=== PATIENT | female | born 1975 | race African-American/Black ===

== ENCOUNTER 2016-12-26 00:08 | Emergency (ER) | payer OTHER ==
[~2016-12-26] VITALS: Ht 182.9 cm; Wt 124.0 kg
[~2016-12-26 00:08] MED LIST: ALBU1AER5 INH; AZIT250T3 PO; BACT800T5 PO; DARU800T2 PO; DICL75TA PO; DOLU1TAB PO; HYDR-3533 PO; HYDR25TA5 PO; LISI-515 PO; METR-1 PO; RITO100 PO; TRUV200300 PO; ZOFR4TAB3 SL
[2016-12-26 00:09] VITALS: BP 188/111; PULSE 132; RESP 16; TEMP 98.9; O2SAT 99
[2016-12-26 00:20] VITALS: PULSE 109; RESP 18; O2SAT 100
[2016-12-26] MEDS ORDERED: methylPREDNISolone SOD SUCC 125 MG/2 ML VIAL IV PUSH ONE (00:30)
[2016-12-26] MEDS ORDERED: diphenhydrAMINE HCL 50 MG/ML VIAL IV PUSH ONE (00:30)
[2016-12-26] MEDS ORDERED: RESP: ALBUTEROL 2.5 MG/IPRATROPIUM 0.5 MG NEB (SCH) NEB ONE (00:30)
--- NOTE | 2016-12-26 00:33 | PD ---
HPI Chief Complaint: Chest Pain Time Seen by Provider: 00:15 Travel History International Travel<30 days: No Contact w/Intl Traveler<30days: No Traveled to known affect area: No History of Present Illness HPI Patient reports having swelling in the back of her throat and feels her throat is closing she does not know what she could've been exposed to what allergen patient denies having prior episodes of this she is very upset when she comes in the ER and she is phonating and singular ignoring her and acting mildly bizarre she is only been in the ER for about 10 minutes before she becomes very agitated she does have a rattle when she talks but there is no obvious airway compromise at this time does not know what allergen she could've been exposed to PFS Past Medical History Asthma: Yes Autoimmune Disease: Yes Heart Rhythm Problems: No Cardiac Catheterization: No Cardiovascular Problems: Yes (HTN) High Cholesterol: No Congestive Heart Failure: No Diabetes: No Diminished Hearing: No Herniated Disk: Yes (NECK) Hypertension: Yes Immune Disorder: Yes (HIV POS) Renal Failure: Yes Ulcer: Yes PNEUMOCCOCAL Vaccine (Year): 3 ?: Not : 6 Para: 6 Ovarian Cysts: Yes Tubal Ligation: Yes Past Surgical History Coronary Artery Bypass Graft: No Gynecologic Surgery: Yes Social History Alcohol Use: Yes (OCCASSIONALLY) Tobacco Use: Yes (4 TO 6 CIGS A DAY) Substance Use: Yes (MARIJUANA) Allergies-Medications (Allergen,Severity, Reaction): Coded Allergies: acetaminophen (Unverified Allergy, Severe, Itching, 10/04/16) buprenorphine (Unverified Allergy, Severe, 12/26/16) ITCHING, LIP SWELLING oxycodone (Unverified Allergy, Severe, Itching, 12/26/16) Reported Meds & Prescriptions Reported Meds & Active Scripts Active Flagyl (Metronidazole) 500 Mg Tab 500 Mg PO QID Zofran Odt (Ondansetron Odt) 4 Mg Tab 4 Mg SL Q6HR PRN Lortab (Hydrocodone-Acetaminophen) 5-325 Mg Tab 1 Tab PO Q6H PRN Truvada (Emtricitabine-Tenofovir Disoproxil Fumarate) 200-300 Mg Tab 1 Tab PO DAILY Prezista (Darunavir) 800 Mg Tab 800 Mg PO DAILY Tivicay (Dolutegravir Sodium) 50 Mg Tab 50 Mg PO DAILY Lisinopril 20 Mg Tab 20 Mg PO DAILY Diclofenac Sodium DR (Diclofenac Sodium) 75 Mg Tabdr 75 Mg PO BID PRN Bactrim DS (Sulfamethoxazole-Trimethoprim) 800-160 Mg Tab 1 Tab PO BID 7 Days Reported Hydrochlorothiazide 25 Mg Tab 25 Mg PO DAILY Azithromycin 250 Mg Tab 250 Mg PO DAILY Proair Respiclick Inh (Albuterol Sulfate) 90 Mcg/Act Aerp 1 Puff INH Q4H PRN Norvir (Ritonavir) 100 Mg Cap 300 Mg PO BID Review of Systems Except as stated in HPI: all other systems reviewed are Neg HENT: Positive: Sore Throat (throat closing sensation , thinks she was poisoned), Other Physical Exam Narrative initial evaluation of her airway -- it is patent and uvula mild enlarged , tongue normal size She walked out as I went for my stethoscope she was gone , seems slightly paranoid Data Data Last Documented VS Vital Signs Date Time Temp Pulse Resp B/P (MAP) Pulse Ox O2 Delivery O2 Flow Rate FiO2 12/26/16 01:04 12/26/16 00:20 109 18 100 Room Air 12/26/16 00:09 98.9 Orders Orders Methylprednisolone So Succ Inj (Solumedr (12/26/16 00:30) Diphenhydramine Inj (Benadryl Inj) (12/26/16 00:30) Albuterol-Ipratropium Neb (Duoneb Neb) (12/26/16 00:30) MDM Medical Decision Making Medical Screen Exam Complete: Yes Emergency Medical Condition: Yes Differential Diagnosis epiglotitis , bacterial tracheitis, pharyngitis , allergic reaction to airway vs psychogenic Sx Narrative Course I was unable to redirect the pt to stay and I explained to her the need for treatment to assure her throat did not close and risk of airway compromise, she said she would stay but within 4 minutes she walked out Procedures EKG Prior to Arrival: Yes Disposition: 07 AGAINST MEDICAL ADVICE Rick Hardin MD Dec 26, 2016 00:33
== END 2016-12-26 00:21 | disposition left against medical advice (07) ==
LOC: NEPC 00:08
DX: R07.9 Chest pain, unspecified (principal); I10 Essential (primary) hypertension; F17.210 Nicotine dependence, cigarettes, uncomplicated
CPT/HCPCS: 99281

== ENCOUNTER 2016-12-26 00:44 | Inpatient (IN) | payer OTHER ==
[~2016-12-26] VITALS: Ht 182.9 cm; Wt 129.1 kg
[2016-12-26] VITALS (17 sets, daily range): BP systolic 142–187; BP diastolic 81–114; PULSE 64–114; RESP 16–24; TEMP 97.6–98.7; O2SAT 98–100
--- NOTE | 2016-12-26 00:58 | PD ---
HPI Chief Complaint: Chest Pain Time Seen by Provider: 00:55 Travel History International Travel<30 days: No Contact w/Intl Traveler<30days: No Traveled to known affect area: No History of Present Illness HPI The patient is a 41 year old female who presents to the [facility] emergency department with a history of developing a sensation of her throat closing up approximately 2 hours prior to arrival. The patient reports additionally having constant left-sided chest pain associated with left upper quadrant abdominal pain that is been present since March. She reports that she has been seen in the emergency department for this in the past and no particular causes been able to be identified. The patient denies taking any new medications. The patient denies any new food exposures that she is aware of. The patient reports that she did take a Benadryl earlier today for the symptoms. The patient reports having a known history of asthma and COPD. The patient additionally reports having a history of HIV. She reports that she is on retroviral medications. She reports that she last had a CD4 count and viral load done a few months ago, however she does not know the results. She also does not know when she was originally diagnosed with HIV. The patient reports that the pain in her chest and upper abdomen is sharp in character. She reports that she's had a cough with congestion since this morning. She additionally reports that this morning she awoke with a swollen area underneath her chin. She denies having any dental pain. The patient reports having nausea without vomiting. On review of systems otherwise, she denies having any recent known fevers, diarrhea, urinary symptoms, or neurologic symptoms. [facility] Past Medical History Narrative Medical The patient's past medical history is significant for HIV, asthma, COPD, hypertension, chronic renal insufficiency, tobacco use, marijuana use according to the record, history of neck pain related to degenerative disc disease, history of peptic ulcer disease. Asthma: Yes Autoimmune Disease: Yes Heart Rhythm Problems: No Cardiac Catheterization: No Cardiovascular Problems: Yes (HTN) High Cholesterol: No Congestive Heart Failure: No Diabetes: No Diminished Hearing: No Herniated Disk: Yes (NECK) Hypertension: Yes Immune Disorder: Yes (HIV POS) Renal Failure: Yes Ulcer: Yes PNEUMOCCOCAL Vaccine (Year): 3 : 6 Para: 6 Ovarian Cysts: Yes Tubal Ligation: Yes Past Surgical History Narrative Surgical The patient's past surgical history is significant for a bilateral tubal ligation. Coronary Artery Bypass Graft: No Gynecologic Surgery: Yes Social History Alcohol Use: Yes (OCCASSIONALLY) Tobacco Use: Yes (4 TO 6 CIGS A DAY) Substance Use: Yes (MARIJUANA) Allergies-Medications (Allergen,Severity, Reaction): Coded Allergies: acetaminophen (Unverified Allergy, Severe, Itching, 10/04/16) buprenorphine (Unverified Allergy, Severe, 12/26/16) ITCHING, LIP SWELLING oxycodone (Unverified Allergy, Severe, Itching, 12/26/16) Reported Meds & Prescriptions Reported Meds & Active Scripts Active Flagyl (Metronidazole) 500 Mg Tab 500 Mg PO QID Zofran Odt (Ondansetron Odt) 4 Mg Tab 4 Mg SL Q6HR PRN Lortab (Hydrocodone-Acetaminophen) 5-325 Mg Tab 1 Tab PO Q6H PRN Truvada (Emtricitabine-Tenofovir Disoproxil Fumarate) 200-300 Mg Tab 1 Tab PO DAILY Prezista (Darunavir) 800 Mg Tab 800 Mg PO DAILY Tivicay (Dolutegravir Sodium) 50 Mg Tab 50 Mg PO DAILY Lisinopril 20 Mg Tab 20 Mg PO DAILY Diclofenac Sodium DR (Diclofenac Sodium) 75 Mg Tabdr 75 Mg PO BID PRN Bactrim DS (Sulfamethoxazole-Trimethoprim) 800-160 Mg Tab 1 Tab PO BID 7 Days Reported Hydrochlorothiazide 25 Mg Tab 25 Mg PO DAILY Azithromycin 250 Mg Tab 250 Mg PO DAILY Proair Respiclick Inh (Albuterol Sulfate) 90 Mcg/Act Aerp 1 Puff INH Q4H PRN Norvir (Ritonavir) 100 Mg Cap 300 Mg PO BID Review of Systems Except as stated in HPI: all other systems reviewed are Neg General / Constitutional: No: Fever Eyes: No: Visual changes HENT: Positive: Sore Throat, Congestion, No: Headaches, Rhinorrhea Cardiovascular: Positive: Chest Pain or Discomfort Respiratory: Positive: Cough, Shortness of Breath Gastrointestinal: Positive: Nausea, Abdominal Pain, No: Vomiting, Diarrhea Genitourinary: No: Dysuria Musculoskeletal: No: Pain Skin: No Rash Neurologic: No: Weakness Psychiatric: No: Depression Endocrine: No: Polydipsia Hematologic/Lymphatic: No: Easy Bruising Physical Exam Narrative General: The patient is a well-developed well-nourished female in no acute distress. The patient with talking has upper airway congestion noted, sounds of mucus in the upper airway. Head and Neck exam: Head is normocephalic atraumatic. Eyes: EOMI, pupils are equal round and reactive to light. Nose: Midline septum with pink mucous membranes Mouth: Dentition unremarkable. Moist mucus membranes. Posterior oropharynx is mild erythematous with swelling of the uvula consistent with uvulitis. No signs of thrush. No tonsillar hypertrophy. Uvula midline. Airway patent. Following underneath the tongue. Neck: The patient has what palpates to be lymphadenopathy in the anterior cervical chain. No fluctuance. No nuchal rigidity. No thyromegaly. Cardiovascular: Regular rate and rhythm without murmurs, gallops, or rubs. Lungs: Clear to auscultation bilaterally. No wheezes, rhonchi, or rales. The patient has transmission of upper airway sounds with upper airway mucus noted. Abdomen: Soft, with reported tenderness on palpation of the left upper quadrant of the abdomen, no other tenderness on palpation of the other quadrants. No guarding, rebound, or rigidity. Normal bowel sounds are audible. No tenderness on palpation of McBurney's point. Extremities: No clubbing or cyanosis. The patient has trace to 1+ nonpitting edema bilateral lower extremities. 2+ pulses in all 4 extremities. No calf tenderness on palpation. Back: No spinous process tenderness to palpation. No costovertebral angle tenderness to palpation. Neurologic Exam: Grossly nonfocal. Skin Exam: No rash noted. Intact skin that is warm and dry. Data Data Last Documented VS Vital Signs Date Time Temp Pulse Resp B/P (MAP) Pulse Ox O2 Delivery O2 Flow Rate FiO2 12/26/16 03:51 73 16 159/81 (107) 100 Room Air 12/26/16:17 21 12/26/16 00:46 97.6 Orders Orders Electrocardiogram (12/26/16 01:08) Complete Blood Count With Diff (12/26/16 01:08) Comprehensive Metabolic Panel (12/26/16 01:08) Creatine Kinase (Cpk) (12/26/16 01:08) Ckmb (Isoenzyme) Profile (12/26/16 01:08) Troponin I (12/26/16 01:08) B-Type Natriuretic Peptide (12/26/16 01:08) Prothrombin Time / Inr (Pt) (12/26/16 01:08) Act Partial Throm Time (Ptt) (12/26/16 01:08) Lipase (12/26/16 01:08) Urinalysis - C+S If Indicated (12/26/16 01:08) Magnesium (Mg) (12/26/16 01:08) Thyroid Stimulating Hormone (12/26/16 01:08) Chest, Single Ap (12/26/16 01:08) Iv Access Insert/Monitor (12/26/16 01:08) Ecg Monitoring (12/26/16 01:08) Oximetry (12/26/16 01:08) Ed Urine Pregnancytest Poc (12/26/16 01:08) Drug Screen, Random Urine (12/26/16 01:08) Alcohol (Ethanol) (12/26/16 01:08) Ct Soft Tiss Neck W Iv Cont (12/26/16 ) Methylprednisolone So Succ Inj (Solumedr (12/26/16 01:15) Diphenhydramine Inj (Benadryl Inj) (12/26/16 01:15) Famotidine Inj (Pepcid Inj) (12/26/16 01:15) Epinephrine (1:1000) Inj (Adrenalin (1:1 (12/26/16 01:15) Sodium Chlorid 0.9% 500 Ml Inj (Ns 500 M (12/26/16 01:15) Albuterol-Ipratropium Neb (Duoneb Neb) (12/26/16 01:15) CKMB (12/26/16 01:15) CKMB% (12/26/16 01:15) Albuterol-Ipratropium Neb (Duoneb Neb) (12/26/16 02:45) Iohexol 350 Inj (Omnipaque 350 Inj) (12/26/16 02:56) Epinephrine (1:1000) Inj (Adrenalin (1:1 (12/26/16 03:45) Racemic Epinephrine 2.25% Neb (Racepinep (12/26/16 03:45) Admit Order (Ed Use Only) (12/26/16 03:56) Consult Ent (12/26/16 ) Consult General Surgery (12/26/16 ) Labs Laboratory Tests Test 12/26/16 01:15 12/26/16 03:40 White Blood Count 4.5 TH/MM3 Red Blood Count 4.00 MIL/MM3 Hemoglobin 12.1 GM/DL Hematocrit 36.4 % Mean Corpuscular Volume 90.8 FL Mean Corpuscular Hemoglobin 30.1 PG Mean Corpuscular Hemoglobin Concent 33.2 % Red Cell Distribution Width 13.8 % Platelet Count 263 TH/MM3 Mean Platelet Volume 8.7 FL Neutrophils (%) (Auto) 42.3 % Lymphocytes (%) (Auto) 45.9 % Monocytes (%) (Auto) 10.1 % Eosinophils (%) (Auto) 0.9 % Basophils (%) (Auto) 0.8 % Neutrophils # (Auto) 1.9 TH/MM3 Lymphocytes # (Auto) 2.1 TH/MM3 Monocytes # (Auto) 0.5 TH/MM3 Eosinophils # (Auto) 0.0 TH/MM3 Basophils # (Auto) 0.0 TH/MM3 CBC Comment DIFF FINAL Differential Comment Prothrombin Time 10.1 SEC Prothromb Time International Ratio 0.9 RATIO Activated Partial Thromboplast Time 24.0 SEC Blood Urea Nitrogen 13 MG/DL Creatinine 1.04 MG/DL Random Glucose 85 MG/DL Total Protein 9.3 GM/DL Albumin 3.4 GM/DL Calcium Level 8.5 MG/DL Magnesium Level 1.9 MG/DL Alkaline Phosphatase 86 U/L Aspartate Amino Transf (AST/SGOT) 30 U/L Alanine Aminotransferase (ALT/SGPT) 24 U/L Total Bilirubin 0.1 MG/DL Sodium Level 139 MEQ/L Potassium Level 4.1 MEQ/L Chloride Level 107 MEQ/L Carbon Dioxide Level 22.1 MEQ/L Anion Gap 10 MEQ/L Estimat Glomerular Filtration Rate 71 ML/MIN Total Creatine Kinase 136 U/L Creatine Kinase MB 1.3 NG/ML Troponin I LESS THAN 0.02 NG/ML B-Type Natriuretic Peptide 44 PG/ML Lipase 129 U/L Thyroid Stimulating Hormone 3rd Gen 0.998 uIU/ML Ethyl Alcohol Level LESS THAN 3 MG/DL Urine Color YELLOW Urine Turbidity HAZY Urine pH 6.0 Urine Specific [place] 1.014 Urine Protein TRACE mg/dL Urine Glucose (UA) NEG mg/dL Urine Ketones NEG mg/dL Urine Occult Blood SMALL Urine Nitrite NEG Urine Bilirubin NEG Urine Urobilinogen LESS THAN 2.0 MG/DL Urine Leukocyte Esterase TRACE Urine RBC LESS THAN 1 /hpf Urine WBC 1 /hpf Urine Squamous Epithelial Cells 6 /hpf Urine Bacteria RARE /hpf Urine Hyaline Casts 4 /lpf Urine Mucus FEW /lpf Microscopic Urinalysis Comment CULT NOT INDICATED Urine Opiates Screen NEG Urine Barbiturates Screen NEG Urine Amphetamines Screen NEG Urine Benzodiazepines Screen NEG Urine Cocaine Screen NEG Urine Cannabinoids Screen POS MDM Medical Decision Making Medical Screen Exam Complete: Yes Emergency Medical Condition: Yes Medical Record Reviewed: Yes Interpretation(s) Last Impressions Chest X-Ray 12/26/16 0108 Signed Impressions: Service Date/Time: Monday, December 26, 2016 01:16 - CONCLUSION: Cardiomegaly. No acute cardiopulmonary disease. Christiano Harris MD Neck CT 12/26/16 0000 Signed Impressions: Service Date/Time: Monday, December 26, 2016 02:57 - CONCLUSION: 1. Findings of epiglottitis with supraglottic edema and significant narrowing of the glottic and supraglottic airway. The airway is potentially at risk. 2. There is no evidence of abscess but with retropharyngeal effusion Christiano Harris MD Differential Diagnosis Angioedema, versus allergic reaction, versus infectious uvulitis, versus peritonsillar abscess, versus epiglottitis. Narrative Course During the course of the patients emergency department visit, the patients history, examination, and differential diagnosis were reviewed with the patient. The patient was placed on a insulation extruder operator with oximetry and frequent blood pressure monitoring. The patient had IV access obtained and blood work sent for analysis. The patient had an EKG done on arrival. The patient's EKG shows a sinus rhythm without any acute ST segment elevation. A CT scan of the soft tissues of the neck with IV contrast was ordered. Chest x-ray was ordered. The patient was initially provided Solu-Medrol 125 mg IV, famotidine 20 mg IV, Benadryl 25 mg IV, epinephrine 0.3 mg IM. The patient had a DuoNeb 1 administered. The patient was reexamined. The patient's O2 saturations continued to be 97-100 % on room air, however the patient reports continued shortness of breath. The patient's airway was reexamined. The patient's uvula edema appears to be slightly improved. The patient was given a second DuoNeb. The patient again was reexamined and at that point was lying on her side and reported feeling improved. The patients laboratory studies were reviewed and remarkable for a white count of 4.5, hemoglobin 12.1, platelets 263, with a differential remarkable for a lymphocytosis at 45.9, monocytosis at 10.1. CMP is remarkable for creatinine 1.04, total bilirubin 0.1, CPK 136, CK-MB 1.3, troponin I less than 0.02, BNP 44 , total protein 9.3, lipase 129, TSH 0.998, PT 10.1, PTT 24, urine drug screen positive for cannabinoid, alcohol level less than 3, urinalysis shows small occult blood, trace leukocyte esterase, rare bacteria. Radiology studies were reviewed and remarkable for a chest x-ray that shows cardiomegaly, no acute cardiopulmonary disease. CT scan of the soft tissues of the neck shows findings of epiglottitis with supraglottic edema and significant narrowing of the glottic and supraglottic airway. The airway is potentially at risk. There is no evidence of abscess, however retropharyngeal effusion is noted. Lymphadenopathy is noted. A call was emergently placed out to the anesthesiologist conveyor console operator. He requested that I also discussed this with the research and development director conveyor console operator. I spoke to Dr. Michaud regarding this patient's case and he will discuss this further with the anesthesiologist conveyor console operator. Dr. Michaud callback regarding the patient's case. He recommended that a general surgeon be contacted if the patient needs to go to the OR for definitive airway as he would not do a tracheostomy. He recommended continued IV steroids and racemic epinephrine nebulized. Dr. Turner, the anesthesiologist, and I evaluated the patient again at the patient's bedside. At this point, the patient has improved after racemic epinephrine was administered by nebulizer. A call was placed out to the anesthesiologist. Dr. Glover also came and evaluated the patient and the patient appears to be improving according to him as well. He will monitor the patient in the intensive care unit. The patients results were discussed with the patient, including the plan of care. I explained that further testing and/ or monitoring is indicated based on the patients history, examination, and/ or laboratory findings. Therefore, I recommended admission for additional evaluation. The patient expressed understanding and was agreeable with this plan. The patient was admitted to the hospital in guarded condition and sent to a bed under the care of the punchboard stuffer. Critical Care Narrative Aggregate critical care time was 45 minutes. Time to perform other separately billable procedures was not included in the critical care time. My time did not include minutes spent treating any other patients simultaneously or on activities that did not directly contribute to the patient's treatment. The services I provided to this patient were to treat and/or prevent clinically significant deterioration that could result in: Respiratory failure versus cardiovascular collapse I provided critical care services requiring my management, as noted below: Chart data review, documentation time, medication orders and management, vital sign assessments/reviewing monitor data, ordering and reviewing lab tests, ordering and interpreting/reviewing x-rays and diagnostic studies, care of the patient and discussion of the patient with the admitting physicians. Physician Communication Physician Communication The patient's case including history, pertinent physical examination findings, and laboratory studies were discussed with Dr. Glover. It was agreed that the patient would be admitted to the punchboard stuffer service. Diagnosis Primary Impression: Acute epiglottitis Qualified Codes: J05.10 - Acute epiglottitis without obstruction Admitting Information Admitting Physician Requests: Kelsey Perkins MD Dec 26, 2016 00:58
[2016-12-26] MEDS ORDERED: RESP: ALBUTEROL 2.5 MG/IPRATROPIUM 0.5 MG NEB (SCH) NEB ONE ×2 (01:15→02:45)
[2016-12-26] MEDS ORDERED: FAMOTIDINE 20 MG/2 ML VIAL IV PUSH SCH (01:15)
[2016-12-26] MEDS ORDERED: diphenhydrAMINE HCL 50 MG/ML VIAL IV PUSH ONE (01:15)
[2016-12-26] MEDS ORDERED: EPINEPHrine HCL (1:1000) 1 MG/ML VIAL IM ONE ×2 (01:15→03:45)
[2016-12-26] MEDS ORDERED: methylPREDNISolone SOD SUCC 125 MG/2 ML VIAL IV PUSH ONE (01:15)
[2016-12-26] MEDS ORDERED: SODIUM CHLORID 0.9% 500 ML INJ 500 ML IV ONE (01:15)
--- NOTE | 2016-12-26 01:32 | RADRPT ---
EXAM DATE/TIME: 12/26/2016 01:16 [facility] COMPARISON: CHEST SINGLE AP, February 13, 2016, 3:59. INDICATIONS : Chest pain MEDICAL HISTORY : Hypertension. HIV. Renal failure, chronic. SURGICAL HISTORY : Cervical fusion ENCOUNTER: Initial ACUITY: 1 day PAIN SCORE: 8/10 LOCATION: Bilateral chest FINDINGS: The cardiac silhouette is enlarged in transverse diameter. The lungs are free of acute parenchymal op acity. No effusions are identified. Osseous structures are intact. CONCLUSION: Cardiomegaly. No acute cardiopulmonary disease. Christiano Harris MD on December 26, 2016 at 1:30 Board Certified Radiologist. This report was verified electronically.
[2016-12-26 01:41] LABS: AUTOMATED NEUTROPHIL # 1.9 TH/MM3 (1.8-7.7); BASOPHIL % 0.8 % (0.0-2.0); EOSINOPHIL % 0.9 % (0.0-4.0); HEMATOCRIT 36.4 % (35.0-46.0); HEMOGLOBIN 12.1 GM/DL (11.6-15.3); LYMPH % 45.9 % (9.0-44.0); LYMPHOCYTE # 2.1 TH/MM3 (1.0-4.8); MEAN CELL VOLUME 90.8 FL (80.0-100.0); MEAN CORPUSCULAR HEMOGLOBIN 30.1 PG (27.0-34.0); MEAN CORPUSCULAR HGB CONC 33.2 % (32.0-36.0); MEAN PLATELET VOLUME 8.7 FL (7.0-11.0); MONO % 10.1 % (0.0-8.0); MONOCYTE # 0.5 TH/MM3 (0-0.9); NEUT % 42.3 % (16.0-70.0); PLATELET COUNT 263 TH/MM3 (150-450); RED CELL DISTRIBUTION WIDTH 13.8 % (11.6-17.2); WHITE BLOOD COUNT 4.5 TH/MM3 (4.0-11.0)
[2016-12-26 01:58] LABS: INTERNATIONAL NORMALIZED RATIO 0.9 RATIO; PROTHROMBIN TIME - PATIENT 10.1 SEC (9.8-11.6)
[2016-12-26 02:21] LABS: ALKALINE PHOSPHATASE 86 U/L (45-117); ALT (GPT) 24 U/L (10-53); TOTAL BILIRUBIN ADULT 0.1 MG/DL (0.2-1.0); TOTAL PROTEIN 9.3 GM/DL (6.4-8.2); TROPONIN I LESS THAN 0.02 NG/ML (0.02-0.05)
[2016-12-26 02:22] LABS: ALBUMIN 3.4 GM/DL (3.4-5.0); AST (GOT) 30 U/L (15-37); BICARBONATE 22.1 MEQ/L (21.0-32.0); BLOOD UREA NITROGEN 13 MG/DL (7-18); CALCIUM 8.5 MG/DL (8.5-10.1); CHLORIDE 107 MEQ/L (98-107); CREATININE 1.04 MG/DL (0.50-1.00); GLOMERULAR FILTRATION RATE 71 ML/MIN (>89); GLUCOSE,RANDOM 85 MG/DL (74-106); LIPASE 129 U/L (73-393); MAGNESIUM 1.9 MG/DL (1.5-2.5); SODIUM (NA) 139 MEQ/L (136-145)
[2016-12-26] MEDS ORDERED: IOHEXOL 350 MG/ML 10 ML VIAL (for RAD DIAG) IVCONTRAST ONE (02:56)
--- NOTE | 2016-12-26 03:19 | RADRPT ---
EXAM DATE/TIME: 12/26/2016 02:57 [facility] COMPARISON: No previous studies available for comparison. INDICATIONS : Sore throat; possible abscess. IV CONTRAST: 70 cc Omnipaque 350 (iohexol) IV RADIATION DOSE: 20.84 CTDIvol (mGy) MEDICAL HISTORY : Hypertension. HIV. Asthma SURGICAL HISTORY : Tubal ligation. Cervical fusion ENCOUNTER: Initial ACUITY: 1 day PAIN SCALE: 5/10 LOCATION: neck TECHNIQUE: Volumetric scanning of the neck was performed. Using automated exposure control and adjustment of th e mA and/or kV according to patient size, radiation dose was kept as low as reasonably achievable to obtain optimal diagnostic quality images. DICOM format image data is available electronically for r eview and comparison. FINDINGS: No deeply infiltrating mass is identified. The epiglottis is enlarged and there is also edema involvi ng the hypopharynx and glottis in a circumferential fashion. There is edema in the retropharyngeal T here is no evidence of abscess. The thyroid gland demonstrates no abnormality. The lung apices demons trate no abnormality. There is bilateral adenopathy likely reactive in nature. CONCLUSION: 1. Findings of epiglottitis with supraglottic edema and significant narrowing of the glottic and supr aglottic airway. The airway is potentially at risk. 2. There is no evidence of abscess but with retropharyngeal effusion Christiano Harris MD on December 26, 2016 at 3:13 Board Certified Radiologist. This report was verified electronically.
[2016-12-26] MEDS ORDERED: RESP: RACEPINEPHRINE 2.25% 0.5 ML NEB NEB ONE (03:45)
[2016-12-26 04:03] LABS: BACTERIA, URINE RARE /hpf; BILIRUBIN, URINE NEG (NEG); BLOOD, URINE SMALL (NEG); GLUCOSE,URINE NEG (NEG); HYALINE CAST, URINE 4 /lpf (RARE); KETONE, URINE NEG (NEG); MUCUS URINE FEW /lpf (OCC); NITRITE,URINE NEG (NEG); SQUAMOUS EPITHELIAL CELL URINE 6 /hpf (0-5); URINE COLOR YELLOW (YELLW/STRAW); URINE LEUKOCYTE ESTERASE TRACE (NEG)
--- NOTE | 2016-12-26 04:39 | HHI.HP ---
HPI Service Critical Care Medicine Primary Care Physician Unknown Admission Diagnosis Epiglottitis Diagnosis: Travel History International Travel<30 Days: No Contact w/Intl Traveler <30 Da: No Traveled to Known Affected Are: No History of Present Illness 41 year old female presents with a history of developing a sensation of her throat closing up approximately 2 hours prior to arrival. The patient reports additionally having constant left-sided chest pain associated with left upper quadrant abdominal pain that is been present since March. She reports that she has been seen in the emergency department for this in the past and no particular causes been able to be identified. The patient denies taking any new medications. The patient denies any new food exposures that she is aware of. The patient reports that she did take a Benadryl earlier today for the symptoms without any relief or improvement. She has a known history of asthma and COPD. she also reports having a history of HIV and is compliant with her retroviral medications. She had her last CD4 count and viral load done a few months ago, however she does not know the results. She reports that she's had a cough with congestion since this morning. The CT of the neck done in the emergency department showed acute epiglottitis with supra-epiglottic edema. She is admitted to ICU for an airway close monitoring. Review of Systems Constitutional: DENIES: Diaphoretic episodes, Fatigue, Fever, Weight gain, Weight loss, Chills, Dizziness, Change in appetite, Night Sweats Endocrine: DENIES: Abnorml menstrual pattern, Heat/cold intolerance, Polydipsia , Polyuria, Polyphagia Eyes: DENIES: Blurred vision, Diplopia, Eye inflammation, Eye pain, Vision loss , Photosensitivity, Double Vision Ears, nose, mouth, throat: DENIES: Tinnitus, Hearing loss, Vertigo, Nasal discharge, Oral lesions, Throat pain, Hoarseness, Ear Pain, Running Nose, Epistaxis, Sinus Pain, Toothache, Odynophagia Respiratory: DENIES: Apneas, Cough, Snoring, Wheezing, Hemoptysis, Sputum production, Shortness of breath Cardiovascular: DENIES: Chest pain, Palpitations, Syncope, Dyspnea on Exertion , PND, Lower Extremity Edema, Orthopnea, Claudication Gastrointestinal: DENIES: Abdominal pain, Black stools, Bloody stools, Constipation, Diarrhea, Nausea, Vomiting, Difficulty Swallowing, Anorexia Genitourinary: DENIES: Abnormal vaginal bleeding, Dysmenorrhea, Dyspareunia, Sexual dysfunction, Urinary frequency, Urinary incontinence, Urgency, Hematuria , Dysuria, Nocturia, Vaginal discharge Musculoskeletal: DENIES: Joint pain, Muscle aches, Stiffness, Joint Swelling, Back pain, Neck pain Integumentary: DENIES: Abnormal pigmentation, Pruritus, Rash, Nail changes, Breast masses, Breast skin changes, Nipple discharge Hematologic/lymphatic: DENIES: Bruising, Lymphadenopathy Immunologic/allergic: DENIES: Eczema, Urticaria Neurologic: DENIES: Abnormal gait, Headache, Localized weakness, Paresthesias, Seizures, Speech Problems, Tremor, Poor Balance Psychiatric: DENIES: Anxiety, Confusion, Mood changes, Depression, Hallucinations, Agitation, Suicidal Ideation, Homicidal Ideation, Delusions Past Family Social History Allergies: Coded Allergies: acetaminophen (Unverified Allergy, Severe, Itching, 10/04/16) buprenorphine (Unverified Allergy, Severe, 12/26/16) ITCHING, LIP SWELLING oxycodone (Unverified Allergy, Severe, Itching, 12/26/16) Past Medical History HIV, asthma, COPD, hypertension, chronic renal insufficiency, tobacco use, marijuana use according to the record, history of neck pain related to degenerative disc disease, history of peptic ulcer disease. Past Surgical History Tubal ligation Reported Medications Reported Meds & Active Scripts Active Flagyl (Metronidazole) 500 Mg Tab 500 Mg PO QID Zofran Odt (Ondansetron Odt) 4 Mg Tab 4 Mg SL Q6HR PRN Lortab (Hydrocodone-Acetaminophen) 5-325 Mg Tab 1 Tab PO Q6H PRN Truvada (Emtricitabine-Tenofovir Disoproxil Fumarate) 200-300 Mg Tab 1 Tab PO DAILY Prezista (Darunavir) 800 Mg Tab 800 Mg PO DAILY Tivicay (Dolutegravir Sodium) 50 Mg Tab 50 Mg PO DAILY Lisinopril 20 Mg Tab 20 Mg PO DAILY Diclofenac Sodium DR (Diclofenac Sodium) 75 Mg Tabdr 75 Mg PO BID PRN Bactrim DS (Sulfamethoxazole-Trimethoprim) 800-160 Mg Tab 1 Tab PO BID 7 Days Reported Hydrochlorothiazide 25 Mg Tab 25 Mg PO DAILY Azithromycin 250 Mg Tab 250 Mg PO DAILY Proair Respiclick Inh (Albuterol Sulfate) 90 Mcg/Act Aerp 1 Puff INH Q4H PRN Norvir (Ritonavir) 100 Mg Cap 300 Mg PO BID Active Ordered Medications Current Medications Medications (Trade) Dose Ordered Sig/Fiona Route PRN Reason Start Time Stop Time Status Last Admin Dose Admin Famotidine (Pepcid Inj) 20 mg ONCE IV PUSH 12/26/16 01:15 12/26/16 01:30 Azithromycin (Zithromax) 250 mg DAILY PO 12/26/16 09:00 Darunavir (Prezista) 800 mg DAILY PO 12/26/16 09:00 Diclofenac Sodium (Voltaren Dr) 75 mg BID PRN PO PAIN SCALE 1 TO 10 12/26/16 04:45 UNV Emtricitabine/ Tenofovir (Truvada 200-300 Mg) 1 tab DAILY PO 12/26/16 09:00 Acetaminophen/ Hydrocodone Bitart ([place] 5-325 Mg) 1 tab Q6H PRN PO PAIN 12/26/16 04:45 UNV Metronidazole (Flagyl) 500 mg QID PO 12/26/16 09:00 Ritonavir (Norvir) 300 mg BID PO 12/26/16 09:00 Trimethoprim/ Sulfamethoxazole (Bactrim Ds 800-160 Mg) 1 tab BID PO 12/26/16 09:00 Non-Formulary Medication 1 puff Q4H PRN INH SHORTNESS OF BREATH 12/26/16 04:45 UNV Sodium Chloride 1,000 ml @ 84 mls/hr [id number] IV 12/26/16 04:32 Sodium Chloride (NS Flush) 2 ml UNSCH PRN IV FLUSH FLUSH AFTER USING IV ACCESS 12/26/16 04:45 Sodium Chloride (NS Flush) 2 ml BID IV FLUSH 12/26/16 09:00 Acetaminophen (Tylenol) 650 mg Q6H PRN PO PAIN 1-10 AND/OR FEVER >101F 12/26/16 04:45 UNV Famotidine (Pepcid Inj) 20 mg Q12HR IV PUSH 12/26/16 09:00 UNV Ondansetron HCl (Zofran Inj) 4 mg Q6H PRN IV PUSH NAUSEA OR VOMITING 12/26/16 04:45 UNV Albuterol/ Ipratropium (Duoneb Neb) 1 ampule Q6HR NEB INH 12/26/16 10:00 UNV Albuterol/ Ipratropium (Duoneb Neb) 1 ampule Q2HR NEB PRN INH WHEEZING 11/6/17 04:45 UNV Heparin Sodium (Porcine) (Heparin Inj) 5,000 units Q8H SQ 12/26/16 04:45 UNV Miscellaneous Information 1 [id number] XX 12/26/16 04:45 UNV Chlorhexidine Gluconate (Chlorhexidine 2% Cloth) 3 pack Taper DAILY@04 TOP 12/27/16 04:00 12/23/17 03:59 UNV Chlorhexidine Gluconate (Chlorhexidine 2% Cloth) 3 pack UNSCH PRN TOP HYGIENIC CARE 12/26/16 04:45 UNV Senna/Docusate Sodium (Jaylin-Colace) 1 tab BID PO 12/26/16 09:00 UNV Magnesium Hydroxide (Milk Of Magnesia Liq) 30 ml Q12H PRN PO Mild constipation 12/26/16 04:45 UNV Sennosides (Senokot) 17.2 mg Q12H PRN PO Moderate constipation 12/26/16 04:45 UNV Bisacodyl (Dulcolax Supp) 10 mg DAILY PRN RECTAL SEVERE CONSITIPATION 12/26/16 04:45 UNV Lactulose (Lactulose Liq) 30 ml DAILY PRN PO SEVERE CONSITIPATION 12/26/16 04:45 UNV Ceftriaxone Sodium 1000 mg/ Sodium Chloride 100 ml @ 200 mls/hr Q12H IV 12/26/16 04:45 UNV Pharmacy Profile Note 0 ml @ 0 mls/hr UNSCH OTHER 12/26/16 04:45 UNV Vancomycin HCl 1000 mg/Sodium Chloride 250 ml @ 250 mls/hr ONCE ONCE IV 12/26/16 04:45 12/26/16 05:44 UNV Family History No family history significant for early coronary artery disease Social History Smokes medical marijuana Smokes tobacco Denies alcohol or illicit drug abuse Physical Exam Vital Signs Vital Signs Date Time Temp Pulse Resp B/P (MAP) Pulse Ox O2 Delivery O2 Flow Rate FiO2 12/26/16 03:51 73 16 159/81 (107) 100 Room Air 12/26/16 01:29 98 169/109 12/26/16 01:17 100 21 12/26/16 01:01 106 18 178/111 (133) 100 Room Air 12/26/16 00:55 18 100 Room Air 12/26/16 00:46 97.6 110 20 180/109 (132) 100 Physical Exam GENERAL: Well-nourished, well-developed patient. SKIN: Warm and dry. HEAD: Normocephalic. EYES: No scleral icterus. No injection or drainage. NECK: Supple, trachea midline. No JVD or lymphadenopathy. CARDIOVASCULAR: Regular rate and rhythm without murmurs, gallops, or rubs. RESPIRATORY: Breath sounds equal bilaterally. No accessory muscle use. GASTROINTESTINAL: Abdomen soft, non-tender, nondistended. MUSCULOSKELETAL: No cyanosis, or edema. BACK: Nontender without obvious deformity. NEURO EXAM: Mental Status: The patient is alert and oriented to person, place, and time with normal speech. Cranial Nerves: Visual acuity intact bilaterally. Visual scott normal in all quadrants. Pupils are round, reactive to light. Extraocular movements are intact without ptosis. Hearing is normal bilaterally. Voice is normal. Tongue protrudes midline and moves symmetrically. Reflexes: Biceps, patellar, and Achilles are 2/4 bilaterally. No clonus. Laboratory Laboratory Tests Test 12/26/16 01:15 12/26/16 03:40 White Blood Count 4.5 Red Blood Count 4.00 Hemoglobin 12.1 Hematocrit 36.4 Mean Corpuscular Volume 90.8 Mean Corpuscular Hemoglobin 30.1 Mean Corpuscular Hemoglobin Concent 33.2 Red Cell Distribution Width 13.8 Platelet Count 263 Mean Platelet Volume 8.7 Neutrophils (%) (Auto) 42.3 Lymphocytes (%) (Auto) 45.9 Monocytes (%) (Auto) 10.1 Eosinophils (%) (Auto) 0.9 Basophils (%) (Auto) 0.8 Neutrophils # (Auto) 1.9 Lymphocytes # (Auto) 2.1 Monocytes # (Auto) 0.5 Eosinophils # (Auto) 0.0 Basophils # (Auto) 0.0 CBC Comment DIFF FINAL Differential Comment Prothrombin Time 10.1 Prothromb Time International Ratio 0.9 Activated Partial Thromboplast Time 24.0 Blood Urea Nitrogen 13 Creatinine 1.04 Random Glucose 85 Total Protein 9.3 Albumin 3.4 Calcium Level 8.5 Magnesium Level 1.9 Alkaline Phosphatase 86 Aspartate Amino Transf (AST/SGOT) 30 Alanine Aminotransferase (ALT/SGPT) 24 Total Bilirubin 0.1 Sodium Level 139 Potassium Level 4.1 Chloride Level 107 Carbon Dioxide Level 22.1 Anion Gap 10 Estimat Glomerular Filtration Rate 71 Total Creatine Kinase 136 Creatine Kinase MB 1.3 Troponin I LESS THAN 0.02 B-Type Natriuretic Peptide 44 Lipase 129 Thyroid Stimulating Hormone 3rd Gen 0.998 Ethyl Alcohol Level LESS THAN 3 Urine Color YELLOW Urine Turbidity HAZY Urine pH 6.0 Urine Specific [place] 1.014 Urine Protein TRACE Urine Glucose (UA) NEG Urine Ketones NEG Urine Occult Blood SMALL Urine Nitrite NEG Urine Bilirubin NEG Urine Urobilinogen LESS THAN 2.0 Urine Leukocyte Esterase TRACE Urine RBC LESS THAN 1 Urine WBC 1 Urine Squamous Epithelial Cells 6 Urine Bacteria RARE Urine Hyaline Casts 4 Urine Mucus FEW Microscopic Urinalysis Comment CULT NOT INDICATED Urine Opiates Screen NEG Urine Barbiturates Screen NEG Urine Amphetamines Screen NEG Urine Benzodiazepines Screen NEG Urine Cocaine Screen NEG Urine Cannabinoids Screen POS Result Diagram: 12/26/16 0115 12/26/16 0115 Imaging Last 24 hours Impressions Chest X-Ray 12/26/16 0108 Signed Impressions: Service Date/Time: Monday, December 26, 2016 01:16 - CONCLUSION: Cardiomegaly. No acute cardiopulmonary disease. Christiano Harris MD Neck CT 12/26/16 0000 Signed Impressions: Service Date/Time: Monday, December 26, 2016 02:57 - CONCLUSION: 1. Findings of epiglottitis with supraglottic edema and significant narrowing of the glottic and supraglottic airway. The airway is potentially at risk. 2. There is no evidence of abscess but with retropharyngeal effusion MD Halle Butler VTE Risk Assessment Caprini VTE Risk Assessment: Mod/High Risk (score >= 2) Caprini Risk Assessment Model Point Value = 1 Point Value = 2 Point Value = 3 Point Value = 5 Age 41-60 Minor surgery BMI > 25 kg/m2 Swollen legs Varicose veins or History of unexplained or recurrent spontaneous Oral contraceptives or hormone replacement Sepsis (< 1 month) Serious lung disease, including pneumonia (< 1 month) Abnormal pulmonary function Acute myocardial infarction Congestive heart failure (< 1 month) History of inflammatory bowel disease Medical patient at bed rest Age 61-74 Arthroscopic surgery Major open surgery (> 45 min) Laparoscopic surgery (> 45 min) Malignancy Confined to bed (> 72 hours) Immobilizing plaster cast Central venous access Age >= 75 History of VTE Family history of VTE Factor V Leiden Prothrombin [id number] Lupus anticoagulant Anticardiolipin antibodies Elevated serum homocysteine Heparin-induced thrombocytopenia Other congenital or acquired thrombophilia Stroke (< 1 month) Elective arthroplasty Hip, pelvis, or leg fracture Acute spinal cord injury (< 1 month) Prophylaxis Regimen Total Risk Factor Score Risk Level Prophylaxis Regimen 0-1 Low Early ambulation 2 Moderate Order ONE of the following: *Sequential Compression Device (SCD) *Heparin 5000 units SQ BID 3-4 Higher Order ONE of the following medications: *Heparin 5000 units SQ TID *Enoxaparin/Lovenox 40 mg SQ daily (WT < 150 kg, CrCl > 30 mL/min) *Enoxaparin/Lovenox 30 mg SQ daily (WT < 150 kg, CrCl > 10-29 mL/min) *Enoxaparin/Lovenox 30 mg SQ BID (WT < 150 kg, CrCl > 30 mL/min) AND/OR *Sequential Compression Device (SCD) 5 or more Highest Order ONE of the following medications: *Heparin 5000 units SQ TID (Preferred with Epidurals) *Enoxaparin/Lovenox 40 mg SQ daily (WT < 150 kg, CrCl > 30 mL/min) *Enoxaparin/Lovenox 30 mg SQ daily (WT < 150 kg, CrCl > 10-29 mL/min) *Enoxaparin/Lovenox 30 mg SQ BID (WT < 150 kg, CrCl > 30 mL/min) AND *Sequential Compression Device (SCD) Assessment and Plan Assessment and Plan Epiglottitis - Decadron - Ceftriaxone - Vancomycin - Admit to ICU - O2 supplementation HIV - Continue home HAART medication - Infectious disease consultation for epiglottitis immunocompromised patient Asthma - DuoNeb scheduled and when necessary - IV steroid COPD - DuoNeb scheduled and when necessary Hypertension - Hold home hypertensive meds in the settings of acute infection - Resume when hemodynamically stable DVT GI prophylaxis - Teds SCDs - IV Pepcid - Subcutaneous heparin Critical Care: The total critical care time was 35 minutes. Time to perform other separately billable procedures was not included in the critical care time. Mauro Glover MD Dec 26, 2016 04:39
[2016-12-26] MEDS ORDERED: SODIUM CHLORIDE 0.9% FLUSH 10 ML FLUSH IV FLUSH PRN (04:45)
[2016-12-26] MEDS ORDERED: MAGNESIUM HYDROXIDE SUSP 30 ML CUP PO PRN (04:45)
[2016-12-26] MEDS ORDERED: LACTULOSE SYRUP 20 GM/30 ML CUP PO PRN (04:45)
[2016-12-26] MEDS ORDERED: ONDANSETRON HCL 4 MG/2 ML VIAL IV PUSH PRN (04:45)
[2016-12-26] MEDS ORDERED: SENNOSIDES 8.6 MG TAB PO PRN (04:45)
[2016-12-26] MEDS ORDERED: ACETAMINOPHEN 325 MG TAB PO PRN ×2 (04:45→05:30)
[2016-12-26] MEDS ORDERED: MISCELLANEOUS NURSING INFORMATION XX SCH (04:45)
[2016-12-26] MEDS ORDERED: Vancomycin Consult Pharmacy 1 EA OTHER SCH (04:45)
[2016-12-26] MEDS ORDERED: RESP: ALBUTEROL 2.5 MG/IPRATROPIUM 0.5 MG NEB (PRN) INH (04:45)
[2016-12-26] MEDS ORDERED: CHLORHEXIDINE GLUCONATE 2 % 1 PACK (2 CLOTHS) TOP PRN (04:45)
[2016-12-26] MEDS ORDERED: DICLOFENAC SODIUM 75 MG DELAYED RELEASE TAB PO PRN (04:45)
[2016-12-26] MEDS ORDERED: BISACODYL 10 MG SUPP RECTAL PRN (04:45)
[2016-12-26] MEDS ORDERED: VANCOMYCIN INJ 1,000 MG in SODIUM CHLOR 0.9% 250 ML INJ 250 ML IV ONE (04:45)
[2016-12-26] MEDS ORDERED: ACETAMINOPHEN/HYDROcodone 325 MG/5 MG TAB PO PRN (04:45)
[2016-12-26] MEDS: SODIUM CHLOR 0.9% 1000 ML INJ 1,000 ML IV SCH (05:06)
[2016-12-26] MEDS: HEPARIN SODIUM - SQ 10,000 UNITS/ML VIAL SQ SCH ×3 (05:07→20:58)
[2016-12-26] MEDS: cefTRIAXone INJ 1,000 MG in SODIUM CHLORIDE 0.9% INJ 100 ML IV SCH ×2 (05:09→16:53)
[2016-12-26] MEDS ORDERED: ALBUTEROL SULFATE 90 MCG/ACT HFA 8 GM INHALER INH PRN (05:15)
[2016-12-26] MEDS: DEXAMETHASONE SOD PHOS 4 MG/ML VIAL IV PUSH SCH ×4 (05:23→23:38)
[2016-12-26] MEDS ORDERED: VANCOMYCIN INJ 2,000 MG in SODIUM CHLORID 0.9% 500 ML INJ 500 ML IV ONE (06:00)
[2016-12-26] MEDS ORDERED: RESP: RACEPINEPHRINE 2.25% 0.5 ML NEB NEB PRN (06:45)
--- NOTE | 2016-12-26 07:21 | HHI.CCPN ---
Subjective Remarks/Hospital Course 41 year old female presents with a history of developing a sensation of her throat closing up approximately 2 hours prior to arrival. The patient reports additionally having constant left-sided chest pain associated with left upper quadrant abdominal pain that is been present since March. She reports that she has been seen in the emergency department for this in the past and no particular causes been able to be identified. The patient denies taking any new medications. The patient denies any new food exposures that she is aware of. The patient reports that she did take a Benadryl earlier today for the symptoms without any relief or improvement. She has a known history of asthma and COPD. she also reports having a history of HIV and is compliant with her retroviral medications. She had her last CD4 count and viral load done a few months ago, however she does not know the results. She reports that she's had a cough with congestion since this morning. The CT of the neck done in the emergency department showed acute epiglottitis with supra-epiglottic edema. She is admitted to ICU for an airway close monitoring. 12/26: Airway patent and breathing without struggling. Auscultation of neck has no stridor, just mildly accelerated flow. Voice is clearer. Improved after racemic epi, decadron, antibiotics. Will hold lisinopril in case this is a form of angioedema, substitute hydralazine. Objective Vital Signs Date Time Temp Pulse Resp B/P (MAP) Pulse Ox O2 Delivery O2 Flow Rate FiO2 12/26/16 06:30 Room Air 12/26/16 06:30 98.3 64 22 177/114 (135) 100 12/26/16 01:17 21 Intake and Output 12/26/16 12/26/16 12/27/16 08:00 16:00 00:00 Intake Total 600 ml Balance 600 ml Result Diagram: 12/26/16 0115 12/26/16 0115 Imaging Last 24 hours Impressions Chest X-Ray 12/26/16 0108 Signed Impressions: Service Date/Time: Monday, December 26, 2016 01:16 - CONCLUSION: Cardiomegaly. No acute cardiopulmonary disease. Christiano Harris MD Neck CT 12/26/16 0000 Signed Impressions: Service Date/Time: Monday, December 26, 2016 02:57 - CONCLUSION: 1. Findings of epiglottitis with supraglottic edema and significant narrowing of the glottic and supraglottic airway. The airway is potentially at risk. 2. There is no evidence of abscess but with retropharyngeal effusion Christiano Harris MD Objective Remarks GENERAL: Calm patient. SKIN: Warm and dry. HEAD: Normocephalic. EYES: No scleral icterus. No injection or drainage. NECK: Supple, trachea midline. Airway patent without stridor or high-grade obstruction. CARDIOVASCULAR: Regular rate and rhythm without murmurs, gallops, or rubs. No JVD. RESPIRATORY: Breath sounds equal bilaterally. No accessory muscle use. GASTROINTESTINAL: Abdomen soft, non-tender, nondistended. BS active. MUSCULOSKELETAL: No cyanosis, or edema. Well perfused. BACK: Nontender without obvious deformity. NEURO EXAM: O X 3, alert, comfortable. BONITA. Moves 4 limbs. A/P Assessment and Plan Epiglottitis - Decadron - Ceftriaxone - Vancomycin - Admit to ICU - O2 supplementation - Racemic epi 2.25% HIV - Continue home HAART medication - Infectious disease consultation for epiglottitis immunocompromised patient Asthma - DuoNeb scheduled and when necessary - IV steroid COPD - DuoNeb scheduled and when necessary Hypertension - Hold home hypertensive meds in the settings of acute infection - Resume when hemodynamically stable DVT GI prophylaxis - Teds SCDs - IV Pepcid - Subcutaneous heparin Overall impression: Airway is much improved after initial treatment. No signs of high grade obstruction. Ralph Rasheed MD Dec 26, 2016 07:21
--- NOTE | 2016-12-26 08:18 | EKG ---
Date Performed: 12/26/2016 Time Performed: 00:23:30 PTAGE: 41 years EKG: SINUS TACHYCARDIA POSSIBLE LEFT ATRIAL ENLARGEMENT ABNORMAL RHYTHM ECG PREVIOUS TRACING : 02/09/2016 10.18 No significant change from previous tracing noted. DOCTOR: Leighton Gilliland Interpretating Date/Time 12/26/2016 08:18:25
[2016-12-26] MEDS ORDERED: cloNIDine HCL 0.1 MG TAB PO PRN (08:30)
[2016-12-26] MEDS ORDERED: hydrALAZINE HCL 20 MG/ML VIAL IV PUSH PRN (08:30)
[2016-12-26] MEDS: RESP: ALBUTEROL 2.5 MG/IPRATROPIUM 0.5 MG NEB (SCH) INH ×3 (08:39→20:24)
[2016-12-26] MEDS: SODIUM CHLORIDE 0.9% FLUSH 10 ML FLUSH IV FLUSH SCH ×2 (09:00→20:59)
[2016-12-26] MEDS: RITONAVIR 100 MG TAB PO SCH ×2 (09:10→20:58)
[2016-12-26] MEDS: DARUNAVIR 800 MG TAB PO SCH (09:11)
[2016-12-26] MEDS: FAMOTIDINE 20 MG/2 ML VIAL IV PUSH SCH ×2 (09:11→20:59)
[2016-12-26] MEDS: DOCUSATE SODIUM 50 MG/SENNA 8.6 MG TAB PO SCH ×2 (09:11→20:58)
[2016-12-26] MEDS: SULFAMETHOXAZOLE-TRIMETHOPRIM DS 800-160 MG TAB PO SCH ×2 (09:11→20:58)
[2016-12-26] MEDS: EMTRICITABINE/TENOFOVIR 200 MG/300 MG TAB PO SCH (09:11)
[2016-12-26] MEDS: metroNIDAZOLE 500 MG TAB PO SCH ×4 (09:11→20:59)
[2016-12-26] MEDS: AZITHROMYCIN 250 MG TAB PO SCH (09:11)
[2016-12-26] MEDS: DOLUTEGRAVIR SODIUM 50 MG TAB PO SCH (09:11)
[2016-12-26] MEDS: HYDROCHLOROTHIAZIDE 25 MG TAB PO SCH (09:12)
[2016-12-26] MEDS: hydrALAZINE HCL 50 MG TAB PO SCH ×2 (09:12→16:54)
--- NOTE | 2016-12-26 13:43 | MB ---
cc: EDMUNDO TABOR M.D. DATE OF CONSULTATION: 12/26/2016 REASON FOR CONSULTATION 1. Angioedema. 2. Notification for possibility of emergency tracheostomy. HISTORY OF PRESENT ILLNESS Ms. Rodriguez is a 41-year-old -[place] female who [facility] complaining of a sensation that her throat was closing up. She was seen and evaluated by Dr. Kelsey Mae where she was worked up. She underwent a CT scan of the head and neck which demonstrated some adenopathy and some epiglottitis. She does have a history of HIV. She denies any new medications. She denies any recent shellfish ingestion. She was seen and evaluated by Dr. Mae who gave her some racemic epinephrine and some steroids and apparently she improved. A surgical consultation was requested by Anesthesia and Critical Care in case the patient needed an urgent tracheostomy. It should be noted the patient was not in any respiratory distress while she was in the emergency department. She was on room air according to Dr. Mae. Again, after racemic epinephrine and nebulizer she clinically improved. Apparently while she is in the emergency apartment the nursing staff reports that she was eating a Cinn[place] against their advice that she had smuggled in with her purse. She apparently was swallowing this just fine and had no problems with shortness of breath while she was eating the Cinnabon. PAST MEDICAL HISTORY 1. HIV. 2. Asthma. 3. COPD. 4. Hypertension. 5. Renal insufficiency. 6. Chronic neck pain. PAST SURGICAL HISTORY Tubal ligation. MEDICATIONS Her medication list is documented in the chart and is quite extensive. ALLERGIES 1. ACETAMINOPHEN. 2. BUPRENORPHINE. SOCIAL HISTORY She smokes, she drinks and she uses marijuana. FAMILY HISTORY Noncontributory. PHYSICAL EXAMINATION VITAL SIGNS: Temperature 98, pulse 70, blood pressure 180/90, respiratory rate 20. O2 saturation is 100% on room air. GENERAL: In general this is a pleasant obese -[place] female watching TV in the ICU, in no distress whatsoever. HEENT: Pupils are equal and react to light. Sclera white. Oropharynx is clear and moist. I do not see any significant edema in her oral airway. She is able to swallow quite fine on my exam. She has no wheezing. No coarse upper airway sounds. NECK: Supple, nontender. There is no significant swelling I can appreciate by physical exam. LUNGS: Clear to auscultation bilaterally. HEART: S1, S2. No murmur. ABDOMEN: Soft, nontender. EXTREMITIES: Free range of motion x4. NEUROLOGIC: She is alert and oriented x3. IMAGING CT scan shows epiglottitis with edema. No evidence of abscess. No evidence of significant adenopathy. IMPRESSION Upper airway edema and adenopathy of undetermined etiology. PLAN At this point the patient seems to be doing clinically well with medical treatment. I have advised the nursing staff in the ICU that if she becomes short of breath or has any problems breathing to please notify us immediately and we would consider emergent tracheostomy. At this point I think the patient is clinically stable and can be managed nonoperatively. MD PRESTON Chino/NEY /1:24 PM /1:36 PM
--- NOTE | 2016-12-26 13:43 | MB ---
cc: EDMUNDO TABOR M.D. DATE OF CONSULTATION: 12/26/2016 REASON FOR CONSULTATION 1. Angioedema. 2. Notification for possibility of emergency tracheostomy. HISTORY OF PRESENT ILLNESS Ms. Rodriguez is a 41-year-old -Iranian female who came to the emergency department [facility] the emergency room this morning complaining of a sensation that her throat was closing up. She was seen and evaluated by Dr. Kelsey Mae where she was worked up. She underwent a CT scan of the head and neck which demonstrated some adenopathy and some epiglottitis. She does have a history of HIV. She denies any new medications. She denies any recent shellfish ingestion. She was seen and evaluated by Dr. Mae who gave her some racemic epinephrine and some steroids and apparently she improved. A surgical consultation was requested by Anesthesia and Critical Care in case the patient needed an urgent tracheostomy. It should be noted the patient was not in any respiratory distress while she was in the emergency department. She was on room air according to Dr. Mae. Again, after racemic epinephrine and nebulizer she clinically improved. Apparently while she is in the emergency apartment the nursing staff reports that she was eating a Cinnabon against their advice that she had smuggled in with her purse. She apparently was swallowing this just fine and had no problems with shortness of breath while she was eating the Cinnabon. PAST MEDICAL HISTORY 1. HIV. 2. Asthma. 3. COPD. 4. Hypertension. 5. Renal insufficiency. 6. Chronic neck pain. PAST SURGICAL HISTORY Tubal ligation. MEDICATIONS Her medication list is documented in the chart and is quite extensive. ALLERGIES 1. ACETAMINOPHEN. 2. BUPRENORPHINE. SOCIAL HISTORY She smokes, she drinks and she uses marijuana. FAMILY HISTORY Noncontributory. PHYSICAL EXAMINATION VITAL SIGNS: Temperature 98, pulse 70, blood pressure 180/90, respiratory rate 20. O2 saturation is 100% on room air. GENERAL: In general this is a pleasant obese -Iranian female watching TV in the ICU, in no distress whatsoever. HEENT: Pupils are equal and react to light. Sclera white. Oropharynx is clear and moist. I do not see any significant edema in her oral airway. She is able to swallow quite fine on my exam. She has no wheezing. No coarse upper airway sounds. NECK: Supple, nontender. There is no significant swelling I can appreciate by physical exam. LUNGS: Clear to auscultation bilaterally. HEART: S1, S2. No murmur. ABDOMEN: Soft, nontender. EXTREMITIES: Free range of motion x4. NEUROLOGIC: She is alert and oriented x3. IMAGING CT scan shows epiglottitis with edema. No evidence of abscess. No evidence of significant adenopathy. IMPRESSION Upper airway edema and adenopathy of undetermined etiology. PLAN At this point the patient seems to be doing clinically well with medical treatment. I have advised the nursing staff in the ICU that if she becomes short of breath or has any problems breathing to please notify us immediately and we would consider emergent tracheostomy. At this point I think the patient is clinically stable and can be managed nonoperatively. MD PRESOTN Chino/NEY /1:24 PM /1:36 PM
--- NOTE | 2016-12-26 13:43 | MB ---
cc: EDMUNDO TABOR M.D. DATE OF CONSULTATION: 12/26/2016 REASON FOR CONSULTATION 1. Angioedema. 2. Notification for possibility of emergency tracheostomy. HISTORY OF PRESENT ILLNESS Ms. Rodriguez is a 41-year-old -Maltese female who came to the emergency department [facility] the emergency room this morning complaining of a sensation that her throat was closing up. She was seen and evaluated by Dr. Kelsey Mae where she was worked up. She underwent a CT scan of the head and neck which demonstrated some adenopathy and some epiglottitis. She does have a history of HIV. She denies any new medications. She denies any recent shellfish ingestion. She was seen and evaluated by Dr. Mae who gave her some racemic epinephrine and some steroids and apparently she improved. A surgical consultation was requested by Anesthesia and Critical Care in case the patient needed an urgent tracheostomy. It should be noted the patient was not in any respiratory distress while she was in the emergency department. She was on room air according to Dr. Mae. Again, after racemic epinephrine and nebulizer she clinically improved. Apparently while she is in the emergency apartment the nursing staff reports that she was eating a Cinnabon against their advice that she had smuggled in with her purse. She apparently was swallowing this just fine and had no problems with shortness of breath while she was eating the Cinnabon. PAST MEDICAL HISTORY 1. HIV. 2. Asthma. 3. COPD. 4. Hypertension. 5. Renal insufficiency. 6. Chronic neck pain. PAST SURGICAL HISTORY Tubal ligation. MEDICATIONS Her medication list is documented in the chart and is quite extensive. ALLERGIES 1. ACETAMINOPHEN. 2. BUPRENORPHINE. SOCIAL HISTORY She smokes, she drinks and she uses marijuana. FAMILY HISTORY Noncontributory. PHYSICAL EXAMINATION VITAL SIGNS: Temperature 98, pulse 70, blood pressure 180/90, respiratory rate 20. O2 saturation is 100% on room air. GENERAL: In general this is a pleasant obese -Maltese female watching TV in the ICU, in no distress whatsoever. HEENT: Pupils are equal and react to light. Sclera white. Oropharynx is clear and moist. I do not see any significant edema in her oral airway. She is able to swallow quite fine on my exam. She has no wheezing. No coarse upper airway sounds. NECK: Supple, nontender. There is no significant swelling I can appreciate by physical exam. LUNGS: Clear to auscultation bilaterally. HEART: S1, S2. No murmur. ABDOMEN: Soft, nontender. EXTREMITIES: Free range of motion x4. NEUROLOGIC: She is alert and oriented x3. IMAGING CT scan shows epiglottitis with edema. No evidence of abscess. No evidence of significant adenopathy. IMPRESSION Upper airway edema and adenopathy of undetermined etiology. PLAN At this point the patient seems to be doing clinically well with medical treatment. I have advised the nursing staff in the ICU that if she becomes short of breath or has any problems breathing to please notify us immediately and we would consider emergent tracheostomy. At this point I think the patient is clinically stable and can be managed nonoperatively. MD PRESTON Chino/NEY /1:24 PM /1:36 PM
--- NOTE | 2016-12-26 15:43 | PD.ID.CON ---
History of Present Illness Service ID Consult Requested By Reason for Consult Evaluation and Mment of Epiglottitis in HIV positive pt. Primary Care Physician Unknown Diagnoses: History of Present Illness is a 41 y/o AAF with PMHx significant for self reported history of HIV. Patient does not remember name of her ID doctor and was not forth coming with information. She was actually annoyed when I asked her name of ID physician in community. She was asking me what is the relevance to her current problem. I explained to her that the HIV is an infectious disease condition that affects her immune system and also has senior living chronic effects like accelerated CAD and this is important given her h/o chest pain. She brushed the CP history and said it is likely nothing. I then asked her last CD4 count, last Viral load and last date of follow up. She could not provide me any details and thinks it has been more than a week since last taken her HIV meds. She says she needs to find new ID physician but does not want to go to health dept. With this background, patient presents with a history of developing a sensation of her throat closing up approximately 2 hours prior to arrival. She reports earlier in the day prior to ER visit she noticed neck fullness and soreness. The patient reports additionally having constant left-sided chest pain associated with left upper quadrant abdominal pain that is been present since March. She reports that she has been seen in the emergency department for this in the past and no particular causes been able to be identified. The patient denies taking any new medications. When asked about bactrim she reports it is for UTI but not PCP prophylaxis. She does not know why she is on flagyl or azithro. The patient denies any new food exposures that she is aware of. The patient reports that she did take a Benadryl earlier today for the symptoms without any relief or improvement. She has a known history of asthma and COPD. She reports that she's had a cough with congestion since this morning. The CT of the neck done in the emergency department showed acute epiglottitis with supra-epiglottic edema. She is admitted to ICU for an airway close monitoring. Gen surgery has evaluated patient and non operative management was recommended with no need for emergent tracheostomy. ID was consulted for evaluation and Mment of Epiglottitis in a pt with HIV. Past Family Social History Allergies: Coded Allergies: buprenorphine (Unverified Allergy, Severe, 12/26/16) ITCHING, LIP SWELLING oxycodone (Unverified Allergy, Severe, Itching, 12/26/16) Past Medical History HIV, asthma, COPD, hypertension, chronic renal insufficiency, tobacco use, marijuana use according to the record, history of neck pain related to degenerative disc disease, history of peptic ulcer disease. Past Surgical History Tubal ligation Reported Medications Reported Meds & Active Scripts Active Flagyl (Metronidazole) 500 Mg Tab 500 Mg PO QID Zofran Odt (Ondansetron Odt) 4 Mg Tab 4 Mg SL Q6HR PRN Lortab (Hydrocodone-Acetaminophen) 5-325 Mg Tab 1 Tab PO Q6H PRN Truvada (Emtricitabine-Tenofovir Disoproxil Fumarate) 200-300 Mg Tab 1 Tab PO DAILY Prezista (Darunavir) 800 Mg Tab 800 Mg PO DAILY Tivicay (Dolutegravir Sodium) 50 Mg Tab 50 Mg PO DAILY Lisinopril 20 Mg Tab 20 Mg PO DAILY Diclofenac Sodium DR (Diclofenac Sodium) 75 Mg Tabdr 75 Mg PO BID PRN Bactrim DS (Sulfamethoxazole-Trimethoprim) 800-160 Mg Tab 1 Tab PO BID 7 Days Reported Hydrochlorothiazide 25 Mg Tab 25 Mg PO DAILY Azithromycin 250 Mg Tab 250 Mg PO DAILY Proair Respiclick Inh (Albuterol Sulfate) 90 Mcg/Act Aerp 1 Puff INH Q4H PRN Norvir (Ritonavir) 100 Mg Cap 300 Mg PO BID Active Ordered Medications Current Medications Medications (Trade) Dose Ordered Sig/Fiona Route Start Time Stop Time Status Last Admin (Pepcid Inj) 20 mg ONCE IV PUSH 12/26/16 01:15 12/26/16 01:30 (Zithromax) 250 mg DAILY PO 12/26/16 09:00 12/26/16 09:11 (Prezista) 800 mg DAILY PO 12/26/16 09:00 12/26/16 09:11 (Voltaren Dr) 75 mg BID PRN PO 12/26/16 04:45 (Truvada 200-300 Mg) 1 tab DAILY PO 12/26/16 09:00 12/26/16 09:11 (Nicasio 5-325 Mg) 1 tab Q6H PRN PO 12/26/16 04:45 (Flagyl) 500 mg QID PO 12/26/16 09:00 12/26/16 16:54 (Norvir) 300 mg BID PO 12/26/16 09:00 12/26/16 09:10 (Bactrim Ds 800-160 Mg) 1 tab BID PO 12/26/16 09:00 12/26/16 09:11 (Proair Hfa Inh) 1 puff Q4H PRN INH 12/26/16 05:15 Sodium Chloride 1,000 ml @ 50 mls/hr Q20H IV 12/26/16 04:32 12/26/16 05:06 (NS Flush) 2 ml UNSCH PRN IV FLUSH 12/26/16 04:45 (NS Flush) 2 ml BID IV FLUSH 12/26/16 09:00 12/26/16 09:00 (Pepcid Inj) 20 mg Q12HR IV PUSH 12/26/16 09:00 12/26/16 09:11 (Zofran Inj) 4 mg Q6H PRN IV PUSH 12/26/16 04:45 (Duoneb Neb) 1 ampule Q6HR NEB INH 12/26/16 10:00 12/26/16 16:29 (Duoneb Neb) 1 ampule Q2HR NEB PRN INH 12/26/16 04:45 (Heparin Inj) 5,000 units Q8H SQ 12/26/16 05:00 12/26/16 11:55 Miscellaneous Information 1 Q361D XX 12/26/16 04:45 (Chlorhexidine 2% Cloth) 3 pack Taper DAILY@04 TOP 12/27/16 04:00 12/23/17 03:59 (Chlorhexidine 2% Cloth) 3 pack UNSCH PRN TOP 12/26/16 04:45 (Jaylin-Colace) 1 tab BID PO 12/26/16 09:00 12/26/16 09:11 (Milk Of Magnesia Liq) 30 ml Q12H PRN PO 12/26/16 04:45 (Senokot) 17.2 mg Q12H PRN PO 12/26/16 04:45 (Dulcolax Supp) 10 mg DAILY PRN RECTAL 12/26/16 04:45 (Lactulose Liq) 30 ml DAILY PRN PO 12/26/16 04:45 Ceftriaxone Sodium 1000 mg/ Sodium Chloride 100 ml @ 200 mls/hr Q12H IV 12/26/16 05:00 12/26/16 16:53 Pharmacy Profile Note 0 ml @ 0 mls/hr UNSCH OTHER 12/26/16 04:45 (Decadron Inj) 4 mg Q6HR IV PUSH 12/26/16 06:00 12/26/16 16:53 (Tylenol) 650 mg Q6H PRN PO 12/26/16 05:30 (Racepinephrine 2.25% Neb) 0.5 ml Q1HR NEB PRN NEB 12/26/16 06:45 (Hydrodiuril) 25 mg DAILY PO 12/26/16 09:00 12/26/16 09:12 (Apresoline) 50 mg Q8H PO 12/26/16 09:00 12/26/16 16:54 (Apresoline Inj) 20 mg Q2H PRN IV PUSH 12/26/16 08:30 (Catapres) 0.1 mg Q6H PRN PO 12/26/16 08:30 Vancomycin HCl 2000 mg/Sodium Chloride 520 ml @ 250 mls/hr Q12H IV 12/26/16 18:00 Miscellaneous Information SPECIFIC LAB TO BE GISELA... ONCE ONCE .XX 12/27/16 17:45 12/27/16 17:46 Family History No family history significant for early coronary artery disease Social History Smokes medical marijuana Smokes tobacco Denies alcohol or illicit drug abuse Physical Exam Vital Signs Vital Signs Date Time Temp Pulse Resp B/P (MAP) Pulse Ox O2 Delivery O2 Flow Rate FiO2 12/26/16 14:00 90 12/26/16 12:00 98.2 95 24 148/93 (111) 100 12/26/16 12:00 95 12/26/16 10:00 93 12/26/16 08:39 100 12/26/16 08:00 72 12/26/16 08:00 98.7 72 24 187/97 (127) 98 12/26/16 07:00 99 Room Air 12/26/16 06:30 Room Air 12/26/16 06:30 98.3 64 22 177/114 (135) 100 12/26/16 06:09 68 16 172/99 (123) 100 12/26/16 05:26 71 16 179/90 (119) 100 Room Air 12/26/16 03:51 73 16 159/81 (107) 100 Room Air 12/26/16 01:29 98 169/109 12/26/16 01:17 100 21 12/26/16 01:01 106 18 178/111 (133) 100 Room Air 12/26/16 00:55 18 100 Room Air 12/26/16 00:46 97.6 110 20 180/109 (132) 100 Physical Exam GENERAL: This is a well-nourished, well-developed patient, in no apparent distress. SKIN: No rashes, ecchymoses or lesions. Cool and dry. HEAD: Atraumatic. Normocephalic. No temporal or scalp tenderness. EYES: Pupils equal round and reactive. Extraocular motions intact. No scleral icterus. No injection or drainage. ENT: Nose without bleeding, purulent drainage or septal hematoma. Throat without erythema, tonsillar hypertrophy or exudate. Uvula midline. Airway patent. NECK: Trachea midline. No JVD or lymphadenopathy. Supple, nontender, no meningeal signs. Large neck, small airway. CARDIOVASCULAR: Regular rate and rhythm without murmurs, gallops, or rubs. RESPIRATORY: Clear to auscultation. Breath sounds equal bilaterally. No wheezes , rales, or rhonchi. GASTROINTESTINAL: Abdomen soft, non-tender, nondistended. No hepato-splenomegaly , or palpable masses. No guarding. MUSCULOSKELETAL: Extremities without clubbing, cyanosis, or edema. No joint tenderness, effusion, or edema noted. No calf tenderness. Negative Homans sign bilaterally. NEUROLOGICAL: Awake and alert. Cranial nerves II through XII intact. Motor and sensory grossly within normal limits. Five out of 5 muscle strength in all muscle groups. Normal speech. Psych: not very forth coming with info but overall cooperative, flat affect but denies Suicidal ideations. IV line sites with no e.o infection. Laboratory Laboratory Tests Test 12/26/16 01:15 12/26/16 03:40 12/26/16 06:25 White Blood Count 4.5 Red Blood Count 4.00 Hemoglobin 12.1 Hematocrit 36.4 Mean Corpuscular Volume 90.8 Mean Corpuscular Hemoglobin 30.1 Mean Corpuscular Hemoglobin Concent 33.2 Red Cell Distribution Width 13.8 Platelet Count 263 Mean Platelet Volume 8.7 Neutrophils (%) (Auto) 42.3 Lymphocytes (%) (Auto) 45.9 Monocytes (%) (Auto) 10.1 Eosinophils (%) (Auto) 0.9 Basophils (%) (Auto) 0.8 Neutrophils # (Auto) 1.9 Lymphocytes # (Auto) 2.1 Monocytes # (Auto) 0.5 Eosinophils # (Auto) 0.0 Basophils # (Auto) 0.0 CBC Comment DIFF FINAL Differential Comment Prothrombin Time 10.1 Prothromb Time International Ratio 0.9 Activated Partial Thromboplast Time 24.0 Blood Urea Nitrogen 13 Creatinine 1.04 Random Glucose 85 Total Protein 9.3 Albumin 3.4 Calcium Level 8.5 Magnesium Level 1.9 Alkaline Phosphatase 86 Aspartate Amino Transf (AST/SGOT) 30 Alanine Aminotransferase (ALT/SGPT) 24 Total Bilirubin 0.1 Sodium Level 139 Potassium Level 4.1 Chloride Level 107 Carbon Dioxide Level 22.1 Anion Gap 10 Estimat Glomerular Filtration Rate 71 Total Creatine Kinase 136 Creatine Kinase MB 1.3 Troponin I LESS THAN 0.02 B-Type Natriuretic Peptide 44 Lipase 129 Thyroid Stimulating Hormone 3rd Gen 0.998 Ethyl Alcohol Level LESS THAN 3 Urine Color YELLOW Urine Turbidity HAZY Urine pH 6.0 Urine Specific [place] 1.014 Urine Protein TRACE Urine Glucose (UA) NEG Urine Ketones NEG Urine Occult Blood SMALL Urine Nitrite NEG Urine Bilirubin NEG Urine Urobilinogen LESS THAN 2.0 Urine Leukocyte Esterase TRACE Urine RBC LESS THAN 1 Urine WBC 1 Urine Squamous Epithelial Cells 6 Urine Bacteria RARE Urine Hyaline Casts 4 Urine Mucus FEW Microscopic Urinalysis Comment CULT NOT INDICATED Urine Opiates Screen NEG Urine Barbiturates Screen NEG Urine Amphetamines Screen NEG Urine Benzodiazepines Screen NEG Urine Cocaine Screen NEG Urine Cannabinoids Screen POS Nasal Screen MRSA (PCR) MRSA NOT DETECTED Date/Time Source Procedure Growth Status 12/26/16 04:50 Blood Peripheral Aerobic Blood Culture Pending Received 12/26/16 04:50 Blood Peripheral Anaerobic Blood Culture Pending Received Result Diagram: 12/26/1611412/26/16114 Imaging Last Impressions Chest X-Ray 12/26/16 0108 Signed Impressions: Service Date/Time: Monday, December 26, 2016 01:16 - CONCLUSION: Cardiomegaly. No acute cardiopulmonary disease. Christiano Harris MD Neck CT 12/26/16 0000 Signed Impressions: Service Date/Time: Monday, December 26, 2016 02:57 - CONCLUSION: 1. Findings of epiglottitis with supraglottic edema and significant narrowing of the glottic and supraglottic airway. The airway is potentially at risk. 2. There is no evidence of abscess but with retropharyngeal effusion Christiano Harris MD Assessment and Plan Assessment and Plan Acute epiglottitis (H.influ,Strep, Staph or MRSA likely causative organisms. Lisinopril can cause angioedema and on hold. Immune compromised host HIV on HAART ? compliance. Multiple antibiotics and antivirals prior to admission. recs continue ceftriaxone IV Continue Vanco IV (target 10-15) Follow cultures Follow clinically. Check CD4 Check VL Obtain records from her ID physician in community for assessment of appropriateness of HIV regimen in hospital. d/w pt at length, answered all her questions. Mayela Pittman MD Dec 26, 2016 15:43
[2016-12-26] MEDS: VANCOMYCIN INJ 2,000 MG in SODIUM CHLORID 0.9% 500 ML INJ 500 ML IV SCH (18:00)
[2016-12-27] VITALS (8 sets, daily range): BP systolic 141–169; BP diastolic 78–94; PULSE 89–112; RESP 20–26; TEMP 98.3–98.7; O2SAT 98–100
[2016-12-27] MEDS: hydrALAZINE HCL 50 MG TAB PO SCH ×3 (00:44→16:18)
[2016-12-27] MEDS: SODIUM CHLOR 0.9% 1000 ML INJ 1,000 ML IV SCH (01:06)
[2016-12-27] MEDS: RESP: ALBUTEROL 2.5 MG/IPRATROPIUM 0.5 MG NEB (SCH) INH ×3 (03:22→15:12)
[2016-12-27] MEDS ORDERED: CHLORHEXIDINE GLUCONATE 2 % 1 PACK (2 CLOTHS) TOP SCH (04:00)
[2016-12-27 05:11] LABS: AUTOMATED NEUTROPHIL # 14.6 TH/MM3 (1.8-7.7); BASOPHIL % 0.1 % (0.0-2.0); HEMATOCRIT 32.2 % (35.0-46.0); HEMOGLOBIN 10.4 GM/DL (11.6-15.3); LYMPH % 5.2 % (9.0-44.0); LYMPHOCYTE # 0.8 TH/MM3 (1.0-4.8); MEAN CORPUSCULAR HEMOGLOBIN 29.5 PG (27.0-34.0); MEAN CORPUSCULAR HGB CONC 32.4 % (32.0-36.0); MEAN PLATELET VOLUME 8.7 FL (7.0-11.0); MONO % 1.2 % (0.0-8.0); MONOCYTE # 0.2 TH/MM3 (0-0.9); NEUT % 93.5 % (16.0-70.0); PLATELET COUNT 242 TH/MM3 (150-450); RED BLOOD COUNT 3.54 MIL/MM3 (4.00-5.30); RED CELL DISTRIBUTION WIDTH 13.9 % (11.6-17.2); WHITE BLOOD COUNT 15.7 TH/MM3 (4.0-11.0)
[2016-12-27 05:45] LABS: ALBUMIN 3.1 GM/DL (3.4-5.0); ALKALINE PHOSPHATASE 77 U/L (45-117); ALT (GPT) 17 U/L (10-53); AST (GOT) 16 U/L (15-37); BICARBONATE 18.4 MEQ/L (21.0-32.0); BLOOD UREA NITROGEN 15 MG/DL (7-18); CALCIUM 8.8 MG/DL (8.5-10.1); CHLORIDE 106 MEQ/L (98-107); CREATININE 1.05 MG/DL (0.50-1.00); GLOMERULAR FILTRATION RATE 70 ML/MIN (>89); GLUCOSE,RANDOM 151 MG/DL (74-106); PHOSPHORUS 1.8 MG/DL (2.5-4.9); SODIUM (NA) 137 MEQ/L (136-145); TOTAL BILIRUBIN ADULT 0.1 MG/DL (0.2-1.0); TOTAL PROTEIN 8.5 GM/DL (6.4-8.2)
[2016-12-27] MEDS: VANCOMYCIN INJ 2,000 MG in SODIUM CHLORID 0.9% 500 ML INJ 500 ML IV SCH (05:49)
[2016-12-27] MEDS: cefTRIAXone INJ 1,000 MG in SODIUM CHLORIDE 0.9% INJ 100 ML IV SCH ×2 (05:50→16:18)
[2016-12-27] MEDS: HEPARIN SODIUM - SQ 10,000 UNITS/ML VIAL SQ SCH ×2 (05:51→11:15)
[2016-12-27] MEDS: DEXAMETHASONE SOD PHOS 4 MG/ML VIAL IV PUSH SCH ×2 (05:51→11:15)
[2016-12-27] MEDS: SODIUM CHLORIDE 0.9% FLUSH 10 ML FLUSH IV FLUSH SCH (07:33)
[2016-12-27] MEDS: DOCUSATE SODIUM 50 MG/SENNA 8.6 MG TAB PO SCH ×2 (07:33→07:52)
[2016-12-27] MEDS: EMTRICITABINE/TENOFOVIR 200 MG/300 MG TAB PO SCH (07:50)
[2016-12-27] MEDS: DARUNAVIR 800 MG TAB PO SCH (07:50)
[2016-12-27] MEDS: FAMOTIDINE 20 MG/2 ML VIAL IV PUSH SCH (07:51)
[2016-12-27] MEDS: RITONAVIR 100 MG TAB PO SCH (07:51)
[2016-12-27] MEDS: SULFAMETHOXAZOLE-TRIMETHOPRIM DS 800-160 MG TAB PO SCH (07:51)
[2016-12-27] MEDS: AZITHROMYCIN 250 MG TAB PO SCH (07:51)
[2016-12-27] MEDS: metroNIDAZOLE 500 MG TAB PO SCH ×2 (07:52→11:16)
[2016-12-27] MEDS: DOLUTEGRAVIR SODIUM 50 MG TAB PO SCH (07:52)
[2016-12-27] MEDS: HYDROCHLOROTHIAZIDE 25 MG TAB PO SCH (07:52)
[2016-12-27 09:01] LABS: HEPATITIS A AB IGM NEGATIVE (NEGATIVE); HEPATITIS B SURFACE ANTIGEN NEGATIVE (NEGATIVE); HEPATITIS C AB IgG NEGATIVE (NEGATIVE)
--- NOTE | 2016-12-27 10:29 | HHI.PR ---
Subjective Subjective Notes Resting in bed Doesn't want to talk much Normal phonation No issues breathing Objective Vitals/I&O Vital Signs Date Time Temp Pulse Resp B/P (MAP) Pulse Ox O2 Delivery O2 Flow Rate FiO2 12/27/16 08:13 98 21 12/27/16 08:00 98.3 94 23 141/78 (99) 12/27/16 07:00 Room Air Labs Laboratory Tests Test 12/26/16 21:56 12/27/16 04:41 C-Reactive Protein LESS THAN 0.29 Hepatitis A IgM Antibody NEGATIVE Hepatitis B Surface Antigen NEGATIVE Hepatitis B Core IgM Antibody NEGATIVE Hepatitis C Antibody NEGATIVE Monoscreen NEG White Blood Count 15.7 Red Blood Count 3.54 Hemoglobin 10.4 Hematocrit 32.2 Mean Corpuscular Volume 91.0 Mean Corpuscular Hemoglobin 29.5 Mean Corpuscular Hemoglobin Concent 32.4 Red Cell Distribution Width 13.9 Platelet Count 242 Mean Platelet Volume 8.7 Neutrophils (%) (Auto) 93.5 Lymphocytes (%) (Auto) 5.2 Monocytes (%) (Auto) 1.2 Eosinophils (%) (Auto) 0.0 Basophils (%) (Auto) 0.1 Neutrophils # (Auto) 14.6 Lymphocytes # (Auto) 0.8 Monocytes # (Auto) 0.2 Eosinophils # (Auto) 0.0 Basophils # (Auto) 0.0 CBC Comment DIFF FINAL Differential Comment Blood Urea Nitrogen 15 Creatinine 1.05 Random Glucose 151 Total Protein 8.5 Albumin 3.1 Calcium Level 8.8 Phosphorus Level 1.8 Magnesium Level 2.0 Alkaline Phosphatase 77 Aspartate Amino Transf (AST/SGOT) 16 Alanine Aminotransferase (ALT/SGPT) 17 Total Bilirubin 0.1 Sodium Level 137 Potassium Level 3.0 Chloride Level 106 Carbon Dioxide Level 18.4 Anion Gap 13 Estimat Glomerular Filtration Rate 70 Date/Time Source Procedure Growth Status 12/26/16 04:50 Blood Peripheral Aerobic Blood Culture Pending Received 12/26/16 04:50 Blood Peripheral Anaerobic Blood Culture Pending Received Cardiovascular: Regular Lungs: Clear Abdomen: Non-distended, Non-tender Extremities: No edema A/P Assessment and Plan 41 year old female with angioedema -Tolerating regular diet without any issues -on RA; no respiratory issues or distress overnight -No acute GS issues at this time; Please call if needed -Discussed with RN Dianelys Seen on rounds with LOREE , tolerating diet, no respiratory issues DW Dr Lyon - no need for airway intervention will sign off, please call if needed EDMUNDO TABOR MD FACS Kaitlyn Perez Dec 27, 2016 10:29 Edmundo Tabor MD Dec 28, 2016 20:22
--- NOTE | 2016-12-27 10:53 | HHI.PR ---
Subjective Remarks resting comfortably with no distress. no sob. no fever. d/w the RN and no acute issues over night. Objective Vitals Vital Signs Date Time Temp Pulse Resp B/P (MAP) Pulse Ox O2 Delivery O2 Flow Rate FiO2 12/27/16 08:13 98 21 12/27/16 08:00 98.3 94 23 141/78 (99) 100 12/27/16 08:00 94 12/27/16 07:00 100 Room Air 12/27/16 06:00 112 12/27/16 04:00 100 12/27/16 04:00 98.6 100 26 169/86 (113) 100 12/27/16 02:00 98 12/27/16 00:00 89 12/27/16 00:00 98.7 89 26 156/86 (109) 100 12/26/16 22:00 114 12/26/16 20:25 100 21 12/26/16 20:00 101 12/26/16 20:00 98.7 101 24 142/93 (109) 100 12/26/16 19:00 100 Room Air 21 12/26/16 18:00 75 12/26/16 16:00 75 12/26/16 16:00 98.7 75 20 168/85 (112) 100 12/26/16 14:00 90 12/26/16 12:00 98.2 95 24 148/93 (111) 100 12/26/16 12:00 95 I/O 12/26/16 12/26/16 12/26/16 12/27/16 12/27/16 12/27/16 07:00 15:00 23:00 07:00 15:00 23:00 Intake Total 1120 ml 480 ml 1000 ml Balance 1120 ml 480 ml 1000 ml Intake Oral 480 ml IV Total 1120 ml 1000 ml # Voids 2 3 # Bowel Movements 0 0 Result Diagram: 12/27/1644012/27/16440 Imaging Last Impressions Chest X-Ray 12/26/16 0108 Signed Impressions: Service Date/Time: Monday, December 26, 2016 01:16 - CONCLUSION: Cardiomegaly. No acute cardiopulmonary disease. Christiano Harris MD Neck CT 12/26/16 0000 Signed Impressions: Service Date/Time: Monday, December 26, 2016 02:57 - CONCLUSION: 1. Findings of epiglottitis with supraglottic edema and significant narrowing of the glottic and supraglottic airway. The airway is potentially at risk. 2. There is no evidence of abscess but with retropharyngeal effusion Christiano Harris MD Objective Remarks GENERAL: This is a well-nourished, well-developed patient, in no apparent distress. CARDIOVASCULAR: Regular rate and regular rhythm without murmurs, gallops, or rubs. RESPIRATORY: Clear to auscultation. Breath sounds equal bilaterally. No wheezes , rales, or rhonchi. GASTROINTESTINAL: Abdomen soft, non-tender, nondistended. Normal, active bowel sounds MUSCULOSKELETAL: Extremities without clubbing, cyanosis, or edema. NEURO: Alert & Oriented x4 to person, place, time, situation. Moves all ext x4 Medications and IVs Current Medications Methylprednisolone Sodium Succinate (SoluMEDROL INJ) 125 mg ONCE ONCE IV PUSH Last administered on 12/26/16 01:29; Start 12/26/16 at 01:15; Stop 12/26/16 at 01:16; Status DC Diphenhydramine HCl (Benadryl Inj) 25 mg ONCE ONCE IV PUSH Last administered on 12/26/16 01:30; Start 12/26/16 at 01:15; Stop 12/26/16 at 01:16; Status DC Famotidine (Pepcid Inj) 20 mg ONCE IV PUSH Last administered on 12/26/16 01:30 ; Start 12/26/16 at 01:15 Epinephrine HCl (Adrenalin (1:1000) Inj) 0.3 mg ONCE ONCE IM Last administered on 12/26/16 01:29; Start 12/26/16 at 01:15; Stop 12/26/16 at 01:16 ; Status DC Sodium Chloride 500 ml @ 500 mls/hr BOLUS ONCE IV Last administered on 01:15; Start 12/26/16 at 01:15; Stop 12/26/16 at 02:14; Status DC Albuterol/ Ipratropium (Duoneb Neb) 1 ampule ONCE ONCE NEB Last administered on 12/26/16 01:15; Start 12/26/16 at 01:15; Stop 12/26/16 at 01:16; Status DC Albuterol/ Ipratropium (Duoneb Neb) 1 ampule ONCE ONCE NEB Last administered on 12/26/16 02:36; Start 12/26/16 at 02:45; Stop 12/26/16 at 02:46; Status DC Iohexol (Omnipaque 350 Inj) 70 ml STK-MED ONCE IVCONTRAST Last administered on 12/26/16 02:56; Start 12/26/16 at 02:56; Stop 12/26/16 at 02:57; Status DC Epinephrine HCl (Adrenalin (1:1000) Inj) 0.3 mg ONCE ONCE IM ; Start 12/26/16 at 03:45; Stop 12/26/16 at 03:45; Status DC Racepinephrine (Racepinephrine 2.25% Neb) 0.5 ml ONCE ONCE NEB Last administered on 12/26/16 03:47; Start 12/26/16 at 03:45; Stop 12/26/16 at 03:46 ; Status DC Azithromycin (Zithromax) 250 mg DAILY PO Last administered on 12/27/16 07:51; Start 12/26/16 at 09:00 Darunavir (Prezista) 800 mg DAILY PO Last administered on 12/27/16 07:50; Start 12/26/16 at 09:00 Diclofenac Sodium (Voltaren Dr) 75 mg BID PRN PO PAIN SCALE 1 TO 10 Last administered on 12/27/16 03:25; Start 12/26/16 at 04:45 Emtricitabine/ Tenofovir (Truvada 200-300 Mg) 1 tab DAILY PO Last administered on 12/27/16 07:50; Start 12/26/16 at 09:00 Acetaminophen/ Hydrocodone Bitart ([place] 5-325 Mg) 1 tab Q6H PRN PO SEE LABEL COMMENTS; Start 12/26/16 at 04:45 Metronidazole (Flagyl) 500 mg QID PO Last administered on 12/27/16 07:52; Start 12/26/16 at 09:00 Ritonavir (Norvir) 300 mg BID PO Last administered on 12/27/16 07:51; Start 12/26/16 at 09:00 Trimethoprim/ Sulfamethoxazole (Bactrim Ds 800-160 Mg) 1 tab BID PO Last administered on 12/27/16 07:51; Start 12/26/16 at 09:00 Albuterol Sulfate (Proair Hfa Inh) 1 puff Q4H PRN INH SHORTNESS OF BREATH; Start 12/26/16 at 05:15 Sodium Chloride 1,000 ml @ 50 mls/hr Q20H IV Last administered on 12/27/16 01 :06; Start 12/26/16 at 04:32 Sodium Chloride (NS Flush) 2 ml UNSCH PRN IV FLUSH FLUSH AFTER USING IV ACCESS ; Start 12/26/16 at 04:45 Sodium Chloride (NS Flush) 2 ml BID IV FLUSH Last administered on 12/27/16 07: 33; Start 12/26/16 at 09:00 Acetaminophen (Tylenol) 650 mg Q6H PRN PO FEVER >101F; Start 12/26/16 at 04:45 ; Status Cancel Famotidine (Pepcid Inj) 20 mg Q12HR IV PUSH Last administered on 12/27/16 07: 51; Start 12/26/16 at 09:00 Ondansetron HCl (Zofran Inj) 4 mg Q6H PRN IV PUSH NAUSEA OR VOMITING; Start at 04:45 Albuterol/ Ipratropium (Duoneb Neb) 1 ampule Q6HR NEB INH Last administered on 12/27/16 08:12; Start 12/26/16 at 10:00 Albuterol/ Ipratropium (Duoneb Neb) 1 ampule Q2HR NEB PRN INH WHEEZING; Start 12/26/16 at 04:45 Heparin Sodium (Porcine) (Heparin Inj) 5,000 units Q8H SQ Last administered on 12/27/16 05:51; Start 12/26/16 at 05:00 Miscellaneous Information 1 Q361D XX ; Start 12/26/16 at 04:45 Chlorhexidine Gluconate (Chlorhexidine 2% Cloth) 3 pack Taper DAILY@04 TOP Last administered on 12/27/16 04:00; Start 12/27/16 at 04:00; Stop 12/23/17 at 03:59 Chlorhexidine Gluconate (Chlorhexidine 2% Cloth) 3 pack UNSCH PRN TOP HYGIENIC CARE; Start 12/26/16 at 04:45 Senna/Docusate Sodium (Jaylin-Colace) 1 tab BID PO Last administered on 07:52; Start 12/26/16 at 09:00 Magnesium Hydroxide (Milk Of Magnesia Liq) 30 ml Q12H PRN PO Mild constipation ; Start 12/26/16 at 04:45 Sennosides (Senokot) 17.2 mg Q12H PRN PO Moderate constipation; Start 12/26/16 at 04:45 Bisacodyl (Dulcolax Supp) 10 mg DAILY PRN RECTAL SEVERE CONSITIPATION; Start 12/26/16 at 04:45 Lactulose (Lactulose Liq) 30 ml DAILY PRN PO SEVERE CONSITIPATION; Start at 04:45 Ceftriaxone Sodium 1000 mg/ Sodium Chloride 100 ml @ 200 mls/hr Q12H IV Last administered on 12/27/16 05:50; Start 12/26/16 at 05:00 Pharmacy Profile Note 0 ml @ 0 mls/hr UNSCH OTHER ; Start 12/26/16 at 04:45 Vancomycin HCl 1000 mg/Sodium Chloride 250 ml @ 250 mls/hr ONCE ONCE IV ; Start 12/26/16 at 04:45; Stop 12/26/16 at 05:44; Status Cancel Dexamethasone Sodium Phosphate (Decadron Inj) 4 mg Q6HR IV PUSH Last administered on 12/27/16 05:51; Start 12/26/16 at 06:00 Vancomycin HCl 2000 mg/Sodium Chloride 520 ml @ 250 mls/hr ONCE ONCE IV Last administered on 12/26/16 05:44; Start 12/26/16 at 06:00; Stop 12/26/16 at 08:04 ; Status DC Acetaminophen (Tylenol) 650 mg Q6H PRN PO FEVER >101F; Start 12/26/16 at 05:30 Racepinephrine (Racepinephrine 2.25% Neb) 0.5 ml Q1HR NEB PRN NEB Stridor; Start 12/26/16 at 06:45 Hydrochlorothiazide (Hydrodiuril) 25 mg DAILY PO Last administered on 07:52; Start 12/26/16 at 09:00 Hydralazine HCl (Apresoline) 50 mg Q8H PO Last administered on 12/27/16 07:50 ; Start 12/26/16 at 09:00 Hydralazine HCl (Apresoline Inj) 20 mg Q2H PRN IV PUSH SBP > 160, DBP > 100; Start 12/26/16 at 08:30 Clonidine (Catapres) 0.1 mg Q6H PRN PO SBP > 170; Start 12/26/16 at 08:30 Vancomycin HCl 2000 mg/Sodium Chloride 520 ml @ 250 mls/hr Q12H IV Last administered on 12/27/16t 05:49; Start 12/26/16 at 18:00 Miscellaneous Information SPECIFIC LAB TO BE ... ONCE ONCE .XX ; Start 12/27 at 17:45; Stop 12/27/16 at 17:46 A/P Assessment and Plan A/P Epiglottitis - Decadron - Ceftriaxone - Vancomycin - O2 supplementation - surgery follow-up appreciated. -ENT/ ID consulted. HIV - Continue home HAART medication - Infectious disease consult appreciated. -CD4 count pending. Asthma - DuoNeb scheduled and when necessary - IV steroid COPD - continue neb treatment. Hypertension - will resume BP meds soon. DVT GI prophylaxis - Teds SCDs - IV Pepcid - Subcutaneous heparin for transfer to floor. d/w the RN. Brandon Jacobson MD Dec 27, 2016 10:53
[2016-12-27] MEDS ORDERED: POTASSIUM CHLORIDE 10 MEQ CONTROLLED RELEASE TAB PO ONE (11:15)
--- NOTE | 2016-12-27 14:53 | HHI.IDPN ---
Subjective Subjective Remarks is a 41 y/o AAF with PMHx significant for self reported history of HIV. Patient does not remember name of her ID doctor and was not forth coming with information. She was actually annoyed when I asked her name of ID physician in community. She was asking me what is the relevance to her current problem. I explained to her that the HIV is an infectious disease condition that affects her immune system and also has long term care administrator chronic effects like accelerated CAD and this is important given her h/o chest pain. She brushed the CP history and said it is likely nothing. I then asked her last CD4 count, last Viral load and last date of follow up. She could not provide me any details and thinks it has been more than a week since last taken her HIV meds. She says she needs to find new ID physician but does not want to go to health dept. With this background, patient presents with a history of developing a sensation of her throat closing up approximately 2 hours prior to arrival. She reports earlier in the day prior to ER visit she noticed neck fullness and soreness. The patient reports additionally having constant left-sided chest pain associated with left upper quadrant abdominal pain that is been present since March. She reports that she has been seen in the emergency department for this in the past and no particular causes been able to be identified. The patient denies taking any new medications. When asked about bactrim she reports it is for UTI but not PCP prophylaxis. She does not know why she is on flagyl or azithro. The patient denies any new food exposures that she is aware of. The patient reports that she did take a Benadryl earlier today for the symptoms without any relief or improvement. She has a known history of asthma and COPD. She reports that she's had a cough with congestion since this morning. The CT of the neck done in the emergency department showed acute epiglottitis with supra-epiglottic edema. She is admitted to ICU for an airway close monitoring. Gen surgery has evaluated patient and non operative management was recommended with no need for emergent tracheostomy. ID was consulted for evaluation and Mment of Epiglottitis in a pt with HIV. Overnight events reviewed No fevers no rash No diarrhea Antibiotics Ceftriaxone IV Vanco IV Lines Line sites with no e.o infection Past Medical History reviewed Allergies: Coded Allergies: buprenorphine (Unverified Allergy, Severe, 12/26/16) ITCHING, LIP SWELLING oxycodone (Unverified Allergy, Severe, Itching, 12/26/16) Objective . Vital Signs Date Time Temp Pulse Resp B/P (MAP) Pulse Ox O2 Delivery O2 Flow Rate FiO2 12/27/16 12:00 110 12/27/16 12:00 98.4 110 26 146/94 (111) 100 12/27/16 08:13 98 21 12/27/16 08:00 98.3 94 23 141/78 (99) 100 12/27/16 08:00 94 12/27/16 07:00 100 Room Air 12/27/16 06:00 112 12/27/16 04:00 100 12/27/16 04:00 98.6 100 26 169/86 (113) 100 12/27/16 02:00 98 12/27/16 00:00 89 12/27/16 00:00 98.7 89 26 156/86 (109) 100 12/26/16 22:00 114 12/26/16 20:25 100 21 12/26/16 20:00 101 12/26/16 20:00 98.7 101 24 142/93 (109) 100 12/26/16 19:00 100 Room Air 21 12/26/16 18:00 75 12/26/16 16:00 75 12/26/16 16:00 98.7 75 20 168/85 (112) 100 . Laboratory Tests Test 12/26/16 01:15 12/27/16 04:41 White Blood Count 4.5 TH/MM3 15.7 TH/MM3 Red Blood Count 4.00 MIL/MM3 3.54 MIL/MM3 Hemoglobin 12.1 GM/DL 10.4 GM/DL Hematocrit 36.4 % 32.2 % Mean Corpuscular Volume 90.8 FL 91.0 FL Mean Corpuscular Hemoglobin 30.1 PG 29.5 PG Mean Corpuscular Hemoglobin Concent 33.2 % 32.4 % Red Cell Distribution Width 13.8 % 13.9 % Platelet Count 263 TH/MM3 242 TH/MM3 Mean Platelet Volume 8.7 FL 8.7 FL Neutrophils (%) (Auto) 42.3 % 93.5 % Lymphocytes (%) (Auto) 45.9 % 5.2 % Monocytes (%) (Auto) 10.1 % 1.2 % Eosinophils (%) (Auto) 0.9 % 0.0 % Basophils (%) (Auto) 0.8 % 0.1 % Neutrophils # (Auto) 1.9 TH/MM3 14.6 TH/MM3 Lymphocytes # (Auto) 2.1 TH/MM3 0.8 TH/MM3 Monocytes # (Auto) 0.5 TH/MM3 0.2 TH/MM3 Eosinophils # (Auto) 0.0 TH/MM3 0.0 TH/MM3 Basophils # (Auto) 0.0 TH/MM3 0.0 TH/MM3 CBC Comment DIFF FINAL DIFF FINAL Differential Comment Laboratory Tests Test 12/26/16 01:15 12/26/16 21:56 12/27/16 04:41 Blood Urea Nitrogen 13 MG/DL 15 MG/DL Creatinine 1.04 MG/DL 1.05 MG/DL Random Glucose 85 MG/DL 151 MG/DL Total Protein 9.3 GM/DL 8.5 GM/DL Albumin 3.4 GM/DL 3.1 GM/DL Calcium Level 8.5 MG/DL 8.8 MG/DL Magnesium Level 1.9 MG/DL 2.0 MG/DL Alkaline Phosphatase 86 U/L 77 U/L Aspartate Amino Transf (AST/SGOT) 30 U/L 16 U/L Alanine Aminotransferase (ALT/SGPT) 24 U/L 17 U/L Total Bilirubin 0.1 MG/DL 0.1 MG/DL Sodium Level 139 MEQ/L 137 MEQ/L Potassium Level 4.1 MEQ/L 3.0 MEQ/L Chloride Level 107 MEQ/L 106 MEQ/L Carbon Dioxide Level 22.1 MEQ/L 18.4 MEQ/L Anion Gap 10 MEQ/L 13 MEQ/L Estimat Glomerular Filtration Rate 71 ML/MIN 70 ML/MIN Total Creatine Kinase 136 U/L Creatine Kinase MB 1.3 NG/ML Troponin I LESS THAN 0.02 NG/ML B-Type Natriuretic Peptide 44 PG/ML Lipase 129 U/L Thyroid Stimulating Hormone 3rd Gen 0.998 uIU/ML C-Reactive Protein LESS THAN 0.29 MG/DL Phosphorus Level 1.8 MG/DL Microbiology Date/Time Source Procedure Growth Status 12/26/16 04:50 Blood Peripheral Aerobic Blood Culture - Preliminary NO GROWTH IN 1 DAY Resulted 12/26/16 04:50 Blood Peripheral Anaerobic Blood Culture - Preliminary NO GROWTH IN 1 DAY Resulted 12/26/16 04:50 Blood Peripheral Aerobic Blood Culture - Preliminary NO GROWTH IN 1 DAY Resulted 12/26/16 04:50 Blood Peripheral Anaerobic Blood Culture - Preliminary NO GROWTH IN 1 DAY Resulted Imaging Last Impressions Chest X-Ray 12/26/16 0108 Signed Impressions: Service Date/Time: Monday, December 26, 2016 01:16 - CONCLUSION: Cardiomegaly. No acute cardiopulmonary disease. Christiano Harris MD Neck CT 12/26/16 0000 Signed Impressions: Service Date/Time: Monday, December 26, 2016 02:57 - CONCLUSION: 1. Findings of epiglottitis with supraglottic edema and significant narrowing of the glottic and supraglottic airway. The airway is potentially at risk. 2. There is no evidence of abscess but with retropharyngeal effusion Christiano Harris MD Physical Exam GENERAL: This is a well-nourished, well-developed patient, in no apparent distress. SKIN: No rashes, ecchymoses or lesions. Cool and dry. HEAD: Atraumatic. Normocephalic. No temporal or scalp tenderness. EYES: Pupils equal round and reactive. Extraocular motions intact. No scleral icterus. No injection or drainage. ENT: Nose without bleeding, purulent drainage or septal hematoma. Throat without erythema, tonsillar hypertrophy or exudate. Uvula midline. Airway patent. NECK: Trachea midline. No JVD or lymphadenopathy. Supple, nontender, no meningeal signs. Large neck, small airway. CARDIOVASCULAR: Regular rate and rhythm without murmurs, gallops, or rubs. RESPIRATORY: Clear to auscultation. Breath sounds equal bilaterally. No wheezes , rales, or rhonchi. GASTROINTESTINAL: Abdomen soft, non-tender, nondistended. No hepato-splenomegaly , or palpable masses. No guarding. MUSCULOSKELETAL: Extremities without clubbing, cyanosis, or edema. No joint tenderness, effusion, or edema noted. No calf tenderness. Negative Homans sign bilaterally. NEUROLOGICAL: Awake and alert. Cranial nerves II through XII intact. Motor and sensory grossly within normal limits. Five out of 5 muscle strength in all muscle groups. Normal speech. Psych: Cooperative, flat affect but denies Suicidal ideations. IV line sites with no e.o infection. Assessment & Plan Remarks Acute epiglottitis (H.influ,Strep, Staph or MRSA likely causative organisms. Lisinopril can cause angioedema and on hold. Immune compromised host HIV on HAART ? compliance. Multiple antibiotics and antivirals prior to admission. recs continue ceftriaxone IV Continue Vanco IV (target 10-15) Follow cultures Follow clinically. Check CD4 Check VL Obtain records from her ID physician in community for assessment of appropriateness of HIV regimen in hospital. d/w pt at length, answered all her questions. Mayela Pittman MD Dec 27, 2016 14:53
[2016-12-27] MEDS ORDERED: POTASSIUM CHLORIDE 20 MEQ CONTROLLED RELEASE TAB PO ONE (15:00)
[2016-12-27] MEDS ORDERED: PHARMACY ORDERED LAB ONE (17:45)
== END 2016-12-27 17:57 | disposition left against medical advice (07) | DRG 153 ==
LOC: NEPE 00:44 → NEDA 03:59 → N03B 06:21
PROVIDERS: ADMIT Internal Medicine; ATTEND Internal Medicine
DX: J05.10 Acute epiglottitis without obstruction (principal); I12.9 Hypertensive chronic kidney disease with stage 1 through stage 4 chronic kidney disease, or unspecified chronic kidney disease; J44.9 Chronic obstructive pulmonary disease, unspecified; Z21 Asymptomatic human immunodeficiency virus [HIV] infection status; M54.2 Cervicalgia; F17.210 Nicotine dependence, cigarettes, uncomplicated; N18.9 Chronic kidney disease, unspecified; G89.29 Other chronic pain; R10.12 Left upper quadrant pain; R59.1 Generalized enlarged lymph nodes
CPT/HCPCS: 70491; 71010; 76937; 80053; 80074; 80307; 81001; 82550; 82552; 83690; 83735; 83880; 84100; 84443; 84484; 84703; 85025; 85610; 85730; 86140; 86308; 86355; 86357; 86359; 86360; 87040; 87535; 87641; 93005; 94640; 94664; 96361; 96372; 96374; 96375; J0171; J0696; J1100; J1200; J1644; J2930; J3370; J7030; J7040; Q9967

== ENCOUNTER 2017-05-14 15:53 | Emergency (ER) | payer OTHER ==
[~2017-05-14] VITALS: Ht 182.9 cm; Wt 121.0 kg
[2017-05-14 16:00] VITALS: BP 180/91; PULSE 91; RESP 20; TEMP 97.7; O2SAT 98
--- NOTE | 2017-05-14 16:38 | RADRPT ---
EXAM DATE/TIME: 05/14/2017 16:28 [facility] COMPARISON: POC ULTRASOUND VASCULAR ACCESS TEAM, December 27, 2016, 8:02. POC ULTRASOUND VASCULAR ACCESS TEAM, N ov2016, 8:58. INDICATIONS : Second digit left hand pain and swelling for one week. Patient states there could be a glass foreign body. MEDICAL HISTORY : None. SURGICAL HISTORY : None. ENCOUNTER: Initial ACUITY: 1 week PAIN SCORE: 10/10 LOCATION: Left second digit FINDINGS: Marked soft tissue swelling second digit with radiolucent foreign body seen just above the PIP joint. No fracture. No osteo-myelitis CONCLUSION: Soft tissue swelling with foreign body. Linus Rocha MD FACR on May 14, 2017 at 16:34 Board Certified Radiologist. This report was verified electronically.
[2017-05-14] MEDS ORDERED: LIDOCAINE 1%/EPINEPHrine 1:100,000 SOLN 20 ML VIAL INFIL ONE (17:45)
--- NOTE | 2017-05-14 18:20 | PD ---
HPI Chief Complaint: Skin Problem Time Seen by Provider: 17:34 Travel History International Travel<30 days: No Contact w/Intl Traveler<30days: No Traveled to known affect area: No History of Present Illness HPI 41-year-old female presents emergency department with worsening swelling and pain in the left index finger. Patient states she received a cut from a broken glass from a broken cell phone last week. She was seen and placed on Keflex and Bactrim on Monday. Patient states the last 2 days the pain has gotten much worse, and swelling as well. She denies fever, chills, or spontaneous drainage. She is unable to bend the fingers secondary to the edema. Pain is 9 out of 10. She is allergic to. Buprenorphine and oxycodone. PFSH Past Medical History Asthma: Yes Autoimmune Disease: Yes Heart Rhythm Problems: No Cardiac Catheterization: No Cardiovascular Problems: Yes (HTN) High Cholesterol: No Congestive Heart Failure: No COPD: Yes Diabetes: No Diminished Hearing: No Headaches: Yes Herniated Disk: Yes (NECK) Hypertension: Yes Immune Disorder: Yes (HIV POS) Respiratory: Yes Renal Failure: Yes Ulcer: Yes Tetanus Vaccination: > 5 Years Influenza Vaccination: No PNEUMOCCOCAL Vaccine (Year): 3 ?: Not LMP: 04/30/17 : 6 Para: 6 Ovarian Cysts: Yes Tubal Ligation: Yes Past Surgical History Coronary Artery Bypass Graft: No Gynecologic Surgery: Yes Social History Alcohol Use: Yes (OCCASSIONALLY) Tobacco Use: Yes (4 TO 6 CIGS A DAY) Substance Use: Yes (MARIJUANA) Allergies-Medications (Allergen,Severity, Reaction): Coded Allergies: buprenorphine (Unverified Allergy, Severe, 12/26/16) ITCHING, LIP SWELLING oxycodone (Unverified Allergy, Severe, Itching, 12/26/16) Reported Meds & Prescriptions Reported Meds & Active Scripts Active Tramadol (Tramadol HCl) 50 Mg Tab 50 Mg PO Q6H PRN Truvada (Emtricitabine-Tenofovir Disoproxil Fumarate) 200-300 Mg Tab 1 Tab PO DAILY Prezista (Darunavir) 800 Mg Tab 800 Mg PO DAILY Tivicay (Dolutegravir Sodium) 50 Mg Tab 50 Mg PO DAILY Lisinopril 20 Mg Tab 20 Mg PO DAILY Reported Hydrochlorothiazide 25 Mg Tab 25 Mg PO DAILY Proair Respiclick Inh (Albuterol Sulfate) 90 Mcg/Act Aerp 1 Puff INH Q4H PRN Norvir (Ritonavir) 100 Mg Cap 300 Mg PO BID Review of Systems Except as stated in HPI: all other systems reviewed are Neg General / Constitutional: No: Fever Eyes: No: Visual changes HENT: No: Headaches Cardiovascular: No: Chest Pain or Discomfort Respiratory: No: Shortness of Breath Gastrointestinal: No: Abdominal Pain Genitourinary: No: Dysuria Musculoskeletal: No: Pain Skin: Positive Lesions (See history of present illness per), No Rash Neurologic: No: Weakness Psychiatric: No: Depression Endocrine: No: Polydipsia Hematologic/Lymphatic: No: Easy Bruising Physical Exam Narrative GENERAL: Patient appears in mild distress. SKIN: Warm and dry. Normal color. Normal turgor. Patient is obvious swelling and abscess to the left index finger from the PIP joint to the tip of the finger. There is a healed superficial laceration to the tip. There is induration and tenderness. There is increased warmth. There is no streaking however approximately HEAD: Atraumatic. Normocephalic. EYES: Pupils equal and round. No scleral icterus. No injection or drainage. ENT: No nasal bleeding or discharge. Mucous membranes pink and moist. Pharynx is clear. Airways patent NECK: Trachea midline. Supple and nontender per CARDIOVASCULAR: Regular rate and rhythm. RESPIRATORY: No accessory muscle use. Clear to auscultation. Breath sounds equal bilaterally. MUSCULOSKELETAL: Extremities without clubbing, cyanosis, or edema. No obvious deformities. NEUROLOGICAL: Awake and alert. No obvious cranial nerve deficits. Motor grossly within normal limits. Five out of 5 muscle strength in the arms and legs. Normal speech. PSYCHIATRIC: Appropriate mood and affect; insight and judgment normal. Data Data Last Documented VS Vital Signs Date Time Temp Pulse Resp B/P (MAP) Pulse Ox O2 Delivery O2 Flow Rate FiO2 05/14/17 16:51 86 18 05/14/17 16:00 97.7 180/91 (120) 98 Orders Orders Finger (Cco6lmw) (05/14/17 ) Lidocai-Epi 1%-1:100,000 Inj (Xylocaine- (05/14/17 17:45) Wound Culture And Gram Stain (05/14/17 18:15) MDM Medical Decision Making Medical Screen Exam Complete: Yes Emergency Medical Condition: Yes Differential Diagnosis Cellulitis. Abscess. MRSA. [place] Narrative Course Patient is medically stable at time of exam. I&D of the left index finger is performed. See my procedure note. Patient is to continue her antibiotic as previously prescribed Patient is given tramadol 50 mg 1 every 6 hours as needed pain #20. Patient is to follow with Dr. Barrera, the hand surgeon as discussed. Patient can return to emergency department as needed. Procedures Procedure Narrative After the risks and benefits were discussed the following procedure was performed: INCISION AND DRAINAGE OF ABSCESS: The area was prepped and was sterilely draped. Digital block of 1% Xylocaine with a total number 3 mL was used to anesthetize the area. The area was properly anesthetized. A number 11 scalpel was used to make a 0.5-cm incision across the area of the abscess. Cultures were obtained. The abscess was drained an irrigated with normal saline. Sterile dressing applied. Patient advised to follow-up with a hand surgeon as discussed. Diagnosis Primary Impression: Abscess of left index finger Referrals: Bryan Barrera III, MD call for appointment Patient Instructions: Abscess Incision and Drainage (DC), General Instructions Additional Instructions: I&D of the left index finger is performed. Patient is to continue her antibiotic as previously prescribed Patient is given tramadol 50 mg 1 every 6 hours as needed pain #20. Patient is to follow with Dr. Barrera, the hand surgeon as discussed. Patient can return to emergency department as needed. Med/Other Pt SpecificInfo: Prescription(s) given Scripts Tramadol (Tramadol) 50 Mg Tab 50 MG PO Q6H Y for PAIN, #20 TAB 0 Refills Prov: Ismael Pichardo MD 05/14/17 Disposition: 01 DISCHARGE HOME Condition: Stable Artemio Granados May 14, 2017 18:20
[2017-05-14] MEDS ORDERED: TRAM50TA PO (18:27)
== END 2017-05-14 19:18 | disposition home or self-care (01) ==
LOC: NEPD 15:53
DX: L02.512 Cutaneous abscess of left hand (principal); I12.9 Hypertensive chronic kidney disease with stage 1 through stage 4 chronic kidney disease, or unspecified chronic kidney disease; N18.9 Chronic kidney disease, unspecified; J44.9 Chronic obstructive pulmonary disease, unspecified; F17.210 Nicotine dependence, cigarettes, uncomplicated; F12.90 Cannabis use, unspecified, uncomplicated; Z21 Asymptomatic human immunodeficiency virus [HIV] infection status
CPT/HCPCS: 10060; 73140

== ENCOUNTER 2017-07-03 02:05 | Emergency (ER) | payer OTHER ==
[~2017-07-03] VITALS: Ht 182.9 cm; Wt 120.0 kg
[~2017-07-03 02:05] MED LIST changes: -AZIT250T3 PO; -BACT800T5 PO; -DICL75TA PO; -HYDR-3533 PO; -METR-1 PO; +TRAM50TA PO; -ZOFR4TAB3 SL
[2017-07-03 02:13] VITALS: BP 175/99; PULSE 92; RESP 18; TEMP 98.3; O2SAT 100
[2017-07-03] MEDS ORDERED: SODIUM CHLOR 0.9% 1000 ML INJ 1,000 ML IV SCH (02:33)
[2017-07-03] MEDS ORDERED: SODIUM CHLORIDE 0.9% FLUSH 10 ML FLUSH IV FLUSH PRN (02:45)
--- NOTE | 2017-07-03 03:10 | RADRPT ---
EXAM DATE/TIME: 07/03/2017 02:55 [facility] COMPARISON: No previous studies available for comparison. INDICATIONS : Chest pain. MEDICAL HISTORY : Hypertension. HIV. Asthma SURGICAL HISTORY : Tubal ligation. Fusion, cervical. ENCOUNTER: Initial ACUITY: 1 day PAIN SCORE: 3/10 LOCATION: Bilateral chest FINDINGS: A single view of the chest demonstrates the lungs to be symmetrically aerated without evidence of mas s, infiltrate or effusion. The cardiomediastinal contours are unremarkable. Osseous structures are intact. CONCLUSION: No acute disease. Raleigh Rodas MD on July 03, 2017 at 3:07 Board Certified Radiologist. This report was verified electronically.
[2017-07-03 03:43] LABS: AUTOMATED NEUTROPHIL # 2.1 TH/MM3 (1.8-7.7); BASOPHIL % 0.7 % (0.0-2.0); EOSINOPHIL # 0.1 TH/MM3 (0-0.4); EOSINOPHIL % 1.3 % (0.0-4.0); HEMATOCRIT 30.1 % (35.0-46.0); HEMOGLOBIN 9.8 GM/DL (11.6-15.3); LYMPH % 40.5 % (9.0-44.0); LYMPHOCYTE # 1.9 TH/MM3 (1.0-4.8); MEAN CELL VOLUME 86.1 FL (80.0-100.0); MEAN CORPUSCULAR HEMOGLOBIN 28.1 PG (27.0-34.0); MEAN CORPUSCULAR HGB CONC 32.7 % (32.0-36.0); MEAN PLATELET VOLUME 8.1 FL (7.0-11.0); MONO % 12.8 % (0.0-8.0); MONOCYTE # 0.6 TH/MM3 (0-0.9); NEUT % 44.7 % (16.0-70.0); PLATELET COUNT 285 TH/MM3 (150-450); RED BLOOD COUNT 3.49 MIL/MM3 (4.00-5.30); RED CELL DISTRIBUTION WIDTH 15.9 % (11.6-17.2); WHITE BLOOD COUNT 4.7 TH/MM3 (4.0-11.0)
[2017-07-03 03:44] LABS: BILIRUBIN, URINE NEG (NEG); BLOOD, URINE MOD (NEG); GLUCOSE,URINE NEG (NEG); KETONE, URINE NEG (NEG); MUCUS URINE FEW /lpf (OCC); NITRITE,URINE NEG (NEG); PH, URINE 6.5 (5.0-8.5); SQUAMOUS EPITHELIAL CELL URINE 2 /hpf (0-5); URINE COLOR YELLOW (YELLW/STRAW); URINE LEUKOCYTE ESTERASE LARGE (NEG); WHITE BLOOD CELL CLUMPS RARE
[2017-07-03] MEDS ORDERED: CIPR250T52 PO (03:49)
--- NOTE | 2017-07-03 03:49 | PD ---
HPI Chief Complaint: Abdominal Pain Time Seen by Provider: 02:33 Travel History International Travel<30 days: No Contact w/Intl Traveler<30days: No Traveled to known affect area: No History of Present Illness HPI 41-year-old female arrives to the ER with complaint of left upper quadrant abdominal pain, left chest and left back pain, a sensation of mucus collecting in the stomach, discolored lesions on the legs, pores in the skin releasing a bad odor which she notices in her room when she wakes up at night. No fever. No vomiting. Patient reports wheezing. Duration of symptoms are variable depending on complaints offered. She states her possible complaint is left upper quadrant discomfort at the conclusion of the discussion. PFSH Past Medical History Asthma: Yes Autoimmune Disease: Yes Heart Rhythm Problems: No Cardiac Catheterization: No Cardiovascular Problems: Yes (HTN) High Cholesterol: No Congestive Heart Failure: No COPD: Yes Diabetes: No Diminished Hearing: No Headaches: Yes Herniated Disk: Yes (NECK) Hypertension: Yes Immune Disorder: Yes (HIV POS) Respiratory: Yes Renal Failure: Yes Ulcer: Yes Tetanus Vaccination: Unknown Influenza Vaccination: No PNEUMOCCOCAL Vaccine (Year): 3 ?: Not LMP: 06/30/2017 : 6 Para: 6 Ovarian Cysts: Yes Tubal Ligation: Yes Past Surgical History Coronary Artery Bypass Graft: No Gynecologic Surgery: Yes Social History Alcohol Use: Yes (OCCASSIONALLY) Tobacco Use: Yes (4 TO 6 CIGS A DAY) Substance Use: No (denies) Allergies-Medications (Allergen,Severity, Reaction): Coded Allergies: buprenorphine (Unverified Allergy, Severe, 07/03/17) ITCHING, LIP SWELLING oxycodone (Unverified Allergy, Severe, Itching, 07/03/17) Reported Meds & Prescriptions Reported Meds & Active Scripts Active Cipro (Ciprofloxacin HCl) 250 Mg Tab 250 Mg PO BID 3 Days Tramadol (Tramadol HCl) 50 Mg Tab 50 Mg PO Q6H PRN Truvada (Emtricitabine-Tenofovir Disoproxil Fumarate) 200-300 Mg Tab 1 Tab PO DAILY Prezista (Darunavir) 800 Mg Tab 800 Mg PO DAILY Tivicay (Dolutegravir Sodium) 50 Mg Tab 50 Mg PO DAILY Lisinopril 20 Mg Tab 20 Mg PO DAILY Reported Hydrochlorothiazide 25 Mg Tab 25 Mg PO DAILY Proair Respiclick Inh (Albuterol Sulfate) 90 Mcg/Act Aerp 1 Puff INH Q4H PRN Norvir (Ritonavir) 100 Mg Cap 300 Mg PO BID Review of Systems Except as stated in HPI: all other systems reviewed are Neg General / Constitutional: No: Fever Physical Exam Narrative GENERAL: 41-year-old female, no acute distress, BMI 36 Vital Signs Date Time Temp Pulse Resp B/P (MAP) Pulse Ox O2 Delivery O2 Flow Rate FiO2 07/03/17 02:13 98.3 92 18 175/99 (124) 100 SKIN: Warm and dry. Patient has occasional nonspecific lesions but the lower extremity consistent with healing wounds of various sorts none of which appears infected. HEAD: Atraumatic. Normocephalic. EYES: Pupils equal and round. No scleral icterus. No injection or drainage. ENT: No nasal bleeding or discharge. Mucous membranes pink and moist. NECK: Trachea midline. No JVD. CARDIOVASCULAR: Regular rate and rhythm. RESPIRATORY: No accessory muscle use. Clear to auscultation. Breath sounds equal bilaterally. GASTROINTESTINAL: Abdomen soft, non-tender, nondistended. Hepatic and splenic margins not palpable. MUSCULOSKELETAL: Extremities without clubbing, cyanosis, or edema. No obvious deformities. NEUROLOGICAL: Awake and alert. No obvious cranial nerve deficits. Motor grossly within normal limits. Five out of 5 muscle strength in the arms and legs. Normal speech. PSYCHIATRIC: Appropriate mood and affect; insight and judgment normal. Data Data Last Documented VS Vital Signs Date Time Temp Pulse Resp B/P (MAP) Pulse Ox O2 Delivery O2 Flow Rate FiO2 07/03/17 02:13 98.3 92 18 175/99 (124) 100 Orders Orders Complete Blood Count With Diff (07/03/17 02:33) Comprehensive Metabolic Panel (07/03/17 02:33) Lipase (07/03/17 02:33) Urinalysis - C+S If Indicated (07/03/17 02:33) Iv Access Insert/Monitor (07/03/17 02:33) Ecg Monitoring (07/03/17 02:33) Oximetry (07/03/17 02:33) Sodium Chlor 0.9% 1000 Ml Inj (Ns 1000 M (07/03/17 02:33) Sodium Chloride 0.9% Flush (Ns Flush) (07/03/17 02:45) Chest, Single Ap (07/03/17 02:33) Ed Urine Pregnancytest Poc (07/03/17 02:33) Urine Culture (07/03/17 03:30) Ciprofloxacin (Cipro) (07/03/17 04:00) Ed Discharge Order (07/03/17 05:23) Labs Laboratory Tests Test 07/03/17 03:30 07/03/17 04:53 White Blood Count 4.7 TH/MM3 Red Blood Count 3.49 MIL/MM3 Hemoglobin 9.8 GM/DL Hematocrit 30.1 % Mean Corpuscular Volume 86.1 FL Mean Corpuscular Hemoglobin 28.1 PG Mean Corpuscular Hemoglobin Concent 32.7 % Red Cell Distribution Width 15.9 % Platelet Count 285 TH/MM3 Mean Platelet Volume 8.1 FL Neutrophils (%) (Auto) 44.7 % Lymphocytes (%) (Auto) 40.5 % Monocytes (%) (Auto) 12.8 % Eosinophils (%) (Auto) 1.3 % Basophils (%) (Auto) 0.7 % Neutrophils # (Auto) 2.1 TH/MM3 Lymphocytes # (Auto) 1.9 TH/MM3 Monocytes # (Auto) 0.6 TH/MM3 Eosinophils # (Auto) 0.1 TH/MM3 Basophils # (Auto) 0.0 TH/MM3 CBC Comment DIFF FINAL Differential Comment Urine Color YELLOW Urine Turbidity HAZY Urine pH 6.5 Urine Specific [place] 1.026 Urine Protein TRACE mg/dL Urine Glucose (UA) NEG mg/dL Urine Ketones NEG mg/dL Urine Occult Blood MOD Urine Nitrite NEG Urine Bilirubin NEG Urine Urobilinogen 2.0 MG/DL Urine Leukocyte Esterase LARGE Urine RBC 47 /hpf Urine WBC 70 /hpf Urine WBC Clumps RARE Urine Squamous Epithelial Cells 2 /hpf Urine Mucus FEW /lpf Microscopic Urinalysis Comment CULTURE INDICATED Blood Urea Nitrogen 12 MG/DL Creatinine 0.92 MG/DL Random Glucose 84 MG/DL Total Protein 7.3 GM/DL Albumin 2.8 GM/DL Calcium Level 7.8 MG/DL Alkaline Phosphatase 82 U/L Aspartate Amino Transf (AST/SGOT) 21 U/L Alanine Aminotransferase (ALT/SGPT) 17 U/L Total Bilirubin LESS THAN 0.1 MG/DL Sodium Level 141 MEQ/L Potassium Level 4.0 MEQ/L Chloride Level 113 MEQ/L Carbon Dioxide Level 22.9 MEQ/L Anion Gap 5 MEQ/L Estimat Glomerular Filtration Rate 81 ML/MIN Lipase 243 U/L [facility] Medical Decision Making Medical Screen Exam Complete: Yes Emergency Medical Condition: Yes Medical Record Reviewed: Yes Differential Diagnosis UTI, pneumonia, anemia Narrative Course CBC & BMP Diagram 07/03/17 03:30 07/03/17 04:53 Total Protein 7.3, Albumin 2.8 L, Calcium Level 7.8 L, Alkaline Phosphatase 82, Aspartate Amino Transf (AST/SGOT) 21, Alanine Aminotransferase (ALT/SGPT) 17, Total Bilirubin LESS THAN 0.1 L Urinalysis shows UTI The patient is resting comfortably and feels better, is alert and in no distress. The patients results and examination findings were discussed. The repeat examination is unremarkable and benign. The history, exam, diagnostic testing, and current condition do not suggest any significant pathology to warrant further testing, continued ED treatment, admission, or surgical evaluation at this point. The vital signs have been stable. The patient does not have uncontrollable pain, intractable vomiting, or other significant symptoms. The patient's condition is stable and appropriate for discharge. The patient will pursue further outpatient evaluation with a primary care physician or other designated or consulting physician as indicated in the discharge instructions. The patient expressed understanding and was agreeable with this plan. Diagnosis Primary Impression: UTI (urinary tract infection) Qualified Codes: N30.01 - Acute cystitis with hematuria Referrals: Primary Care Physician call for appointment Med/Other Pt SpecificInfo: Prescription(s) given Scripts Ciprofloxacin (Cipro) 250 Mg Tab 250 MG PO BID for Infection for 3 Days, #6 TAB 0 Refills Prov: Bal Smiley MD 07/03/17 Disposition: 01 DISCHARGE HOME Condition: Stable Bal Smiley MD July 03, 2017 03:49
[2017-07-03] MEDS ORDERED: CIPROFLOXACIN 500 MG TAB PO ONE (04:00)
[2017-07-03 05:20] LABS: ALBUMIN 2.8 GM/DL (3.4-5.0); ALT (GPT) 17 U/L (10-53); AST (GOT) 21 U/L (15-37); BICARBONATE 22.9 MEQ/L (21.0-32.0); BLOOD UREA NITROGEN 12 MG/DL (7-18); CALCIUM 7.8 MG/DL (8.5-10.1); CHLORIDE 113 MEQ/L (98-107); CREATININE 0.92 MG/DL (0.50-1.00); GLOMERULAR FILTRATION RATE 81 ML/MIN (>89); GLUCOSE,RANDOM 84 MG/DL (74-106); SODIUM (NA) 141 MEQ/L (136-145)
[2017-07-03 05:21] LABS: ALKALINE PHOSPHATASE 82 U/L (45-117); TOTAL BILIRUBIN ADULT LESS THAN 0.1 MG/DL (0.2-1.0); TOTAL PROTEIN 7.3 GM/DL (6.4-8.2)
[2017-07-03] MEDS ORDERED: LISI-515 PO (06:22)
== END 2017-07-03 06:32 | disposition home or self-care (01) ==
LOC: NEPC 02:05
DX: B20 Human immunodeficiency virus [HIV] disease (principal); N30.01 Acute cystitis with hematuria; F17.210 Nicotine dependence, cigarettes, uncomplicated; I10 Essential (primary) hypertension
CPT/HCPCS: 71045; 80053; 81001; 83690; 84703; 85025; 87086; 96360; 96361; 99284; J7030

== ENCOUNTER 2017-07-13 02:41 | Emergency (ER) | payer OTHER ==
[~2017-07-13] VITALS: Ht 182.9 cm; Wt 125.0 kg
[~2017-07-13 02:41] MED LIST changes: +CIPR250T52 PO
[2017-07-13 02:57] VITALS: BP 159/93; PULSE 92; RESP 18; O2SAT 100
--- NOTE | 2017-07-13 03:20 | PD ---
HPI Chief Complaint: Abdominal Pain Time Seen by Provider: 03:08 Travel History International Travel<30 days: No Contact w/Intl Traveler<30days: No Traveled to known affect area: No History of Present Illness HPI 41yo F with PMH of HTN, HIV on medications but unknown CD4 count here with c/o left lower abdominal pain since last night. Said pain is sharp, nonradiating and constant. Denies any fever, chest pain, sob, n/v, dysuria, hematuria, vaginal bleeding or discharge. Pt also noted bilateral foot swelling for a few days. Denies any trauma, focal weakness or numbness. PFSH Past Medical History Asthma: Yes Autoimmune Disease: Yes Heart Rhythm Problems: No Cardiac Catheterization: No Cardiovascular Problems: Yes (HTN) High Cholesterol: No Congestive Heart Failure: No COPD: Yes Diabetes: No Diminished Hearing: No Headaches: Yes Heparin Induced Thrombocytopen: No Herniated Disk: Yes (NECK) Hypertension: Yes Immune Disorder: Yes (HIV POS) Respiratory: Yes Renal Failure: Yes Ulcer: Yes PNEUMOCCOCAL Vaccine (Year): 3 ?: Not : 6 Para: 6 Ovarian Cysts: Yes Tubal Ligation: Yes Past Surgical History Coronary Artery Bypass Graft: No Gynecologic Surgery: Yes Other Surgery: Yes Social History Alcohol Use: Yes (OCCASSIONALLY) Tobacco Use: Yes (4 TO 6 CIGS A DAY) Substance Use: No (denies) Allergies-Medications (Allergen,Severity, Reaction): Coded Allergies: buprenorphine (Unverified Allergy, Severe, 07/13/17) ITCHING, LIP SWELLING oxycodone (Unverified Allergy, Severe, Itching, 07/13/17) Reported Meds & Prescriptions Reported Meds & Active Scripts Active Lisinopril 20 Mg Tab 20 Mg PO DAILY Cipro (Ciprofloxacin HCl) 250 Mg Tab 250 Mg PO BID 3 Days Tramadol (Tramadol HCl) 50 Mg Tab 50 Mg PO Q6H PRN Truvada (Emtricitabine-Tenofovir Disoproxil Fumarate) 200-300 Mg Tab 1 Tab PO DAILY Prezista (Darunavir) 800 Mg Tab 800 Mg PO DAILY Tivicay (Dolutegravir Sodium) 50 Mg Tab 50 Mg PO DAILY Reported Hydrochlorothiazide 25 Mg Tab 25 Mg PO DAILY Proair Respiclick Inh (Albuterol Sulfate) 90 Mcg/Act Aerp 1 Puff INH Q4H PRN Norvir (Ritonavir) 100 Mg Cap 300 Mg PO BID Review of Systems Except as stated in HPI: all other systems reviewed are Neg Physical Exam Narrative GENERAL: 41yo F in mild distress. SKIN: Focused skin assessment warm/dry. HEAD: Atraumatic. Normocephalic. EYES: Pupils equal and round. No scleral icterus. No injection or drainage. ENT: No nasal bleeding or discharge. Mucous membranes pink and moist. NECK: Trachea midline. No JVD. CARDIOVASCULAR: Regular rate and rhythm. No murmur appreciated. RESPIRATORY: No accessory muscle use. Clear to auscultation. Breath sounds equal bilaterally. GASTROINTESTINAL: Abdomen soft, Mild ttp periumbilical and LLQ. +TTP suprapubic region. No rebound tenderness or guarding. MUSCULOSKELETAL: No obvious deformities. No clubbing. No cyanosis. +Bilateral lower extremity edema. NEUROLOGICAL: Awake and alert. No obvious cranial nerve deficits. Motor grossly within normal limits. Normal speech. PSYCHIATRIC: Appropriate mood and affect; insight and judgment normal. Data Data Last Documented VS Vital Signs Date Time Temp Pulse Resp B/P (MAP) Pulse Ox O2 Delivery O2 Flow Rate FiO2 07/13/17 04:59 97.9 07/13/17 02:57 92 18 159/93 (115) 100 Orders Orders Complete Blood Count With Diff (07/13/17 03:15) Comprehensive Metabolic Panel (07/13/17 03:15) Lipase (07/13/17 03:15) Urinalysis - C+S If Indicated (07/13/17 03:15) Ct Abd/Pel W Iv Contrast(Rout) (07/13/17 03:15) Urine Culture (07/13/17 03:28) Iohexol 350 Inj (Omnipaque 350 Inj) (07/13/17 04:29) Ketorolac Inj (Toradol Inj) (07/13/17 05:45) Sulfamet-Trimeth Ds 800-160 Mg (Bactrim (07/13/17 05:45) Ondansetron Odt (Zofran Odt) (07/13/17 06:00) Labs Laboratory Tests Test 07/13/17 03:28 White Blood Count 2.7 TH/MM3 Red Blood Count 3.63 MIL/MM3 Hemoglobin 10.2 GM/DL Hematocrit 31.2 % Mean Corpuscular Volume 86.0 FL Mean Corpuscular Hemoglobin 28.0 PG Mean Corpuscular Hemoglobin Concent 32.6 % Red Cell Distribution Width 15.1 % Platelet Count 274 TH/MM3 Mean Platelet Volume 8.5 FL Neutrophils (%) (Auto) 29.6 % Lymphocytes (%) (Auto) 54.9 % Monocytes (%) (Auto) 14.2 % Eosinophils (%) (Auto) 0.4 % Basophils (%) (Auto) 0.9 % Neutrophils # (Auto) 0.8 TH/MM3 Lymphocytes # (Auto) 1.5 TH/MM3 Monocytes # (Auto) 0.4 TH/MM3 Eosinophils # (Auto) 0.0 TH/MM3 Basophils # (Auto) 0.0 TH/MM3 CBC Comment AUTO DIFF Differential Total Cells Counted 100 Neutrophils % (Manual) 21 % Band Neutrophils % 2 % Lymphocytes % 58 % Monocytes % 7 % Basophils % 2 % Neutrophils # (Manual) 0.6 TH/MM3 Differential Comment FINAL DIFF MANUAL Atypical Lymphocytes 10 % Platelet Estimate NORMAL Platelet Morphology Comment NORMAL Red Cell Morphology Comment NORMAL Urine Color YELLOW Urine Turbidity HAZY Urine pH 5.5 Urine Specific [place] 1.013 Urine Protein NEG mg/dL Urine Glucose (UA) NEG mg/dL Urine Ketones NEG mg/dL Urine Occult Blood MOD Urine Nitrite NEG Urine Bilirubin NEG Urine Urobilinogen LESS THAN 2.0 MG/DL Urine Leukocyte Esterase LARGE Urine RBC 12 /hpf Urine WBC 21 /hpf Urine Squamous Epithelial Cells 8 /hpf Urine Transitional Epithelial Cells <1 /hpf Urine Bacteria RARE /hpf Urine Mucus FEW /lpf Microscopic Urinalysis Comment CULTURE INDICATED Blood Urea Nitrogen 6 MG/DL Creatinine 0.89 MG/DL Random Glucose 75 MG/DL Total Protein 8.5 GM/DL Albumin 3.1 GM/DL Calcium Level 8.2 MG/DL Alkaline Phosphatase 92 U/L Aspartate Amino Transf (AST/SGOT) 25 U/L Alanine Aminotransferase (ALT/SGPT) 18 U/L Total Bilirubin 0.2 MG/DL Sodium Level 139 MEQ/L Potassium Level 3.6 MEQ/L Chloride Level 107 MEQ/L Carbon Dioxide Level 25.5 MEQ/L Anion Gap 7 MEQ/L Estimat Glomerular Filtration Rate 85 ML/MIN Lipase 100 U/L [facility] Medical Decision Making Medical Screen Exam Complete: Yes Emergency Medical Condition: Yes Differential Diagnosis Diverticulitis vs. cystitis vs. gastroenteritis vs. liver disease vs. kidney disease vs. venous insufficiency Narrative Course 41yo well appearing female here with abdominal pain. Pt was just evaluated on for abdominal pain and was discharge with ciprofloxacin for UTI. No CT scan was done at that time. Urine culture was mixed gram positive heather likely contaminants. Labs reviewed, WBC is low at 2.7. Pt is HIV positive but is on medication for it. H/H low at 10.2/31.2 which is at baseline. CMP unremarkable. Lipase normal. UA showed large large leukocyte. WBC 21. This may again be contaminants but will still treat. Pt given zofran, toradol and bactrim. Pt reevaluated at bedside and feels better. CT a/p showed unremarkable bowel gas pattern with no inflammatory change. Stable small periumbilical hernia containing omental fat. Return precautions given. Diagnosis Primary Impression: UTI (urinary tract infection) Qualified Codes: N39.0 - Urinary tract infection, site not specified; R31.9 - Hematuria, unspecified Patient Instructions: General Instructions Departure Forms: Tests/Procedures Additional Instructions: Please follow up with your primary care physician in 2-3 days. Return to the ED if symptoms worsen. Med/Other Pt SpecificInfo: Prescription(s) given Scripts Cephalexin (Cephalexin) 500 Mg Cap 500 MG PO Q12H for Infection for 7 Days, #14 CAP 0 Refills Prov: Neli Galindo 07/13/17 Disposition: 01 DISCHARGE HOME Condition: Stable Neli Galindo DO July 13, 2017 03:20
[2017-07-13 04:01] LABS: AUTOMATED NEUTROPHIL # 0.8 TH/MM3 (1.8-7.7); BASOPHIL % 0.9 % (0.0-2.0); EOSINOPHIL % 0.4 % (0.0-4.0); HEMATOCRIT 31.2 % (35.0-46.0); HEMOGLOBIN 10.2 GM/DL (11.6-15.3); LYMPH % 54.9 % (9.0-44.0); LYMPHOCYTE # 1.5 TH/MM3 (1.0-4.8); MEAN CORPUSCULAR HGB CONC 32.6 % (32.0-36.0); MEAN PLATELET VOLUME 8.5 FL (7.0-11.0); MONO % 14.2 % (0.0-8.0); MONOCYTE # 0.4 TH/MM3 (0-0.9); NEUT % 29.6 % (16.0-70.0); PLATELET COUNT 274 TH/MM3 (150-450); RED BLOOD COUNT 3.63 MIL/MM3 (4.00-5.30); RED CELL DISTRIBUTION WIDTH 15.1 % (11.6-17.2); WHITE BLOOD COUNT 2.7 TH/MM3 (4.0-11.0)
[2017-07-13 04:06] LABS: ALKALINE PHOSPHATASE 92 U/L (45-117); TOTAL BILIRUBIN ADULT 0.2 MG/DL (0.2-1.0); TOTAL PROTEIN 8.5 GM/DL (6.4-8.2)
[2017-07-13 04:10] LABS: ALBUMIN 3.1 GM/DL (3.4-5.0); ALT (GPT) 18 U/L (10-53); AST (GOT) 25 U/L (15-37); BICARBONATE 25.5 MEQ/L (21.0-32.0); BLOOD UREA NITROGEN 6 MG/DL (7-18); CALCIUM 8.2 MG/DL (8.5-10.1); CHLORIDE 107 MEQ/L (98-107); CREATININE 0.89 MG/DL (0.50-1.00); GLOMERULAR FILTRATION RATE 85 ML/MIN (>89); GLUCOSE,RANDOM 75 MG/DL (74-106); SODIUM (NA) 139 MEQ/L (136-145)
[2017-07-13 04:17] LABS: BACTERIA, URINE RARE /hpf; BILIRUBIN, URINE NEG (NEG); BLOOD, URINE MOD (NEG); GLUCOSE,URINE NEG (NEG); KETONE, URINE NEG (NEG); MUCUS URINE FEW /lpf (OCC); NITRITE,URINE NEG (NEG); PH, URINE 5.5 (5.0-8.5); SQUAMOUS EPITHELIAL CELL URINE 8 /hpf (0-5); TRANSITIONAL EPI CELLS, URINE <1 /hpf; URINE COLOR YELLOW (YELLW/STRAW); URINE LEUKOCYTE ESTERASE LARGE (NEG)
[2017-07-13] MEDS ORDERED: IOHEXOL 350 MG/ML 10 ML VIAL (for RAD DIAG) IVCONTRAST ONE (04:29)
[2017-07-13 04:54] LABS: ATYPICAL LYMPHOCYTES 10 % (0-0); BANDS 2 % (0-6); BASOPHILS 2 % (0-2); LYMPHOCYTES 58 % (9-44); MONOCYTES 7 % (0-8); NEUTROPHIL # MANUAL DIFF 0.6 TH/MM3 (1.8-7.7); POLYS (SEG NEUTROPHILS) 21 % (16-70)
[2017-07-13 04:59] VITALS: TEMP 97.9
--- NOTE | 2017-07-13 05:25 | RADRPT ---
EXAM DATE: 07/13/2017 4:45 AM EDT AGE/SEX: 41 years / Female INDICATIONS: Left lower quadrant pain. CLINICAL DATA: This is the patient's initial encounter. Patient reports that signs and symptoms have been present for 1 day and indicates a pain score of 6/10. MEDICAL/SURGICAL HISTORY: Hypertension. Ulcers. Renal failure. HIV. COPD. Ovarian cysts. Tuba l ligation. ORAL CONTRAST: No oral contrast ingested. RADIATION DOSE: 20.61 CTDI (mGy) COMPARISON: [facility] – [place], CT ABDOMEN & PELVIS W CONTRAST, 02/13/2016. . TECHNIQUE: Multiple contiguous axial images were obtained through the abdomen and pelvis following b olus infusion of 100 ml Omnipaque 350 (iohexol) nonionic water-soluble contrast as a single exam do se. No oral contrast ingested. Using automated exposure control and adjustment of the mA and/or kV a ccording to patient size, the radiation dose was kept as low as reasonably achievable to obtain optim al diagnostic quality images. FINDINGS: Lower Lungs: The visualized lower lungs are clear. Liver: The liver has a homogeneous density without space-occupying lesion. There is no dilation of th e biliary tree. Spleen: Homogeneous density without enlargement. Pancreas: Unremarkable without mass or calcification. Kidneys: Normal in size and shape. No evidence of mass or hydronephrosis. Adrenal Glands: Unremarkable. Aorta: The aorta and proximal iliac vessels are grossly unremarkable without aneurysmal dilation. Bowel/Mesentery: No oral contrast was given limiting the sensitivity the exam. The bowel loops are g rossly unremarkable. The cecum and sigmoid colon have a normal configuration. There is a normal appen faye. Abdominal Wall: Stable appearance with small fat-containing periumbilical hernia. Retroperitoneum: No evidence of adenopathy in the retrocrural, para-aortic, or deep pelvic regions. Bladder: Contours are smooth. Reproductive Organs: No abnormal masses or calcifications seen. Inguinal: The inguinal region is unremarkable without evidence of adenopathy. Bony Structures: Unremarkable. CONCLUSION: 1. Unremarkable bowel gas pattern with no inflammatory change. 2. Stable small periumbilical hernia containing omental fat. Electronically signed by: Cesario Jarquin MD 07/13/2017 5:23 AM EDT
[2017-07-13] MEDS ORDERED: SULFAMETHOXAZOLE-TRIMETHOPRIM DS 800-160 MG TAB PO ONE (05:45)
[2017-07-13] MEDS ORDERED: KETOROLAC TROMETHAMINE 30 MG/ML (IVP) VIAL IV PUSH ONE (05:45)
[2017-07-13] MEDS ORDERED: CEPH500C PO (05:56)
[2017-07-13] MEDS ORDERED: ONDANSETRON ODT 4 MG TAB PO ONE (06:00)
[2017-07-13] MEDS ORDERED: CEPHALEXIN MONOHYDRATE 500 MG CAP PO ONE (06:00)
== END 2017-07-13 07:09 | disposition home or self-care (01) ==
LOC: NEPC 02:41
DX: N39.0 Urinary tract infection, site not specified (principal); K42.9 Umbilical hernia without obstruction or gangrene; M79.89 Other specified soft tissue disorders; I10 Essential (primary) hypertension; B20 Human immunodeficiency virus [HIV] disease; J45.909 Unspecified asthma, uncomplicated; J44.9 Chronic obstructive pulmonary disease, unspecified; N19 Unspecified kidney failure; F17.210 Nicotine dependence, cigarettes, uncomplicated
CPT/HCPCS: 74177; 80053; 81001; 83690; 85007; 85027; 87086; 96374; 99284; J1885; Q9967

== ENCOUNTER 2017-07-17 04:48 | Observation (INO) | payer OTHER ==
[~2017-07-17] VITALS: Ht 172.7 cm; Wt 125.0 kg
[~2017-07-17 04:48] MED LIST changes: +CEPH500C PO
[2017-07-17 04:51] VITALS: BP 159/89; PULSE 100; RESP 20; TEMP 98.8; O2SAT 100
[2017-07-17] MEDS ORDERED: ASPIRIN 81 MG CHEW TAB CHEW ONE (05:30)
[2017-07-17] MEDS ORDERED: SODIUM CHLOR 0.9% 1000 ML INJ 1,000 ML IV SCH (05:30)
[2017-07-17] MEDS ORDERED: NITROGLYCERIN 0.4 MG SL 25 TABS/BTL SL PRN ×2 (05:30→08:15)
--- NOTE | 2017-07-17 05:46 | RADRPT ---
EXAM DATE: 07/17/2017 5:42 AM EDT AGE/SEX: 41 years / Female INDICATIONS: Chest pain. CLINICAL DATA: This is the patient's initial encounter. Patient reports that signs and symptoms have been present for 1 day and indicates a pain score of 9/10. MEDICAL/SURGICAL HISTORY: Hypertension. Chronic obstructive pulmonary disease. Smoker. None. COMPARISON: [facility] [place], CHEST SINGLE AP, 07/03/2017. . FINDINGS: The lungs are clear without infiltrate, nodule, or mass. There is no appreciable pleural effusion for technique. Heart and mediastinum are unremarkable. CONCLUSION: No acute cardiopulmonary disease. Electronically signed by: Lucien Huerta MD 07/17/2017 5:44 AM EDT
[2017-07-17 05:53] LABS: AUTOMATED NEUTROPHIL # 1.8 TH/MM3 (1.8-7.7); BASOPHIL % 0.6 % (0.0-2.0); EOSINOPHIL # 0.1 TH/MM3 (0-0.4); EOSINOPHIL % 1.2 % (0.0-4.0); HEMATOCRIT 32.5 % (35.0-46.0); HEMOGLOBIN 10.5 GM/DL (11.6-15.3); LYMPH % 47.7 % (9.0-44.0); LYMPHOCYTE # 2.3 TH/MM3 (1.0-4.8); MEAN CELL VOLUME 85.2 FL (80.0-100.0); MEAN CORPUSCULAR HEMOGLOBIN 27.4 PG (27.0-34.0); MEAN CORPUSCULAR HGB CONC 32.2 % (32.0-36.0); MEAN PLATELET VOLUME 8.5 FL (7.0-11.0); MONO % 13.6 % (0.0-8.0); MONOCYTE # 0.7 TH/MM3 (0-0.9); NEUT % 36.9 % (16.0-70.0); PLATELET COUNT 256 TH/MM3 (150-450); RED BLOOD COUNT 3.82 MIL/MM3 (4.00-5.30); RED CELL DISTRIBUTION WIDTH 15.2 % (11.6-17.2); WHITE BLOOD COUNT 4.9 TH/MM3 (4.0-11.0)
--- NOTE | 2017-07-17 06:09 | PD ---
HPI Chief Complaint: Chest Pain Time Seen by Provider: 05:25 Travel History International Travel<30 days: No Contact w/Intl Traveler<30days: No Traveled to known affect area: No History of Present Illness HPI 41-year-old female presents to the emergency department by private transportation for evaluation of left-sided chest pain radiating into the left upper extremity. Symptoms have been present for approximately 2-1/2 hours. Patient denies sweats nausea vomiting or shortness of breath. Patient denies history of CAD diabetes or high cholesterol but does have history of hypertension COPD tobaccoism and family history of heart disease in mother with at age 53. Patient did not take any aspirin prior to arrival to the emergency department. Patient did take additional dose of blood pressure medication. Patient rates her pain 10/10 intensity. Patient's had no recent illness or febrile illness. Patient has had no recent long distance travel protracted bedrest or surgical procedure. Patient has noted some mild swelling of her lower extremity bilaterally. Patient does not report orthopnea or PND. Patient denies any personal history of clotting disorder. PFSH Past Medical History Narrative Medical Asthma hypertension COPD Asthma: Yes Autoimmune Disease: Yes Heart Rhythm Problems: No Cardiac Catheterization: No Cardiovascular Problems: Yes (HTN) High Cholesterol: No Congestive Heart Failure: No COPD: Yes Diabetes: No Diminished Hearing: No Headaches: Yes Heparin Induced Thrombocytopen: No Herniated Disk: Yes (NECK) Hypertension: Yes Immune Disorder: Yes (HIV POS) Respiratory: Yes Immunizations Current: Yes Renal Failure: Yes Ulcer: Yes Influenza Vaccination: Yes PNEUMOCCOCAL Vaccine (Year): 3 ?: Not : 6 Para: 6 Ovarian Cysts: Yes Tubal Ligation: Yes Past Surgical History Coronary Artery Bypass Graft: No Gynecologic Surgery: Yes Other Surgery: Yes Social History Alcohol Use: Yes (OCCASSIONALLY) Tobacco Use: Yes (4 TO 6 CIGS A DAY) Substance Use: No (denies) Allergies-Medications (Allergen,Severity, Reaction): Coded Allergies: buprenorphine (Unverified Allergy, Severe, 07/13/17) ITCHING, LIP SWELLING oxycodone (Unverified Allergy, Severe, Itching, 07/13/17) Reported Meds & Prescriptions Reported Meds & Active Scripts Active Cephalexin 500 Mg Cap 500 Mg PO Q12H 7 Days Lisinopril 20 Mg Tab 20 Mg PO DAILY Cipro (Ciprofloxacin HCl) 250 Mg Tab 250 Mg PO BID 3 Days Tramadol (Tramadol HCl) 50 Mg Tab 50 Mg PO Q6H PRN Truvada (Emtricitabine-Tenofovir Disoproxil Fumarate) 200-300 Mg Tab 1 Tab PO DAILY Prezista (Darunavir) 800 Mg Tab 800 Mg PO DAILY Tivicay (Dolutegravir Sodium) 50 Mg Tab 50 Mg PO DAILY Reported Hydrochlorothiazide 25 Mg Tab 25 Mg PO DAILY Proair Respiclick Inh (Albuterol Sulfate) 90 Mcg/Act Aerp 1 Puff INH Q4H PRN Norvir (Ritonavir) 100 Mg Cap 300 Mg PO BID Review of Systems Except as stated in HPI: all other systems reviewed are Neg Physical Exam Narrative GENERAL: Well-developed well-nourished female no acute distress no respiratory distress SKIN: Warm and dry. HEAD: Normocephalic. EYES: No scleral icterus. No injection or drainage. NECK: Supple, trachea midline. No JVD or lymphadenopathy. CARDIOVASCULAR: Regular rate and rhythm without murmurs, gallops, or rubs. RESPIRATORY: Breath sounds equal bilaterally. No accessory muscle use. GASTROINTESTINAL: Abdomen soft, non-tender, nondistended. MUSCULOSKELETAL: No cyanosis, or edema. BACK: Nontender without obvious deformity. No CVA tenderness. Data Data Last Documented VS Vital Signs Date Time Temp Pulse Resp B/P (MAP) Pulse Ox O2 Delivery O2 Flow Rate FiO2 07/17/17 06:36 84 18 140/78 (98) 100 Room Air 07/17/17 04:51 98.8 Orders Orders Electrocardiogram (07/17/17 04:59) Complete Blood Count With Diff (07/17/17 04:59) Basic Metabolic Panel (Bmp) (07/17/17 04:59) Ckmb (Isoenzyme) Profile (07/17/17 04:59) Troponin I (07/17/17 04:59) Chest, Single Ap (07/17/17 04:59) Iv Access Insert/Monitor (07/17/17 04:59) Ecg Monitoring (07/17/17 04:59) Oxygen Administration (07/17/17 04:59) Oximetry (07/17/17 04:59) Aspirin Chew (Aspirin Chew) (07/17/17 05:30) Nitroglycerin Sl (Nitrostat Sl) (07/17/17 05:30) Sodium Chlor 0.9% 1000 Ml Inj (Ns 1000 M (07/17/17 05:30) CKMB (07/17/17 05:10) CKMB% (07/17/17 05:10) Admit Order (Ed Use Only) (07/17/17 ) Barrel Ribs Solderer / Telemetry BRIDGETTE.Q8H (07/17/17 08:02) Diet Heart Healthy (07/17/17 Breakfast) Activity Oob With Assistance (07/17/17 08:02) Notify Dr: Other (07/17/17 08:02) Activity Bed Rest With Brp (07/17/17 08:02) Vital Signs (Adult) Q4H (07/17/17 08:02) Cardiac Rhythm .As Directed (07/17/17 08:02) Notify Dr: Other .PRN (07/17/17 08:02) Notify Parameters (07/17/17 08:02) Resp Oxygen Nasal Cannula (07/17/17 ) Ckmb (Isoenzyme) Profile (07/17/17 08:10) Ckmb (Isoenzyme) Profile (07/17/17 11:10) Troponin I (07/17/17 08:10) Troponin I (07/17/17 11:10) Electrocardiogram (07/17/17 08:10) Electrocardiogram (07/17/17 11:10) ^ Obtain (07/17/17 08:02) Sodium Chloride 0.9% Flush (Ns Flush) (07/17/17 08:15) Sodium Chloride 0.9% Flush (Ns Flush) (07/17/17 09:00) Nitroglycerin Sl (Nitrostat Sl) (07/17/17 08:15) Aspirin (Aspirin) (07/17/17 09:00) Alprazolam (Xanax) (07/17/17 08:15) Barrel Ribs Solderer / Telemetry BRIDGETTE.Q8H (07/17/17 08:02) Labs Laboratory Tests Test 07/17/17 05:10 White Blood Count 4.9 TH/MM3 Red Blood Count 3.82 MIL/MM3 Hemoglobin 10.5 GM/DL Hematocrit 32.5 % Mean Corpuscular Volume 85.2 FL Mean Corpuscular Hemoglobin 27.4 PG Mean Corpuscular Hemoglobin Concent 32.2 % Red Cell Distribution Width 15.2 % Platelet Count 256 TH/MM3 Mean Platelet Volume 8.5 FL Neutrophils (%) (Auto) 36.9 % Lymphocytes (%) (Auto) 47.7 % Monocytes (%) (Auto) 13.6 % Eosinophils (%) (Auto) 1.2 % Basophils (%) (Auto) 0.6 % Neutrophils # (Auto) 1.8 TH/MM3 Lymphocytes # (Auto) 2.3 TH/MM3 Monocytes # (Auto) 0.7 TH/MM3 Eosinophils # (Auto) 0.1 TH/MM3 Basophils # (Auto) 0.0 TH/MM3 CBC Comment DIFF FINAL Differential Comment Blood Urea Nitrogen 12 MG/DL Creatinine 0.83 MG/DL Random Glucose 84 MG/DL Calcium Level 8.2 MG/DL Sodium Level 139 MEQ/L Potassium Level 3.2 MEQ/L Chloride Level 107 MEQ/L Carbon Dioxide Level 22.1 MEQ/L Anion Gap 10 MEQ/L Estimat Glomerular Filtration Rate 92 ML/MIN Total Creatine Kinase 138 U/L Creatine Kinase MB 1.0 NG/ML Troponin I LESS THAN 0.02 NG/ML MDM Medical Decision Making Medical Screen Exam Complete: Yes Emergency Medical Condition: Yes Medical Record Reviewed: Yes Interpretation(s) EKG normal sinus rhythm rate 90 left atrial enlargement no acute ST elevation injury pattern or ectopy noted Last Impressions Chest X-Ray 07/17/17 3779 Signed Impressions: CONCLUSION: No acute cardiopulmonary disease. CBC & BMP Diagram 07/17/17 05:10 Calcium Level 8.2 L Vital Signs Date Time Temp Pulse Resp B/P (MAP) Pulse Ox O2 Delivery O2 Flow Rate FiO2 07/17/17 06:36 84 18 140/78 (98) 100 Room Air 07/17/17 04:51 98.8 100 20 159/89 (112) 100 Differential Diagnosis Chest pain atypical chest pain [place] pneumonia pleurisy costochondritis muscular skeletal pain Narrative Course 21-year-old female presents to the emergency department with history of hypertension tobacco use and premature onset heart disease in her mother with at age 53 from [place]. Patient's had left-sided chest pain that radiates into her left upper extremity no shortness of breath no sweats no nausea no vomiting. Patient denies dyslipidemia or diabetes. At this time patient's EKG shows no acute injury pattern first set of cardiac enzymes are normal range however risk factor profile is sufficient that she needs to have further evaluation and recommendation for observation admission chest pain center admission is made to the patient with which she agrees. Physician Communication Physician Communication Chest pain center per protocol Diagnosis Primary Impression: Chest pain Admitting Information Admitting Physician Requests: Observation Pricilla Nova MD July 17, 2017 06:09
[2017-07-17 06:24] LABS: BICARBONATE 22.1 MEQ/L (21.0-32.0); BLOOD UREA NITROGEN 12 MG/DL (7-18); CALCIUM 8.2 MG/DL (8.5-10.1); CHLORIDE 107 MEQ/L (98-107); CREATININE 0.83 MG/DL (0.50-1.00); GLOMERULAR FILTRATION RATE 92 ML/MIN (>89); GLUCOSE,RANDOM 84 MG/DL (74-106); SODIUM (NA) 139 MEQ/L (136-145)
[2017-07-17 06:28] LABS: TROPONIN I LESS THAN 0.02 NG/ML (0.02-0.05)
[2017-07-17 06:36] VITALS: BP 140/78; PULSE 84; RESP 18; O2SAT 100
--- NOTE | 2017-07-17 07:52 | EKG ---
Date Performed: 07/17/2017 Time Performed: 05:15:36 PTAGE: 41 years EKG: Sinus rhythm POSSIBLE LEFT ATRIAL ENLARGEMENT NONSPECIFIC ST ABNORMALITY BORDERLINE ECG PREVIOUS TRACING : 12/26/2016 00.23 No significant change from previous tracing noted. DOCTOR: Leighton Gilliland Interpretating Date/Time 07/17/2017 07:50:44
[2017-07-17 08:11] VITALS: O2SAT 98
[2017-07-17] MEDS ORDERED: ALPRAZolam 0.25 MG TAB PO PRN (08:15)
[2017-07-17] MEDS ORDERED: SODIUM CHLORIDE 0.9% FLUSH 10 ML FLUSH IV FLUSH PRN (08:15)
[2017-07-17] MEDS ORDERED: ONDANSETRON HCL 4 MG/2 ML VIAL IV PUSH PRN (08:30)
[2017-07-17] MEDS ORDERED: ONDANSETRON ODT 4 MG TAB PO PRN (08:30)
[2017-07-17] MEDS ORDERED: ACETAMINOPHEN 500 MG CPLT PO PRN (08:30)
[2017-07-17 08:36] VITALS: BP 141/78; PULSE 74; RESP 24; O2SAT 100
[2017-07-17 09:00] VITALS: BP 134/72; PULSE 76; RESP 18; TEMP 98.3; O2SAT 95
[2017-07-17] MEDS ORDERED: SODIUM CHLORIDE 0.9% FLUSH 10 ML FLUSH IV FLUSH SCH (09:00)
[2017-07-17] MEDS ORDERED: ASPIRIN 325 MG TAB PO SCH (09:00)
[2017-07-17 09:23] LABS: TROPONIN I LESS THAN 0.02 NG/ML (0.02-0.05)
--- NOTE | 2017-07-17 09:29 | HHI.HP ---
HPI Primary Care Physician [facility] Chief Complaint Chest pain History of Present Illness 41-year-old female history of HIV, hypertension, asthma, and current smoker presents emergency room for further evaluation of chest pain. Onset 2 AM. Location left anterior chest. Characterized as tightness. Radiation to left shoulder and left upper arm. Left shoulder described as sharp pain. Severity moderate. Duration constant. No associated symptoms of nausea, dyspnea, or diaphoresis. Endorses 1 nonbloody emesis. Movement from laying to sitting position and moving left arm makes pain worse. Denies similar pain in the past. No recent injury. Bilateral lower extremities edema x3 days. Denies any recent illness. Review of Systems General: No fatigue, weakness, fever, chills, recent illness, or change in appetite. Has been her general state of health. HEENT: No [place], no vision changes, no nasal congestion or drainage, no dysphasia, or history of acid reflux CV: Continues to have chest tightness as stated above. No palpitations, intermittent leg pain, or dizziness. RESP: No SOB, cough, hemoptysis, or recent URI. History of asthma, use of as needed inhalers rarely required. GI: No nausea, vomiting, or bowel changes. Chronic mild constipation. No pain, distention, melena, or blood in the stool. No unintentional weight gain or weight loss : No dysuria, urgency, frequency, frequent UTIs, or history of kidney stones. LMP 06/30/17. EXT: Bilateral lower leg edema x3 days, no paraesthesias MS: No recent injury, trauma, or change in ROM NEURO: No difficulty with balance, LOC, motor/sensory deficits PSYCH: No anxiety, depression, or suicidal ideation SKIN: No rashes, no concerning lesions Past Family Social History Allergies: Coded Allergies: buprenorphine (Unverified Allergy, Severe, 07/13/17) ITCHING, LIP SWELLING oxycodone (Unverified Allergy, Severe, Itching, 07/13/17) Past Medical History HIV, asthma, hypertension, renal insufficiency, peptic ulcer disease Past Surgical History Tubal ligation, cervical fusion (2010), Left hand surgery Reported Medications Reported Meds & Active Scripts Active Please note patient is unaware of names of medications she takes. List may not reflect accurate medication list. Cephalexin 500 Mg Cap 500 Mg PO Q12H 7 Days Lisinopril 20 Mg Tab 20 Mg PO DAILY Cipro (Ciprofloxacin HCl) 250 Mg Tab 250 Mg PO BID 3 Days Tramadol (Tramadol HCl) 50 Mg Tab 50 Mg PO Q6H PRN Truvada (Emtricitabine-Tenofovir Disoproxil Fumarate) 200-300 Mg Tab 1 Tab PO DAILY Prezista (Darunavir) 800 Mg Tab 800 Mg PO DAILY Tivicay (Dolutegravir Sodium) 50 Mg Tab 50 Mg PO DAILY Hydrochlorothiazide 25 Mg Tab 25 Mg PO DAILY Proair Respiclick Inh (Albuterol Sulfate) 90 Mcg/Act Aerp 1 Puff INH Q4H PRN Norvir (Ritonavir) 100 Mg Cap 300 Mg PO BID Active Ordered Medications Current Medications Medications (Trade) Dose Ordered Sig/Fiona Route Start Time Stop Time Status Last Admin Sodium Chloride 1,000 ml @ 100 mls/hr Q10H IV 07/17/17 05:30 07/17/17 06:33 (NS Flush) 2 ml UNSCH PRN IV FLUSH 07/17/17 08:15 (NS Flush) 2 ml BID IV FLUSH 07/17/17 09:00 (Nitrostat Sl) 0.4 mg Q5M PRN SL 07/17/17 08:15 (Aspirin) 325 mg DAILY PO 07/17/17 09:00 (Xanax) 0.25 mg Q8H PRN PO 07/17/17 08:15 (Tylenol) 500 mg Q4H PRN PO 07/17/17 08:30 (Zofran Inj) 4 mg Q6H PRN IV PUSH 07/17/17 08:30 (Zofran Odt) 4 mg Q6H PRN PO 07/17/17 08:30 Family History Noncontributory for early onset cardiovascular disease. Social History Known hypertension. No known CAD, hyperlipidemia, or diabetes Current smoker, currently smoke 2-3 cigarettes daily, this is decreased from 1/ 2 pack daily. Rare alcohol use. Denies use of illegal drugs. Single. Unemployed. Endorses sedentary lifestyle. Past cardiac testing None Physical Exam Vital Signs Vital Signs Date Time Temp Pulse Resp B/P (MAP) Pulse Ox O2 Delivery O2 Flow Rate FiO2 07/17/17 08:51 07/17/17 08:36 74 24 141/78 (99) 100 Room Air 5/28/18 08:11 98 21 07/17/17 06:36 84 18 140/78 (98) 100 Room Air 07/17/17 04:51 98.8 100 20 159/89 (112) 100 Physical Exam GENERAL: Alert WN, WD, NAD, -Salvadorean, moderately obese female HEAD: NC, AT CV: RRR, without murmur, rub, gallop, no JVD, S1-S2 no S3-S4. Left anterior chest pain reproduced with palpation. RESP: Expiratory wheeze throughout, diminished bases, no crackles or rhonchi. Symmetrical chest rise, nonlabored, able to speak in full sentences ABD: Soft, NT, ND, no masses, positive bowel tones EXT: Pulses +2x4, bilateral calf and ankle dependent edema +2 MS: Left shoulder and left upper arm discomfort reproduced with palpation. Normal tone x4 extremities, no obvious deformities, full range of motion NEURO: CN II through CN XII grossly intact, motor strength 5/5 PSYCH: A+O x3, flat affect, appropriate speech, insight and judgment SKIN: Normal turgor, normal texture, no lesions, no rashes, posterior cervical surgical scar Laboratory Laboratory Tests Test 07/17/17 05:10 07/17/17 08:44 White Blood Count 4.9 Red Blood Count 3.82 Hemoglobin 10.5 Hematocrit 32.5 Mean Corpuscular Volume 85.2 Mean Corpuscular Hemoglobin 27.4 Mean Corpuscular Hemoglobin Concent 32.2 Red Cell Distribution Width 15.2 Platelet Count 256 Mean Platelet Volume 8.5 Neutrophils (%) (Auto) 36.9 Lymphocytes (%) (Auto) 47.7 Monocytes (%) (Auto) 13.6 Eosinophils (%) (Auto) 1.2 Basophils (%) (Auto) 0.6 Neutrophils # (Auto) 1.8 Lymphocytes # (Auto) 2.3 Monocytes # (Auto) 0.7 Eosinophils # (Auto) 0.1 Basophils # (Auto) 0.0 CBC Comment DIFF FINAL Differential Comment Blood Urea Nitrogen 12 Creatinine 0.83 Random Glucose 84 Calcium Level 8.2 Sodium Level 139 Potassium Level 3.2 Chloride Level 107 Carbon Dioxide Level 22.1 Anion Gap 10 Estimat Glomerular Filtration Rate 92 Total Creatine Kinase 138 Creatine Kinase MB 1.0 Troponin I LESS THAN 0.02 Result Diagram: 07/17/1750907/17/17 05 Imaging Last 48 hours Impressions Chest X-Ray 07/17/17 2236 Signed Impressions: CONCLUSION: No acute cardiopulmonary disease. Course EKG NSR, no st t segment changes Caprini VTE Risk Assessment Caprini VTE Risk Assessment: No/Low Risk (score <= 1) Caprini Risk Assessment Model Point Value = 1 Point Value = 2 Point Value = 3 Point Value = 5 Age 41-60 Minor surgery BMI > 25 kg/m2 Swollen legs Varicose veins or History of unexplained or recurrent spontaneous Oral contraceptives or hormone replacement Sepsis (< 1 month) Serious lung disease, including pneumonia (< 1 month) Abnormal pulmonary function Acute myocardial infarction Congestive heart failure (< 1 month) History of inflammatory bowel disease Medical patient at bed rest Age 61-74 Arthroscopic surgery Major open surgery (> 45 min) Laparoscopic surgery (> 45 min) Malignancy Confined to bed (> 72 hours) Immobilizing plaster cast Central venous access Age >= 75 History of VTE Family history of VTE Factor V Leiden Prothrombin [id number] Lupus anticoagulant Anticardiolipin antibodies Elevated serum homocysteine Heparin-induced thrombocytopenia Other congenital or acquired thrombophilia Stroke (< 1 month) Elective arthroplasty Hip, pelvis, or leg fracture Acute spinal cord injury (< 1 month) Prophylaxis Regimen Total Risk Factor Score Risk Level Prophylaxis Regimen 0-1 Low Early ambulation 2 Moderate Order ONE of the following: *Sequential Compression Device (SCD) *Heparin 5000 units SQ BID 3-4 Higher Order ONE of the following medications: *Heparin 5000 units SQ TID *Enoxaparin/Lovenox 40 mg SQ daily (WT < 150 kg, CrCl > 30 mL/min) *Enoxaparin/Lovenox 30 mg SQ daily (WT < 150 kg, CrCl > 10-29 mL/min) *Enoxaparin/Lovenox 30 mg SQ BID (WT < 150 kg, CrCl > 30 mL/min) AND/OR *Sequential Compression Device (SCD) 5 or more Highest Order ONE of the following medications: *Heparin 5000 units SQ TID (Preferred with Epidurals) *Enoxaparin/Lovenox 40 mg SQ daily (WT < 150 kg, CrCl > 30 mL/min) *Enoxaparin/Lovenox 30 mg SQ daily (WT < 150 kg, CrCl > 10-29 mL/min) *Enoxaparin/Lovenox 30 mg SQ BID (WT < 150 kg, CrCl > 30 mL/min) AND *Sequential Compression Device (SCD) Assessment and Plan Assessment and Plan #1 Musculoskeletal chest wall pain-admitted to chest pain center. Rule out with 3 sets of EKG and cardiac enzymes. Seen and evaluated by Dr. Deleon. Discomfort easily reproduced and due to duration of discomfort musculoskeletal suspected. Plans to discharge home after being ruled out, no further cardiac testing will be required. Encouraged follow up with PCP. #2 History of HIV-continue anti-virals #3 History of hypertension-continue home bp medication once obtained. Encouraged following low sodium diet, increasing daily activity, and weight lost. #4 Tobacco use-strongly encouraged and stressed importance of tobacco cessation. Instructed to quit smoking. Upon discharge patient requesting refill of ProAir, refill will be provided upon discharge. Najma Gandara July 17, 2017 09:29
--- NOTE | 2017-07-17 10:03 | PD.CARD.PN ---
Subjective Subjective Remarks Patient was presented by the nurse practitioner, documentation laboratory and radiologic findings were reviewed and the patient was then seen and examined personally. Patient is a poor historian but documentation is consistent with information obtained. Pertinent to note that the patient went to sleep twice while I was actually in the process of talking with her. She cannot recall any trauma to her chest but does recognize that she has swelling in the area of pain in that area is very painful to touch and motion which would be consistent with trauma. Due to her current somnolence I suspect she has had chest trauma and does not remember it. Objective Medications Current Medications Medications (Trade) Dose Ordered Sig/Fiona Route Start Time Stop Time Status Last Admin Sodium Chloride 1,000 ml @ 100 mls/hr Q10H IV 07/17/17 05:30 07/17/17 06:33 (NS Flush) 2 ml UNSCH PRN IV FLUSH 07/17/17 08:15 (NS Flush) 2 ml BID IV FLUSH 07/17/17 09:00 (Nitrostat Sl) 0.4 mg Q5M PRN SL 07/17/17 08:15 (Aspirin) 325 mg DAILY PO 07/17/17 09:00 (Xanax) 0.25 mg Q8H PRN PO 07/17/17 08:15 (Tylenol) 500 mg Q4H PRN PO 07/17/17 08:30 (Zofran Inj) 4 mg Q6H PRN IV PUSH 07/17/17 08:30 (Zofran Odt) 4 mg Q6H PRN PO 07/17/17 08:30 Vital Signs / I&O Vital Signs Date Time Temp Pulse Resp B/P (MAP) Pulse Ox O2 Delivery O2 Flow Rate FiO2 07/17/17 09:00 98.3 76 18 134/72 (92) 95 07/17/17 08:51 07/17/17 08:36 74 24 141/78 (99) 100 Room Air 07/17/17 08:11 98 21 07/17/17 06:36 84 18 140/78 (98) 100 Room Air 07/17/17 04:51 98.8 100 20 159/89 (112) 100 Physical Exam Obese black lady who seems to be resting comfortably but answers questions in a mumbling manner while looking at the wall. She dropped off to sleep twice during the questioning and had to be gently awakened. Chest shows old scarring with keloid in the same areas current pain The area is very tender to palpation and mimics the pain she is complaining. Her left shoulder is also tender to palpation of motion. Diffuse expiratory wheezes noted Cardiovascular reveals a regular sinus rhythm with no gallops rubs or murmurs Extremities show a trace of edema in her somewhat diffusely tender around the ankle but no scars or trauma noted Laboratory Laboratory Tests Test 07/17/17 05:10 07/17/17 08:44 White Blood Count 4.9 TH/MM3 Red Blood Count 3.82 MIL/MM3 Hemoglobin 10.5 GM/DL Hematocrit 32.5 % Mean Corpuscular Volume 85.2 FL Mean Corpuscular Hemoglobin 27.4 PG Mean Corpuscular Hemoglobin Concent 32.2 % Red Cell Distribution Width 15.2 % Platelet Count 256 TH/MM3 Mean Platelet Volume 8.5 FL Neutrophils (%) (Auto) 36.9 % Lymphocytes (%) (Auto) 47.7 % Monocytes (%) (Auto) 13.6 % Eosinophils (%) (Auto) 1.2 % Basophils (%) (Auto) 0.6 % Neutrophils # (Auto) 1.8 TH/MM3 Lymphocytes # (Auto) 2.3 TH/MM3 Monocytes # (Auto) 0.7 TH/MM3 Eosinophils # (Auto) 0.1 TH/MM3 Basophils # (Auto) 0.0 TH/MM3 CBC Comment DIFF FINAL Differential Comment Blood Urea Nitrogen 12 MG/DL Creatinine 0.83 MG/DL Random Glucose 84 MG/DL Calcium Level 8.2 MG/DL Sodium Level 139 MEQ/L Potassium Level 3.2 MEQ/L Chloride Level 107 MEQ/L Carbon Dioxide Level 22.1 MEQ/L Anion Gap 10 MEQ/L Estimat Glomerular Filtration Rate 92 ML/MIN Total Creatine Kinase 138 U/L 117 U/L Creatine Kinase MB 1.0 NG/ML 1.0 NG/ML Troponin I LESS THAN 0.02 NG/ML LESS THAN 0.02 NG/ML Imaging Last 24 hours Impressions Chest X-Ray 07/17/17 8006 Signed Impressions: CONCLUSION: No acute cardiopulmonary disease. Assessment and Plan Assessment and Plan We will rule out for ACS using standard protocol however this patient clearly has musculoskeletal pain with associated swelling in the left chest area. This appears to be traumatic but the patient has no recollection of trauma although it should be noted that she is so somnolent that she dropped off to sleep twice during the exam. Her affect is also extremely flat. Very suspicious of underlying drug use. Current symptoms are clearly musculoskeletal and the patient is not safe with this degree of mental awakeness to put on a treadmill. She will be ruled out and discharged for the follow-up on an outpatient basis. Discussed Condition With Discussed course of action and plan with nurse practitioner Jadon Deleon MD July 17, 2017 10:02
[2017-07-17 11:50] LABS: TROPONIN I LESS THAN 0.02 NG/ML (0.02-0.05)
[2017-07-17] MEDS ORDERED: POTASSIUM CHLORIDE 20 MEQ CONTROLLED RELEASE TAB PO ONE (12:00)
--- NOTE | 2017-07-17 12:15 | HHI.DCPOC ---
Discharge Care Plan Diagnosis: (1) Musculoskeletal chest pain Goals to Promote Your Health * To prevent worsening of your condition and complications * To maintain your health at the optimal level Directions to Meet Your Goals Take your medications as prescribed Follow your dietary instruction Follow activity as directed Keep your appointments as scheduled Take your immunizations and boosters as scheduled If your symptoms worsen call your PCP, if no PCP go to Urgent Care Center or Emergency Room Smoking is Dangerous to Your Health. Avoid second hand smoke Call the 24-hour hour crisis hotline for domestic abuse at Najma Gandara July 17, 2017 12:15
[2017-07-17] MEDS ORDERED: ALBU1AER5 INH (12:21)
[2017-07-17 12:30] VITALS: BP 136/86; PULSE 76; RESP 18; TEMP 97.8; O2SAT 99
--- NOTE | 2017-07-17 14:50 | EKG ---
Date Performed: 07/17/2017 Time Performed: 11:37:40 PTAGE: 41 years EKG: Sinus rhythm NORMAL ECG PREVIOUS TRACING : 07/17/2017 08.46 DOCTOR: Jadon Deleon Interpretating Date/Time 07/17/2017 14:49:01
--- NOTE | 2017-07-17 14:51 | EKG ---
Date Performed: 07/17/2017 Time Performed: 08:46:28 PTAGE: 41 years EKG: Sinus rhythm NORMAL ECG No significant change PREVIOUS TRACING : 07/17/2017 05.15 DOCTOR: Jadon Deleon Interpretating Date/Time 07/17/2017 14:49:34
[2017-07-17 16:01] LABS: TROPONIN I LESS THAN 0.02 NG/ML (0.02-0.05)
== END 2017-07-17 14:55 | disposition home or self-care (01) ==
LOC: NEPC 04:48 → NEDA 08:05 → NEPGCP 08:58
PROVIDERS: ADMIT Internal Medicine Cardiovascular Disease; ATTEND Internal Medicine Cardiovascular Disease
DX: R07.89 Other chest pain (principal); I10 Essential (primary) hypertension; J44.9 Chronic obstructive pulmonary disease, unspecified; F17.210 Nicotine dependence, cigarettes, uncomplicated; N19 Unspecified kidney failure; R51 Headache; R60.9 Edema, unspecified; Z82.49 Family history of ischemic heart disease and other diseases of the circulatory system; Z21 Asymptomatic human immunodeficiency virus [HIV] infection status; Z98.1 Arthrodesis status; Z79.899 Other long term (current) drug therapy
CPT/HCPCS: 71045; 80048; 82550; 82552; 84484; 85025; 93005; 96360; 99285; G0378; J7030

== ENCOUNTER 2017-09-12 17:14 | Observation (INO) ==
[2017-09-12] MEDS ORDERED: Famotidine PF Inj 20 MG/2 ML Vial IV.PUSH ONE (17:36)
[2017-09-12] MEDS ORDERED: MethylPREDNISolone Sod Succinate Inj 125 MG/2 ML Vial IV.PUSH ONE (17:36)
[2017-09-12 18:15] LABS: Baso % (Auto) 0.6 % (0.0-2.0); Eos % (Auto) 0.8 % (0.0-4.0); Hematocrit 31.4 % (35.0-46.0); Hemoglobin 10.2 gm/dL (11.6-15.3); Lymph % (Auto) 43.1 % (9.0-44.0); Mean Corpuscular HGB Conc 32.5 % (32.0-36.0); Mean Corpuscular Hemoglobin 27.6 pg (27.0-34.0); Mean Corpuscular Volume 84.9 fL (80.0-100.0); Mean Platelet Volume 8.7 fL (7.0-11.0); Mono # (Auto) 0.7 th/mm3 (0.0-0.9); Mono % (Auto) 15.2 % (0.0-8.0); Neut # (Auto) 1.9 th/mm3 (1.8-7.7); Neut % (Auto) 40.3 % (16.0-70.0); Platelet Count 247 th/mm3 (150-450); Red Blood Count 3.69 mil/mm3 (4.00-5.30); Red Cell Distribution Width 15.8 % (11.6-17.2); White Blood Count 4.7 th/mm3 (4.0-11.0)
[2017-09-12 18:46] LABS: Calcium 8.4 mg/dL (8.5-10.1); Carbon Dioxide 23.3 meq/L (21.0-32.0); Potassium 3.9 meq/L (3.5-5.1)
--- NOTE | 2017-09-12 18:50 | ED ---
HPI General Chief complaint: Allergic Reaction Stated complaint: Throat Pain Time Seen by Provider: 09/12/17 17:21 Source: patient Mode of arrival: ambulatory Limitations: no limitations History of Present Illness HPI narrative: 41-year-old female that presents to the ED for evaluation of throat closing. Per patient she is been having this for 45 minutes before coming. Per patient she went to bed and she woke up with this symptoms. Per patient she states that about a year ago she had similar symptoms and was told that she almost . Per patient it feels similar. She does have a history of HIV. She states that she was recently put a new medication but she cannot really tell me the name of it. Per patient she did took it yesterday. She denies any fevers chills or sweats. No cough or runny nose. Per patient she does have a history of asthma and COPD and uses inhalers at home. She does state feeling short of breath but her main complaint is that she feels like her throat is closing. She has not taken anything for this. Other medical issues at this time. She does state that before she went to bed she took some pepperoni and went to bed. She denies any allergies to foods with does have allergies to oxycodone and buprenorphine. She does take antiviral medications. Related Data Home Medications Medication Instructions Recorded Confirmed albuterol sulfate 2 puff INHALATION Q4H PRN 09/12/17 09/12/17 Allergies Allergy/AdvReac Type Severity Reaction Status Date / Time buprenorphine Allergy Severe Anaphylaxis Verified 09/12/17 17:16 oxycodone Allergy Severe Itching Verified 09/12/17 17:16 Review of Systems ROS Unobtainable All other systems reviewed negative except as stated in HPI [facility] Medical History Medical History Asthma (Acute) COPD (chronic obstructive pulmonary disease) (Acute) Hypertension (Acute) Surgical History Surgical History S/P cervical spinal fusion (Acute) Social History Social History Substance History: Active Abuse Second Hand Smoke Exposure: Yes Smoking Status: Current some day smoker Tobacco Type: Cigarettes How Often Do You Have a Drink Containing Alcohol: Monthly or less Recent Travel in [facility] within the Last 8 Weeks: No Recent Out of Country Travel within the Last 8 Weeks: No Substance Abuse Detail Marijuana: Substance Use Status: Active Route Used Substance Abuse: Inhalation Immunization History Tetanus Immunization: Unsure Hx Influenza Vaccine This Season: No Exam Narrative Exam Narrative: GENERAL: Well-appearing SKIN: Focused skin assessment warm/dry. HEAD: Atraumatic. Normocephalic. EYES: Pupils equal and round. No scleral icterus. No injection or drainage. ENT: No nasal bleeding or discharge. Mucous membranes pink and moist. Tongue is midline. Patient does have edema noted on the uvula as well as the back of the throat. Throat still patent however. Airway appears to be patent. No lymphadenopathy. Patient appears to be protecting her airway. Tonsils are not enlarged or swollen. NECK: Trachea midline. No JVD. CARDIOVASCULAR: Regular rate and rhythm. No murmur appreciated. RESPIRATORY: No accessory muscle use. Clear to auscultation. Breath sounds equal bilaterally. GASTROINTESTINAL: Abdomen soft, non-tender, nondistended. Hepatic and splenic margins not palpable. MUSCULOSKELETAL: No obvious deformities. No clubbing. No cyanosis. No edema. NEUROLOGICAL: Awake and alert. No obvious cranial nerve deficits. Motor grossly within normal limits. Normal speech. PSYCHIATRIC: Appropriate mood and affect; insight and judgment normal. Course Initial Documented Vital Signs Temperature 97.2 F L 09/12/17 17:16 Pulse Rate 75 09/12/17 17:16 Respiratory Rate 19 09/12/17 17:16 Blood Pressure 165/92 H 09/12/17 17:16 Pulse Oximetry 100 09/12/17 17:16 Last Documented Vital Signs Temperature 97.2 F L 09/12/17 17:16 Pulse Rate 69 09/12/17 17:19 Respiratory Rate 18 09/12/17 17:19 Blood Pressure 144/96 H 09/12/17 17:19 Pulse Oximetry 99 09/12/17 17:19 Medical Decision Making AV Attestation AV supervised visit: Yes Attestation: I, Dr. Mae, have reviewed the advance practice practitioner's documentation and am in agreement, met with the patient face to face, made the diagnosis, and the medical decision making was done by me. The patient was initially evaluated by jimi Rust PA. Please see their complete history and physical. *My assessment and Findings: The patient presents with history of awakening at 4 :30 PM today with swelling in the back of her throat. She reports a hoarse quality to her voice. She reports having a similar history in the past requiring admission to the ICU for airway monitoring. The patient was diagnosed with epiglottitis. The patient has a history of HIV. She reports that her HIV medication was changed yesterday. She does not know why. She is unsure what her viral load is 4 what her CD4 count is. She is unable to name the other medications that she takes on a regular basis. The patient reports on my arrival of the room that she is hungry and thirsty. During the course of the patient's emergency department visit, the patient's history, examination, and differential diagnosis were reviewed with the patient. The patient was placed on a teletypesetter monitor with oximetry and frequent blood pressure monitoring. The patient had IV access obtained and blood work sent for analysis. The patient was initially provided Solu-Medrol 125 mg IV, and albuterol nebulizer treatment, Benadryl 50 mg IV, epinephrine 0.3 mg IM, famotidine 20 mg IV. The patient will be monitored closely for improvement. The patient's laboratory studies were reviewed and remarkable for a white count of 4.7, weight is 247, monocytes 15.2, hemoglobin 10.2, PT PTT unremarkable, chemistry is remarkable for a GFR of 77, chloride 111, calcium 8.4. Radiology studies were reviewed and remarkable for a chest x-ray that shows no evidence of acute cardiopulmonary disease, soft tissue x-ray of the neck reveals postsurgical and mild degenerative changes, no other acute abnormality. The patient will be admitted for close monitoring regarding edema. [facility] Narrative Medical decision making narrative: 41-year-old female that presents to the ED for evaluation of throat closing. Patient was properly examined and was found to have signs and symptoms of unclear etiology. Did review her medical records. Patient has been here for anaphylactic-like reactions in the past. She is also been here secondary to what appears to be epiglottitis on her last admission in 2017. She was admitted to the multiple needle stitcher and had multiple consults to different doctors. She did not had to have any airway management alert and monitoring in the ICU. Apparently she had some improvement with symptoms from the epinephrine given as well as the steroids and nebulizers. This time labs and imaging were ordered. Meds were ordered. Case was discussed with my attending who evaluated the patient and agrees with plan. Labs and imaging showed possible tonsillitis with inflammed lymph nodes. Patient still symptomatic but also asking for food and water. Uvula and throat still edematous but not completely occluding airway. Patient protecting her airway well. My attending Dr Mae recommends admission for obs for further evaluation. Dr Whitehead agreed to admission. Differential Diagnosis Differential Diagnosis: Anaphylaxis versus edema versus shortness of breath and versus swelling of the throat versus epiglottitis Medical Records Medical records reviewed: Yes I reviewed the patient's medical records. Lab Data Lab results reviewed: Yes I reviewed the patient's lab results. Result diagrams: 09/12/17 17:44 09/12/17 17:44 Lab Results 09/12/17 09/12/17 Range/Units 17:44 17:44 WBC 4.7 (4.0-11.0) th/mm3 RBC 3.69 L (4.00-5.30) mil/mm3 Hgb 10.2 L (11.6-15.3) gm/dL Hct 31.4 L (35.0-46.0) % MCV 84.9 (80.0-100.0) fL MCH 27.6 (27.0-34.0) pg MCHC 32.5 (32.0-36.0) % RDW 15.8 (11.6-17.2) % Plt Count 247 (150-450) th/mm3 MPV 8.7 (7.0-11.0) fL Neut % (Auto) 40.3 (16.0-70.0) % Lymph % (Auto) 43.1 (9.0-44.0) % [place] % (Auto) 15.2 H (0.0-8.0) % Eos % (Auto) 0.8 (0.0-4.0) % Baso % (Auto) 0.6 (0.0-2.0) % Neut # (Auto) 1.9 (1.8-7.7) th/mm3 Lymph # (Auto) 2.0 (1.0-4.8) th/mm3 [place] # (Auto) 0.7 (0.0-0.9) th/mm3 Eos # (Auto) 0.0 (0.0-0.4) th/mm3 Baso # (Auto) 0.0 (0.0-0.2) th/mm3 WBC Differential . Differential Comment Auto diff final Sodium 141 (136-145) meq/L Potassium 3.9 (3.5-5.1) meq/L Chloride 111 H (98-107) meq/L Carbon Dioxide 23.3 (21.0-32.0) meq/L Anion Gap 7 (5-15) meq/L BUN 12 (7-18) mg/dL Creatinine 0.96 (0.50-1.00) mg/dL Estimated GFR 77 L (>89) mL/min Random Glucose 85 (74-106) mg/dL Calcium 8.4 L (8.5-10.1) mg/dL Imaging Data Attestation: I personally reviewed and interpreted this imaging study as follows : Radiologist's impression: Chest X-Ray 09/12/17 17:36 CONCLUSION: No acute cardiopulmonary process. Soft Tissue Neck CT 09/12/17 17:37 CONCLUSION: 1. Increased soft tissue density at the tonsils and uvula occupy much of the oropharynx likely related to tonsillitis. 2. Scattered prominent lymph nodes seen throughout the neck likely related to the suspected inflammatory change in the oropharynx. Soft Tissue Neck X-Ray 09/12/17 17:47 CONCLUSION: Postsurgical and mild degenerative change. Discharge Plan Physicians Team ED Provider: Kelsey Mae ED Midlevel Provider: Barrera Donnelly Primary Care Provider: UNKNOWN, Rxs /Orders / Referrals /Forms Prescriptions: No Action albuterol sulfate 90 mcg/actuation Hfa Aerosol Inhaler 2 puff INHALATION Q4H PRN (Reason: Shortness Of Breath Or Wheezing) RF: 0 Discharge Interventions Interventions: Vital Signs Last Done: 09/12/17 17:19 Status ED Status: With Doctor
--- NOTE | 2017-09-12 19:11 | XR ---
EXAM DATE: 09/12/2017 7:06 PM EDT AGE/SEX: 41 years / Female INDICATIONS: Sore throat. No known injury. CLINICAL DATA: This is the patient's initial encounter. Patient reports that signs and symptoms have been present for 1 day and indicates a pain score of 5/10. MEDICAL/SURGICAL HISTORY: None. . Cervical spine surgery. COMPARISON: No prior exams available for comparison. FINDINGS: There are screws to the posterior elements of C3 and C4. The patient is status post laminectomy at th lg levels. The cervical vertebral bodies are normal in height. They are normally aligned. Minimal an terior marginal osteophytes are seen at this C3 through C5 levels. Prevertebral soft tissue swelling is not seen. The soft tissues are grossly normal. CONCLUSION: Postsurgical and mild degenerative change. Electronically signed by: Micheal Dobbs MD 09/12/2017 7:09 PM EDT
--- NOTE | 2017-09-12 19:44 | XR ---
EXAM DATE: 09/12/2017 7:08 PM EDT AGE/SEX: 41 years / Female INDICATIONS: Shortness of breath. CLINICAL DATA: This is the patient's initial encounter. Patient reports that signs and symptoms have been present for 1 day and indicates a pain score of 0/10. MEDICAL/SURGICAL HISTORY: None. None. [place] [facility] [place]. . FINDINGS: A single AP view of the chest demonstrates the lungs to be symmetrically aerated without evidence of mass, infiltrate or effusion. The cardiomediastinal contours are unremarkable. Osseous structures a re intact. CONCLUSION: No acute cardiopulmonary process. Electronically signed by: Micheal Dobbs MD 09/12/2017 7:43 PM EDT
--- NOTE | 2017-09-12 19:53 | CT ---
EXAM DATE: 09/12/2017 7:19 PM EDT AGE/SEX: 41 years / Female INDICATIONS: Neck inflammation and trouble swallowing. CLINICAL DATA: This is the patient's initial encounter. Patient reports that signs and symptoms have been present for 1 day and indicates a pain score of 4/10. MEDICAL/SURGICAL HISTORY: Chronic obstructive pulmonary disease. Hypertension. . Cervical fusion. RADIATION DOSE: 20.53 CTDI (mGy) COMPARISON: [facility], CT SOFT TISSUE NECK W CONTRAST, 12/26/2016. . TECHNIQUE: Helical acquisition was performed using a multirow detector CT scanner during the adminis tration of 75 ml Omnipaque 350 (iohexol) nonionic water-soluble contrast as a single exam dose. Usi ng automated exposure control and adjustment of the mA and/or kV according to patient size, radiation dose was kept as low as reasonably achievable to obtain optimal diagnostic quality images. DICOM fo rmat image data is available electronically for review and comparison. FINDINGS: Nasopharynx: The nasopharyngeal airway has a normal configuration. No mucosal thickening or mass is seen. Oropharynx: There is enlargement of the tonsils and uvula occupying much of the oropharynx. Larynx: The supraglottic, glottic, and infraglottic structures are intact. Parapharyngeal: The parapharyngeal spaces are grossly intact. Salivary Glands: The parotid and submandibular glands are intact. Lymph Nodes: Enlarged lymph nodes seen throughout the neck including the parapharyngeal spaces, arou nd the parotid gland, posterior triangle and submental regions. The lymph nodes measure up to 1.5 cm. Thyroid: Homogeneous enhancement without evidence of nodule. Bones: There is a defect in the right posterior arch of C1. This was present on the prior exam. This is unchanged. This is chronic. The edges are well-corticated. There is surgical hardware seen in the posterior elements of C3 and C4. The patient is status post laminectomy at C3 and C4. CONCLUSION: 1. Increased soft tissue density at the tonsils and uvula occupy much of the oropharynx likely relat ed to tonsillitis. 2. Scattered prominent lymph nodes seen throughout the neck likely related to the suspected inflamma tory change in the oropharynx. Electronically signed by: Micheal Dobbs MD 09/12/2017 7:52 PM EDT
[2017-09-12] MEDS ORDERED: Clindamycin 600 mg/NS Premix 600 MG/50 ML PIGGYBACK IV.SIG ONE (19:55)
[2017-09-12] MEDS: Sod Chloride 0.9% Inj 1,000 ML IV.CONT SCH (21:01)
--- NOTE | 2017-09-12 21:09 | P.HP ---
History of Present Illness Service: [facility] Primary Care Physician: UNKNOWN History of Present Illness: 41-year-old female with a past medical history significant for asthma, COPD, hypertension and HIV presents to the emergency department for the evaluation of a swollen throat with difficulty. The patient reports that she woke up this morning with a swollen throat. She reports difficulty swallowing. She denies any fever/chills. No drooling. Has been able to take p.o. No stridor. Able to talk without difficulty. The patient has a previous history of epiglottitis and she was concerned about recurrence. CT significant for tonsillitis. No chest pain or shortness of breath. No abdominal pain. No nausea/vomiting/ diarrhea. Review of Systems All other systems reviewed negative except as stated in HPI [facility] - History History Provided By: Patient - Medical History Medical History: Medical History (Last Reviewed 09/12/17 @ 19:14 by STELLA Rodrigez) Asthma COPD (chronic obstructive pulmonary disease) Hypertension - Surgical History Surgical History: Surgical History (Last Reviewed 09/12/17 @ 19:14 by STELLA Rodrigez) S/P cervical spinal fusion - Family History Family History: Family History (Last Updated 09/12/17 @ 21:05 by Dayanna Whitehead MD) Other No family history of cardiac disease - Tobacco History Second Hand Smoke Exposure: Yes Tobacco Use In Past 30 Days: Yes Smoking Status: Current some day smoker Tobacco Type: Cigarettes - Alcohol History How Often Do You Have a Drink Containing Alcohol: Monthly or less - Substance Use History Substance History: Active Abuse - Substance Use Type Marijuana Status: Active Route Used: Inhalation - Travel History Recent Travel in the [place] Within the Last 8 Weeks: No Recent Travel Out of the Country Within the Last 8 Weeks: No - Immunization History Tetanus Immunization: Unsure Hx Influenza Vaccine This Season: No Medications and Allergies Active Medications: Active Medications Albuterol (Ventolin Hfa Inh) 2 puff INH Q4HR LEXI Amoxicillin (Amoxil) 500 mg PO BID LEXI Sodium Chloride (Ns Inj) 1,000 mls @ 75 mls/hr IV.CONT .[id number] LEXI Methylprednisolone Sodium Succinate (Solumedrol Inj) 40 mg IV.PUSH Q8HR LEXI Ondansetron HCl (Zofran Inj) 4 mg IV.PUSH Q6H PRN PRN Reason: NAUSEA OR VOMITING Sodium Chloride (Ns Flush) 2 ml IV.FLUSH PRN PRN PRN Reason: FLUSH AFTER USING IV ACCESS Allergies Allergy/AdvReac Type Severity Reaction Status Date / Time buprenorphine Allergy Severe Anaphylaxis Verified 09/12/17 17:16 oxycodone Allergy Severe Itching Verified 09/12/17 17:16 Home Medications Medication Instructions Recorded Confirmed Type albuterol sulfate 2 puff INHALATION Q4H PRN 09/12/17 09/12/17 History Exam Vital signs: Vital Signs 09/12/17 17:16 09/12/17 17:19 Temperature 97.2 F L Pulse Rate 75 69 Respiratory Rate 19 18 Blood Pressure 165/92 H 144/96 H Pulse Oximetry 100 99 Intake & Output 09/12/17 09/12/17 09/13/17 06:59 18:59 06:59 Weight 118.841 kg Narrative: Gen.: No acute distress Head: Normocephalic. Atraumatic. EENT: Pupils equal round and reactive to light. Nose without drainage. Airway intact. Throat with mild injection and edema of the uvula. Tonsils without exudate, not swollen. Cardiovascular: Regular rate and rhythm. No murmurs, rubs or gallops. Respiratory: Lungs clear to auscultation bilaterally. No wheezes or rhonchi. Abdomen: Soft, nontender, nondistended. No peritoneal signs. Musculoskeletal: No gross deformities. No edema. Skin: No obvious rashes or erythema. Neuro: Sensory and motor grossly intact. Cranial nerves II through XII grossly intact. Psych: Appropriate mood and affect Results - Labs CBC & Chem 7: 09/12/17 17:44 09/12/17 17:44 Labs: Laboratory Results - last 24 hr 09/12/17 09/12/17 17:44 17:44 WBC 4.7 RBC 3.69 L Hgb 10.2 L Hct 31.4 L MCV 84.9 MCH 27.6 MCHC 32.5 RDW 15.8 Plt Count 247 MPV 8.7 Neut % (Auto) 40.3 Lymph % (Auto) 43.1 Hardy % (Auto) 15.2 H Eos % (Auto) 0.8 Baso % (Auto) 0.6 Neut # (Auto) 1.9 Lymph # (Auto) 2.0 Hardy # (Auto) 0.7 Eos # (Auto) 0.0 Baso # (Auto) 0.0 WBC Differential . Differential Comment Auto diff final Sodium 141 Potassium 3.9 Chloride 111 H Carbon Dioxide 23.3 Anion Gap 7 BUN 12 Creatinine 0.96 Estimated GFR 77 L Random Glucose 85 Calcium 8.4 L - Imaging Impressions Chest X-Ray 09/12/17 17:36 CONCLUSION: No acute cardiopulmonary process. Soft Tissue Neck CT 09/12/17 17:37 CONCLUSION: 1. Increased soft tissue density at the tonsils and uvula occupy much of the oropharynx likely related to tonsillitis. 2. Scattered prominent lymph nodes seen throughout the neck likely related to the suspected inflammatory change in the oropharynx. Soft Tissue Neck X-Ray 09/12/17 17:47 CONCLUSION: Postsurgical and mild degenerative change. Caprini VTE Risk Assessment Caprini VTE Risk Assessment: No/Low Risk (score <= 1) Caprini Risk Assessment Model: Point Value = 1 Point Value = 2 Point Value = 3 Point Value = 5 Age 41-60 Minor surgery BMI > 25 kg/m2 Swollen legs Varicose veins or History of unexplained or recurrent spontaneous Oral contraceptives or hormone replacement Sepsis (< 1 month) Serious lung disease, including pneumonia (< 1 month) Abnormal pulmonary function Acute myocardial infarction Congestive heart failure (< 1 month) History of inflammatory bowel disease Medical patient at bed rest Age 61-74 Arthroscopic surgery Major open surgery (> 45 min) Laparoscopic surgery (> 45 min) Malignancy Confined to bed (> 72 hours) Immobilizing plaster cast Central venous access Age >= 75 History of VTE Family history of VTE Factor V Leiden Prothrombin [id number] Lupus anticoagulant Anticardiolipin antibodies Elevated serum homocysteine Heparin-induced thrombocytopenia Other congenital or acquired thrombophilia Stroke (< 1 month) Elective arthroplasty Hip, pelvis, or leg fracture Acute spinal cord injury (< 1 month) Prophylaxis Regimen: Total Risk Factor Score Risk Level Prophylaxis Regimen 0-1 Low Early ambulation 2 Moderate Order ONE of the following: *Sequential Compression Device (SCD) *Heparin 5000 units SQ BID 3-4 Higher Order ONE of the following medications: *Heparin 5000 units SQ TID *Enoxaparin/Lovenox 40 mg SQ daily (WT < 150 kg, CrCl > 30 mL/min) *Enoxaparin/Lovenox 30 mg SQ daily (WT < 150 kg, CrCl > 10-29 mL/min) *Enoxaparin/Lovenox 30 mg SQ BID (WT < 150 kg, CrCl > 30 mL/min) AND/OR *Sequential Compression Device (SCD) 5 or more Highest Order ONE of the following medications: *Heparin 5000 units SQ TID (Preferred with Epidurals) *Enoxaparin/Lovenox 40 mg SQ daily (WT < 150 kg, CrCl > 30 mL/min) *Enoxaparin/Lovenox 30 mg SQ daily (WT < 150 kg, CrCl > 10-29 mL/min) *Enoxaparin/Lovenox 30 mg SQ BID (WT < 150 kg, CrCl > 30 mL/min) AND *Sequential Compression Device (SCD) Assessment and Plan - Plan Assessment/plan: 1. Tonsillitis Patient appears to be protecting her airway without difficulty CT significant for tonsillitis Amoxicillin IV steroids Anticipate discharge tomorrow 2. HIV Continue home antiretrovirals once medication reconciliation complete 3. COPD/hypertension Continue home medications FEN Liquid diet Electrolytes: Monitor and replete as needed NS at 75 cc/hour
[2017-09-13] MEDS: MethylPREDNISolone Sod Succinate Inj 40 MG/ML Vial IV.PUSH SCH ×3 (00:26→15:11)
--- NOTE | 2017-09-13 06:38 | P.PN ---
Subjective Interval history: f/u tonsillitis. Improved throat discomfort tolerating diet. Also complained of decrease urination Physical Exam Vital signs: Vital Signs 09/12/17 17:16 09/12/17 17:19 09/13/17 00:00 Temperature 97.2 F L 98.2 F Pulse Rate 75 69 86 Respiratory Rate 19 18 16 Blood Pressure 165/92 H 144/96 H 165/85 H Pulse Oximetry 100 99 98 09/13/17 01:14 Temperature 98.1 F Pulse Rate 80 Respiratory Rate 16 Blood Pressure 164/93 H Pulse Oximetry 98 Intake & Output 09/12/17 09/12/17 09/13/17 06:59 18:59 06:59 Weight 118.841 kg 118.841 kg Other: Post Void Residual 250 # Voids 1 Narrative: Gen.: No acute distress EENT: Pupils equal round and reactive to light. Nose without drainage. Airway intact. Throat clear. Tonsils without exudate, not swollen. Cardiovascular: Regular rate and rhythm. No murmurs, rubs or gallops. Respiratory: Lungs clear to auscultation bilaterally. No wheezes or rhonchi. Abdomen: Soft, nontender, nondistended. No peritoneal signs. Musculoskeletal: No gross deformities. No edema. No CVA tenderness Skin: No obvious rashes or erythema. Neuro: Sensory and motor grossly intact. Cranial nerves II through XII grossly intact. Results - Labs CBC & Chem 7: 09/13/17 08:04 09/13/17 08:04 Laboratory Results - last 24 hr 09/12/17 09/12/17 17:44 17:44 WBC 4.7 RBC 3.69 L Hgb 10.2 L Hct 31.4 L MCV 84.9 MCH 27.6 MCHC 32.5 RDW 15.8 Plt Count 247 MPV 8.7 Neut % (Auto) 40.3 Lymph % (Auto) 43.1 [place] % (Auto) 15.2 H Eos % (Auto) 0.8 Baso % (Auto) 0.6 Neut # (Auto) 1.9 Lymph # (Auto) 2.0 [place] # (Auto) 0.7 Eos # (Auto) 0.0 Baso # (Auto) 0.0 WBC Differential . Differential Comment Auto diff final Sodium 141 Potassium 3.9 Chloride 111 H Carbon Dioxide 23.3 Anion Gap 7 BUN 12 Creatinine 0.96 Estimated GFR 77 L Random Glucose 85 Calcium 8.4 L - Imaging Impressions Chest X-Ray 09/12/17 17:36 CONCLUSION: No acute cardiopulmonary process. Soft Tissue Neck CT 09/12/17 17:37 CONCLUSION: 1. Increased soft tissue density at the tonsils and uvula occupy much of the oropharynx likely related to tonsillitis. 2. Scattered prominent lymph nodes seen throughout the neck likely related to the suspected inflammatory change in the oropharynx. Soft Tissue Neck X-Ray 09/12/17 17:47 CONCLUSION: Postsurgical and mild degenerative change. - Procedures Non- Assessment and Plan - Plan 1. Tonsillitis Patient appears to be protecting her airway without difficulty CT significant for tonsillitis Improved continue amoxicillin Discontinue IV steroids Tolerating diet will discharge home 2. HIV Continue home antiretrovirals once medication reconciliation complete 3. COPD/hypertension Continue home medications 4. Possible UTI. Obtain urinalysis patient will be on antimicrobials. Patient to follow-up urine culture results with PCP Discharge Planning: Discharge patient to home Condition on discharge: Improved Regular Diet as tolerated Ad Sejal activity no driving Rx written: Amoxicillin Follow-up with primary care physician
[2017-09-13 08:55] LABS: Baso % (Auto) 0.1 % (0.0-2.0); Hematocrit 30.5 % (35.0-46.0); Hemoglobin 9.8 gm/dL (11.6-15.3); Lymph # (Auto) 1.2 th/mm3 (1.0-4.8); Lymph % (Auto) 20.1 % (9.0-44.0); Mean Corpuscular HGB Conc 32.1 % (32.0-36.0); Mean Corpuscular Hemoglobin 27.4 pg (27.0-34.0); Mean Corpuscular Volume 85.4 fL (80.0-100.0); Mean Platelet Volume 8.7 fL (7.0-11.0); Mono # (Auto) 0.2 th/mm3 (0.0-0.9); Mono % (Auto) 3.5 % (0.0-8.0); Neut # (Auto) 4.4 th/mm3 (1.8-7.7); Neut % (Auto) 76.3 % (16.0-70.0); Platelet Count 242 th/mm3 (150-450); Red Blood Count 3.58 mil/mm3 (4.00-5.30); Red Cell Distribution Width 16.1 % (11.6-17.2); White Blood Count 5.8 th/mm3 (4.0-11.0)
[2017-09-13 09:16] LABS: Anion Gap 9 meq/L (5-15); Blood Urea Nitrogen 13 mg/dL (7-18); Calcium 8.4 mg/dL (8.5-10.1); Carbon Dioxide 19.8 meq/L (21.0-32.0); Chloride 110 meq/L (98-107); Glomerular Filtration Rate Greater Than 89 mL/min (>89); Glucose,Random 113 mg/dL (74-106); Potassium 3.8 meq/L (3.5-5.1); Sodium 139 meq/L (136-145)
[2017-09-13] MEDS: Sod Chloride 0.9% Inj 1,000 ML IV.CONT SCH (13:13)
[2017-09-13 16:10] LABS: Bilirubin,Urine Negative (Negative); Clarity,Urine Clear (Clear); Color,Urine Yellow (Yellw/Straw); Glucose,Urine (UA) Negative (Negative); Leukocyte Esterase,Urine Moderate (Negative); Nitrite,Urine Negative (Negative); Specific Gravity,Urine 1.018 (1.002-1.035); Squamous Epithelial Cell,Urine 4 /hpf (0-5)
== END 2017-09-13 18:53 | disposition home or self-care (01) ==
LOC: NEPE 17:14 → NEPHCDU 17:14 → NEDA 17:14 → NEPHCDU 22:05
PROVIDERS: ADMIT Internal Medicine; ATTEND Internal Medicine